=== PATIENT | male | born 1950 | race Caucasian/White ===

== ENCOUNTER 2017-01-26 06:23 | Emergency (ER) | payer MEDICARE, OTHER ==
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
[2017-01-26 08:19] VITALS: BP 118/68
== END 2017-01-26 08:10 | disposition home or self-care (01) ==
LOC: ER 06:23
DX: S51.812A Laceration without foreign body of left forearm, initial encounter (principal); R42 Dizziness and giddiness; J44.9 Chronic obstructive pulmonary disease, unspecified; W01.198A Fall on same level from slipping, tripping and stumbling with subsequent striking against other object, initial encounter; Y92.009 Unspecified place in unspecified non-institutional (private) residence as the place of occurrence of the external cause; Z99.81 Dependence on supplemental oxygen; Z87.891 Personal history of nicotine dependence
CPT/HCPCS: 99283

== ENCOUNTER → 2017-02-15 | Outpatient (CLI) | payer MEDICARE, OTHER | LOC: RAD 08:20 | PROVIDERS: ATTEND Orthopaedic Surgery | DX: M25.562 Pain in left knee (principal) ==

== ENCOUNTER 2018-03-13 05:26 | Day surgery (SDC) | payer MEDICARE, OTHER ==
--- NOTE | 2018-03-08 12:11 | RADIOLOGY REPORT (SQ) ---
EXAM DESCRIPTION: CHEST PA/LATERAL COMPLETED DATE/TIME: 03/08/2018 12:00 pm REASON FOR STUDY: PRE OP COMPARISON: CT chest 07/24/2013 EXAM PARAMETERS: NUMBER OF VIEWS: two views TECHNIQUE: Digital Frontal and Lateral radiographic views of the chest acquired. RADIATION DOSE: NA LIMITATIONS: none FINDINGS: LUNGS AND PLEURA: A few heavy markings are seen at the lung bases. Likely chronic. Inter stitial changes seen at the lung bases on prior CT. Correlate clinically. Lungs otherwise clear. MEDIASTINUM AND HILAR STRUCTURES: No masses or contour abnormalities. HEART AND VASCULAR STRUCTURES: Heart normal size. No evidence for failure. BONES: Old rib fractures on the right. HARDWARE: None in the chest. OTHER: No other significant finding. IMPRESSION: Heavy bibasilar markings, likely chronic. Correlate clinically. Lungs otherwise clear. TECHNICAL DOCUMENTATION: JOB ID: [id number] [employer]- All Rights Reserved Reading location - IP/workstation name: [email or web address]
[2018-03-08 12:55] LABS: HEMATOCRIT 42.7 % (37.9-51.0); HEMOGLOBIN 14.4 g/dL (13.5-17.0); MEAN CORPUSCULAR HEMOGLOBIN 32.5 pg (27.0-33.4); MEAN CORPUSCULAR HGB CONC 33.6 g/dL (32.0-36.0); MEAN CORPUSCULAR VOLUME 97 fl (80-97); PLATELET COUNT 109 10^3/uL (150-450); RED BLOOD COUNT 4.41 10^6/uL (4.35-5.55); RED CELL DISTRIBUTION WIDTH 16.2 % (11.5-14.0); WHITE BLOOD COUNT 7.1 10^3/uL (4.0-10.5)
[2018-03-08 12:59] LABS: APPEARANCE,URINE CLEAR; BILIRUBIN,URINE NEGATIVE (NEGATIVE); COLOR,URINE YELLOW; GLUCOSE, URINE NEGATIVE (NEGATIVE); KETONES,URINE NEGATIVE (NEGATIVE); LEUKOCYTE ESTERASE,URINE NEGATIVE (NEGATIVE); NITRITE,URINE NEGATIVE (NEGATIVE); PROTEIN,URINE NEGATIVE (NEGATIVE); URINE SPECIFIC GRAVITY 1.021; UROBILINOGEN,URINE NEGATIVE mg/dL (<2.0)
[2018-03-08 12:59] LABS: INTERNATIONAL RATION (INR) 0.97; PROTHROMBIN TIME 13.3 SEC (11.4-15.4)
[2018-03-08 13:00] LABS: PARTIAL THROMBOPLASTIN TIME 33.9 SEC (23.5-35.8)
--- NOTE | 2018-03-08 22:43 | EKG REPORT ---
SEVERITY:- ABNORMAL ECG - SINUS BRADYCARDIA LEFT ANTERIOR FASCICULAR BLOCK RVH WITH SECONDARY REPOLARIZATION ABNORMALITY : Confirmed by: Anthony Shabazz 08-Mar-2018 19:43:01
[~2018-03-13 05:26] MED LIST: CEFAZOLIN 1 GM/D5W RTU 1 GM/50 ML RTUPB IV PRN; LACTATED RINGERS 1000 ML IV PRN; LIDOCAINE 0.5% INJ-PF (5 MG/ML) 50 ML SDV SUBCUT PRN
[2018-03-13] MEDS ORDERED: ALBUTEROL SULFATE 0.083% NEB 2.5 MG/3 ML AMPUL NEB ONE (06:10)
[2018-03-13] MEDS ORDERED: LIDOCAINE 1% INJ-PF (10 MG/ML) 30 ML SDV ONE (06:48)
[2018-03-13] MEDS ORDERED: SODIUM BICARBONATE 8.4% INJ 50 MEQ/50 ML DISP.SYRIN ONE (06:48)
[2018-03-13] MEDS ORDERED: FENTANYL CITRATE INJ/PF 100 MCG/2 ML AMPUL ONE (06:53)
[2018-03-13] MEDS ORDERED: KETAMINE HCL INJ 500 MG/10 ML VIAL ONE (06:53)
[2018-03-13] MEDS ORDERED: MIDAZOLAM 2 MG/2 ML INJ ONE (06:54)
[2018-03-13] MEDS ORDERED: PROPOFOL INJ 200 MG/20 ML VIAL IV ONE (06:54)
[2018-03-13] MEDS ORDERED: DEXMEDETOMIDINE INJ 80 MCG/20 ML VIAL IV ONE (07:09)
[2018-03-13] MEDS ORDERED: FENTANYL CITRATE INJ/PF 100 MCG/2 ML AMPUL IV PRN (08:11)
[2018-03-13] MEDS ORDERED: DIPHENHYDRAMINE HCL 50 MG/ML VIAL IV PRN (08:11)
[2018-03-13] MEDS ORDERED: PROMETHAZINE HCL INJ 25 MG/1 ML VIAL IV PRN (08:11)
[2018-03-13] MEDS ORDERED: CEFAZOLIN INJ 1 GM VIAL ONE (08:46)
[2018-03-13] MEDS ORDERED: ONDANSETRON HCL INJ/PF 4 MG/2 ML SDV ONE (08:48)
[2018-03-13] MEDS ORDERED: OXYCODONE-ACETAMINOPHEN 5-325 MG TABLET PO PRN (09:00)
--- NOTE | 2018-03-13 09:06 | OPERATIVE REPORT E ---
Operative Report NAME: IRAIS COBIAN : 1950 AGE: 68Y DATE OF SURGERY: 03/13/2018 ROOM: PREOPERATIVE DIAGNOSIS: L1 compression fracture with intractable pain. POSTOPERATIVE DIAGNOSIS: L1 compression fracture with intractable pain. OPERATIVE PROCEDURE: L1 bilateral balloon kyphoplasty using peripedicular approach. SURGEON: ALIN PARIKH M.D. ANESTHESIA: MAC. ASSISTANTS: None. FINDINGS: Fracture as described above compared with MRI. COMPLICATIONS: Small amount of extravasation of cement into the L1-L2 disk. BLOOD LOSS: Minimal. INDICATIONS: Intractable pain with positive MRI findings. PROCEDURE NOTE: After obtaining informed consent and advising the patient of the risks and benefits, including neurological injury, paralysis, exacerbation of pain, bleeding, infection, allergic reaction, and , he was taken to the operating room and placed comfortably in the prone position. MAC anesthesia was administered. He was prepped with chlorhexidine with appropriate drying time followed by appropriate draping. Fluoroscopy was used to evaluate the spine and identify the affected L1 vertebral body. AP and lateral views were utilized simultaneously. Beginning with the right peripedicular approach, a suitable skin entrance site was identified and anesthetized with 1% lidocaine with bicarb followed by anesthetization with the same material down to the pedicle as seen on the AP and lateral views. A small incision was then made at the selected region. The express trocar was then advanced with several repositioning attempts. The needle entered satisfactorily in the peripedicular approach and into the vertebral body. Despite several attempts to get it to move more superiorly, it remained somewhat inferior into the vertebral body itself. This procedure was then repeated on the right. Balloons were inflated and removed. The filling tubes were placed, and beginning on the right side, filling with cement was initiated. A total of 0.8 mL were injected into the right region with a small amount of extravasation of cement into the L1-L2 disk. A total of 1.2 mL of cement was placed into the left pedicle with no evidence of extravasation and bilateral spreading of the cement into the vertebral body. The decision was made to stop to avoid further extravasation into the L1-L2 disk. Instrumentation was removed after the cement had been allowed hardening time. The region was cleansed and sterile dressings were then placed. The patient was then taken to the PACU for further postoperative care and monitoring. DICTATING PHYSICIAN: ALIN PARIKH M.D. [id number] PHY#: [id number] ID: [id number] JOB#: [id number] ACCT: [id number] cc:ALIN PARIKH M.D. >
--- NOTE | 2018-03-13 10:34 | RADIOLOGY REPORT (SQ) ---
EXAM DESCRIPTION: NO CHG FLUORO; L SPINE 2 VIEWS COMPLETED DATE/TIME: 03/13/2018 9:16 am REASON FOR STUDY: KYPHOPLASTY LUMBAR ASST WITH FLUORO IN OR S32.010S WEDGE COMPRESSION FRACTURE OF FIRST LUMBAR VERTEBRA Z79.01 MCC (CURRENT) USE OF ANTICOAGULANTS COMPARISON: None. FLUOROSCOPY TIME: 4.3 minutes 62 images saved to PACS. TECHNIQUE: Intra-operative images acquired during surgical procedure to evaluate progress. NUMBER OF IMAGES: 62 LIMITATIONS: None. FINDINGS: Selected images from kyphoplasty approximately L1. IMPRESSION: IMAGE(S) OBTAINED DURING PROCEDURE. COMMENT: Quality ID 145: Final reports for procedures using fluoroscopy that document radiation exp osure indices, or exposure time and number of fluorographic images (if radiation exposure indices are not available) Please consult full operative report of the attending physician for description of the procedure. TECHNICAL DOCUMENTATION: JOB ID: [id number] [employer]- All Rights Reserved Reading location - IP/workstation name: [email or web address]
--- NOTE | 2018-03-13 10:34 | RADIOLOGY REPORT (SQ) ---
EXAM DESCRIPTION: NO CHG FLUORO; L SPINE 2 VIEWS COMPLETED DATE/TIME: 03/13/2018 9:16 am REASON FOR STUDY: KYPHOPLASTY LUMBAR ASST WITH FLUORO IN OR S32.010S WEDGE COMPRESSION FRACTURE OF FIRST LUMBAR VERTEBRA Z79.01 DETENTION (CURRENT) USE OF ANTICOAGULANTS COMPARISON: None. FLUOROSCOPY TIME: 4.3 minutes 62 images saved to PACS. TECHNIQUE: Intra-operative images acquired during surgical procedure to evaluate progress. NUMBER OF IMAGES: 62 LIMITATIONS: None. FINDINGS: Selected images from kyphoplasty approximately L1. IMPRESSION: IMAGE(S) OBTAINED DURING PROCEDURE. COMMENT: Quality ID 145: Final reports for procedures using fluoroscopy that document radiation exp osure indices, or exposure time and number of fluorographic images (if radiation exposure indices are not available) Please consult full operative report of the attending physician for description of the procedure. TECHNICAL DOCUMENTATION: JOB ID: [id number] [employer]- All Rights Reserved Reading location - IP/workstation name: [email or web address]
[2018-03-13 11:34] VITALS: BP 90/53
== END 2018-03-13 10:20 | disposition home or self-care (01) ==
LOC: OROUT 05:26
PROVIDERS: ATTEND Pain Medicine Interventional Pain Medicine
DX: S32.010S Wedge compression fracture of first lumbar vertebra, sequela (principal); X58.XXXS Exposure to other specified factors, sequela; J44.9 Chronic obstructive pulmonary disease, unspecified; M06.9 Rheumatoid arthritis, unspecified; E07.9 Disorder of thyroid, unspecified; I25.2 Old myocardial infarction; N18.3 Chronic kidney disease, stage 3 (moderate); Z79.01 Long term (current) use of anticoagulants; Z79.891 Long term (current) use of opiate analgesic; Z79.899 Other long term (current) drug therapy; Z79.51 Long term (current) use of inhaled steroids; Z79.82 Long term (current) use of aspirin; Z99.81 Dependence on supplemental oxygen; Z85.828 Personal history of other malignant neoplasm of skin
CPT/HCPCS: 93005; 36415; 85027; 85610; 85730; 81001; 71046; 72100; 93010; 94640; 22514; Q9966; J2250; J0690 ×2; J3010; J3490 ×3; J2405; A9270; 1936; J2704

== ENCOUNTER 2018-07-06 12:37 | Emergency (ER) | payer MEDICARE, OTHER ==
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
[2018-07-06 14:43] VITALS: BP 125/78
--- NOTE | 2018-07-06 21:38 | EKG REPORT ---
SEVERITY:- ABNORMAL ECG - SINUS RHYTHM LEFT ANTERIOR FASCICULAR BLOCK CONSIDER RVH W/ SECONDARY REPOL ABNORMALITY BORDERLINE PROLONGED QT INTERVAL : Confirmed by: Anthony Shabazz 06-Jul-2018 21:37:49
== END 2018-07-06 14:43 | disposition home or self-care (01) ==
LOC: ER 12:37
DX: R06.02 Shortness of breath (principal); J44.9 Chronic obstructive pulmonary disease, unspecified; Z99.81 Dependence on supplemental oxygen; X37.0XXA Hurricane, initial encounter; Z87.891 Personal history of nicotine dependence
CPT/HCPCS: 93005; 93010; 99284

== ENCOUNTER 2018-07-07 16:29 | Emergency (ER) | payer MEDICARE, OTHER ==
[2018-07-07 17:00] VITALS: BP 121/63
[2018-07-07] MEDS ORDERED: CARVEDILOL 6.25 MG TABLET PO ONE (17:59)
[2018-07-07] MEDS ORDERED: ASPIRIN 81 MG TABLET, ENT COATED PO ONE (18:00)
--- NOTE | 2018-07-07 18:07 | ER Document Report ---
ED General - General Chief Complaint: Shortness Of Breath Stated Complaint: MED REFILL Time Seen by Provider: 07/07/18 17:59 Mode of Arrival: Wheelchair Information source: Patient Notes: Patient is here to get the evening dose of his medication. He said he has his medication at home but he needs his evening dose now. Is requesting to get Coreg 6.25 mg p.o., aspirin 81 mg p.o. Patient otherwise does not have any medical complaints currently. Patient is home O2 dependent. Review of system is negative. TRAVEL OUTSIDE OF THE [place] IN LAST 30 DAYS: No - HPI Quality of pain: No pain Severity: None Pain Level: Denies Associated symptoms: None Exacerbated by: Denies Relieved by: Denies Similar symptoms previously: No Recently seen / treated by doctor: No - Related Data Allergies/Adverse Reactions: egg [Egg] Allergy (Verified 07/06/18 12:38) Influenza TV-S 07-01 Vaccine [From Fluarix [id number] (PF)] Allergy (Verified 12:38) Past Medical History - Social History Smoking Status: Unknown if Ever Smoked Family History: Reviewed & Not Pertinent - Past Medical History Cardiac Medical History: Denies: Hx Coronary Artery Disease, Hx Heart Attack, Hx Hypertension - LOW BP Pulmonary Medical History: Reports: Hx Asthma, Hx COPD - 8L O2 Denies: Hx Bronchitis, Hx Pneumonia Neurological Medical History: Denies: Hx Cerebrovascular Accident, Hx Seizures Renal/ Medical History: Denies: Hx Peritoneal Dialysis Musculoskeletal Medical History: Reports Hx Arthritis Past Surgical History: Reports: Hx Orthopedic Surgery - left thumb - Immunizations Hx Diphtheria, Pertussis, Tetanus Vaccination: Yes Review of Systems - Review of Systems Constitutional: denies: Chills, Fever EENT: No symptoms reported Cardiovascular: No symptoms reported Respiratory: No symptoms reported Gastrointestinal: No symptoms reported Genitourinary: No symptoms reported Male Genitourinary: No symptoms reported Musculoskeletal: No symptoms reported Skin: No symptoms reported Hematologic/Lymphatic: No symptoms reported Neurological/Psychological: No symptoms reported -: Yes All other systems reviewed and negative Physical Exam - Vital signs Vitals: Temp Pulse Resp BP Pulse Ox 98.0 F 92 28 H 121/63 92 07/07/18 16:43 07/07/18 16:43 07/07/18 16:43 07/07/18 16:43 07/07/18 16:43 - General General appearance: Appears well, Alert In distress: None - HEENT Head: Normocephalic, Atraumatic Eyes: Normal Pupils: PERRL - Respiratory Respiratory status: No respiratory distress Chest status: Nontender Breath sounds: Normal Chest palpation: Normal - Cardiovascular Rhythm: Regular Heart sounds: Normal auscultation Murmur: No - Abdominal Inspection: Normal Distension: No distension Bowel sounds: Normal Tenderness: Nontender Organomegaly: No organomegaly - Back Back: Normal, Nontender - Extremities General upper extremity: Normal inspection, Nontender, Normal color, Normal ROM , Normal temperature General lower extremity: Normal inspection, Nontender, Normal color, Normal ROM , Normal temperature, Normal weight bearing. No: Saniya's sign - Neurological Neuro grossly intact: Yes Cognition: Normal Orientation: AAOx4 [place] Coma Scale Eye Opening: Spontaneous Kristin Coma Scale Verbal: Oriented [place] Coma Scale Motor: Obeys Commands [place] Coma Scale Total: 15 Speech: Normal Motor strength normal: LUE, RUE, LLE, RLE Sensory: Normal - Psychological Associated symptoms: Normal affect, Normal mood - Skin Skin Temperature: Warm Skin Moisture: Dry Skin Color: Normal Course - Vital Signs Vital signs: Temp Pulse Resp BP Pulse Ox 98.0 F 92 28 H 121/63 92 07/07/18 16:43 07/07/18 16:43 07/07/18 16:43 07/07/18 16:43 07/07/18 16:43 Discharge - Discharge Clinical Impression: Normal physical examination Condition: Stable Disposition: HOME, SELF-CARE Additional Instructions: Please follow-up with her primary doctor tomorrow morning. Return to the emergency room if her condition worsens. Referrals: JEIMY ONEILL MD [ACTIVE STAFF] - Follow up as needed
== END 2018-07-07 18:01 | disposition home or self-care (01) ==
LOC: ER 16:29
DX: Z00.00 Encounter for general adult medical examination without abnormal findings (principal); J44.9 Chronic obstructive pulmonary disease, unspecified; Z99.81 Dependence on supplemental oxygen
CPT/HCPCS: 99284; A9270 ×2

== ENCOUNTER 2020-03-09 11:53 | Inpatient (IN) | payer MEDICARE, OTHER ==
[2020-03-09 12:07] LABS: ABSOLUTE LYMPHOCYTES (AUTO) 1.4 10^3/uL (0.5-4.7); ABSOLUTE MONOCYTES (AUTO) 0.2 10^3/uL (0.1-1.4); BASOPHILS % (AUTO) 0.3 % (0-2); EOSINOPHILS % (AUTO) 0.2 % (0-6); HEMATOCRIT 24.6 % (37.9-51.0); HEMOGLOBIN 8.6 g/dL (13.5-17.0); LYMPHOCYTES % (AUTO) 21.1 % (13-45); MEAN CORPUSCULAR HEMOGLOBIN 40.1 pg (27.0-33.4); MONOCYTES % (AUTO) 2.5 % (3-13); PLATELET COUNT 124 10^3/uL (150-450); RED BLOOD COUNT 2.14 10^6/uL (4.35-5.55); RED CELL DISTRIBUTION WIDTH 15.2 % (11.5-14.0); SEGMENTED NEUTROPHILS % (AUTO) 75.9 % (42-78); TOTAL CELLS COUNTED % (AUTO) 100 %; WHITE BLOOD COUNT 6.6 10^3/uL (4.0-10.5)
[2020-03-09 12:15] LABS: MEAN CORPUSCULAR VOLUME 115 fl (80-97)
[2020-03-09 12:26] LABS: PLATELET COMMENT DECREASED; PLATELET LARGE PRESENT; POLYCHROMASIA SLIGHT
[2020-03-09 12:30] LABS: ALBUMIN 4.8 g/dL (3.5-5.0); ALKALINE PHOSPHATASE 67 U/L (38-126); ANION GAP 11 (5-19); ASPARTATE AMINO TRANSFERASE 27 U/L (17-59); BILIRUBIN,DIRECT 0.3 mg/dL (0.0-0.4); BILIRUBIN,TOTAL 1.5 mg/dL (0.2-1.3); BLOOD UREA NITROGEN 18 mg/dL (7-20); CALCIUM 8.8 mg/dL (8.4-10.2); CARBON DIOXIDE 28 mmol/L (22-30); CHLORIDE 96 mmol/L (98-107); CREATINE KINASE 200 U/L (55-170); GLUCOSE 140 mg/dL (75-110); POTASSIUM 4.1 mmol/L (3.6-5.0); TOTAL PROTEIN 8.3 g/dL (6.3-8.2)
[2020-03-09 12:42] LABS: CREATINE KINASE MB 8.77 ng/mL (<4.55); NT PRO BNP 4220 pg/mL (<125)
[2020-03-09 12:44] LABS: TROPONIN I < 0.012 ng/mL
--- NOTE | 2020-03-09 13:01 | RADIOLOGY REPORT (SQ) ---
EXAM DESCRIPTION: CHEST SINGLE VIEW IMAGES COMPLETED DATE/TIME: 03/09/2020 12:47 pm REASON FOR STUDY: sob COMPARISON: None. EXAM PARAMETERS: NUMBER OF VIEWS: One view. TECHNIQUE: Single frontal radiographic view of the chest acquired. RADIATION DOSE: NA LIMITATIONS: None. FINDINGS: LUNGS AND PLEURA: Ill-defined left lingular and basilar opacities. Linear right infrahila r opacities. No large effusion. No pneumothorax. MEDIASTINUM AND HILAR STRUCTURES: No masses. Contour normal. HEART AND VASCULAR STRUCTURES: Borderline enlarged cardiac silhouette. Vascular calcifications. BONES: No acute findings. HARDWARE: None in the chest. OTHER: No other significant finding. IMPRESSION: Ill-defined left basilar opacities, possibly atelectasis or infection. Mild linear righ t infrahilar opacities, likely atelectasis. TECHNICAL DOCUMENTATION: JOB ID: [id number] 2010 [employer]- All Rights Reserved Reading location - IP/workstation name: [email or web address]
[2020-03-09 13:22] LABS: APPEARANCE,URINE CLEAR; BILIRUBIN,URINE NEGATIVE (NEGATIVE); COLOR,URINE YELLOW; GLUCOSE, URINE NEGATIVE (NEGATIVE); KETONES,URINE NEGATIVE (NEGATIVE); LEUKOCYTE ESTERASE,URINE NEGATIVE (NEGATIVE); NITRITE,URINE NEGATIVE (NEGATIVE); PROTEIN,URINE NEGATIVE (NEGATIVE); URINE SPECIFIC GRAVITY 1.018
--- NOTE | 2020-03-09 14:48 | ER Document Report ---
ED General - General Chief Complaint: Shortness Of Breath Stated Complaint: SHORTNESS OF BREATH Time Seen by Provider: 03/09/20 12:01 Information source: Patient TRAVEL OUTSIDE OF THE [place] IN LAST 30 DAYS: No - HPI Notes: Patient arrives complaining of shortness of breath. Patient states he has been short of breath for several days. He states he normally wears 8 L of oxygen at home. He states he is not increased this because his doctor told him not to go any higher than 8. He states he occasionally uses some nebulizers but has not been doing this recently. He states that he has been more short of breath when he exerts himself and better with resting. He denies any known history of congestive heart failure. He states he does have COPD. Patient denies any fevers. No known COVID exposures. He has had a dry cough. But he states his dry cough is no worse than usual. There is no radiation of symptoms. They have been moderate to severe. They have been intermittent. - Related Data Allergies/Adverse Reactions: egg [Egg] Allergy (Verified 03/09/20 12:00) Influenza TV-S - Vaccine [From Fluarix [id number] (PF)] Allergy (Verified 03/09/20 12:00) Home Medications: Advair,. Albuteral,. Azithromycin. Butrans patch. zyrtec. coreg. Voltare gel. benadryl. ASA. Fluticasone propionate N/S. Neurontin. lidocaine. Mucinex. Nasonex. O2. Prednisone. Simvastatin. Singulair. S piriva. synthroid. zolpidem tartrate Past Medical History - General Information source: Patient - Social History Smoking Status: Former Smoker Chew tobacco use (# tins/day): No Frequency of alcohol use: None Drug Abuse: None Family History: Reviewed & Not Pertinent Patient has homicidal ideation: No - Past Medical History Cardiac Medical History: Denies: Hx Coronary Artery Disease, Hx Heart Attack, Hx Hypertension - LOW BP Pulmonary Medical History: Reports: Hx Asthma, Hx COPD - 8L O2 Denies: Hx Bronchitis, Hx Pneumonia Neurological Medical History: Denies: Hx Cerebrovascular Accident, Hx Seizures Renal/ Medical History: Denies: Hx Peritoneal Dialysis Musculoskeletal Medical History: Reports Hx Arthritis Past Surgical History: Reports: Hx Orthopedic Surgery - left thumb - Immunizations Hx Diphtheria, Pertussis, Tetanus Vaccination: Yes Review of Systems - Review of Systems Constitutional: Malaise, Weakness. denies: Chills, Fever Cardiovascular: denies: Chest pain, Palpitations Respiratory: Cough, Short of breath -: Yes All other systems reviewed and negative Physical Exam - Vital signs Vitals: Pulse Ox 89 L 03/09/20 11:53 Interpretation: Hypoxic - General General appearance: Appears well, Alert - HEENT Head: Normocephalic, Atraumatic Eyes: Normal Pupils: PERRL - Respiratory Respiratory status: No respiratory distress Chest status: Nontender Breath sounds: Decreased air movement Chest palpation: Normal - Cardiovascular Rhythm: Regular Heart sounds: Normal auscultation Murmur: No - Abdominal Inspection: Normal Distension: No distension Bowel sounds: Normal Tenderness: Nontender Organomegaly: No organomegaly - Back Back: Normal, Nontender - Extremities General upper extremity: Normal inspection, Nontender, Normal color, Normal ROM, Normal temperature General lower extremity: Normal inspection, Nontender, Normal color, Normal ROM, Normal temperature, Normal weight bearing. No: Saniya's sign - Neurological Neuro grossly intact: Yes Cognition: Normal Orientation: AAOx4 Kristin Coma Scale Eye Opening: Spontaneous Kristin Coma Scale Verbal: Oriented [place] Coma Scale Motor: Obeys Commands Kristin Coma Scale Total: 15 Speech: Normal Motor strength normal: LUE, RUE, LLE, RLE Sensory: Normal - Psychological Associated symptoms: Normal affect, Normal mood - Skin Skin Temperature: Warm Skin Moisture: Dry Skin Color: Pale Course - Vital Signs Vital signs: Temp Pulse Resp BP Pulse Ox 97.7 F 12 107/66 100 03/09/20 12:03 03/09/20 13:01 03/09/20 12:00 03/09/20 13:01 - Laboratory Result Diagrams: 03/09/20 11:45 03/09/20 11:45 Laboratory results interpreted by me: 03/09/20 03/09/20 03/09/20 11:45 11:45 11:45 RBC 2.14 L Hgb 8.6 L Hct 24.6 L MCV 115 H MCH 40.1 H RDW 15.2 H Plt Count 124 L [place] % (Auto) 2.5 L Sodium 135.0 L Chloride 96 L Creatinine 1.46 H Est GFR ( Amer) 57 L Est GFR (MDRD) Non-Af 47 L Glucose 140 H Total Bilirubin 1.5 H Creatine Kinase 200 H CK-MB (CK-2) 8.77 H NT-Pro-B Natriuret Pep 4220 H Total Protein 8.3 H Urine Urobilinogen 03/09/20 13:00 RBC Hgb Hct MCV MCH RDW Plt Count [place] % (Auto) Sodium Chloride Creatinine Est GFR ( Amer) Est GFR (MDRD) Non-Af Glucose Total Bilirubin Creatine Kinase CK-MB (CK-2) NT-Pro-B Natriuret Pep Total Protein Urine Urobilinogen 4.0 H - Diagnostic Test Radiology reviewed: Image reviewed, Reports reviewed - EKG Interpretation by De EKG shows normal: Sinus rhythm Rate: Normal - 67 Rhythm: NSR [place]/QRS: RBBB Discharge - Discharge Clinical Impression: Anemia Qualifiers: Anemia type: unspecified type Qualified Code(s): D64.9 - Anemia, unspecified Dyspnea Qualifiers: Dyspnea type: dyspnea on exertion Qualified Code(s): R06.00 - Dyspnea, unspecified CHF (congestive heart failure) Qualifiers: Heart failure type: unspecified Heart failure chronicity: acute Qualified Code(s): I50.9 - Heart failure, unspecified Condition: Serious Disposition: ADMITTED INPATIENT Admitting Provider: Agueda (Hospitalist) Unit Admitted: Telemetry
--- NOTE | 2020-03-09 15:16 | RADIOLOGY REPORT (SQ) ---
EXAM DESCRIPTION: CT CHEST WITHOUT IMAGES COMPLETED DATE/TIME: 03/09/2020 2:28 pm REASON FOR STUDY: dyspnea COMPARISON: 03/09/2020 TECHNIQUE: CT scan performed of the chest without intravenous contrast. Images reviewed with lung, soft tissue and bone windows. Reconstructed coronal and sagittal MPR images reviewed. All images st ored on PACS. All CT scanners at this facility use dose modulation, iterative reconstruction, and/or weight based d osing when appropriate to reduce radiation dose to as low as reasonably achievable (ALARA). [facility]: Dose Right [facility]: CareDose [facility]: Dose Right [facility]: Teradose 4D [facility]: Smart Conisus RADIATION DOSE: CT Rad equipment meets quality standard of care and radiation dose reduction techniq ues were employed. CTDIvol: 17.4 mGy. DLP: 689 mGy-cm. mGy. LIMITATIONS: No technical limitations. FINDINGS: LUNGS AND PLEURA: Mild left basilar lingular peripheral consolidation ground-glass attenua tion. Emphysematous change bilaterally. Mild pleural thickening along the left posterior and latera l lung base. No pleural effusion. No pneumothorax. No discrete pulmonary mass. There is a ill-def ined right lower lobe pulmonary nodule measuring approximately 8 mm (series 4, image 37). HILAR AND MEDIASTINAL STRUCTURES: No mediastinal, hilar or axillary adenopathy. HEART AND VASCULAR STRUCTURES: Cardiomegaly. Three-vessel coronary atherosclerosis. No significant pericardial effusion. UPPER ABDOMEN: Partially visualized aortic stent graft. No acute findings. THYROID AND OTHER SOFT TISSUES: No masses. No adenopathy. BONES: No acute bony abnormality. No suspicious lytic or blastic osseous lesions. Chronic posterior right-sided rib fractures. HARDWARE: Partially visualized abdominal aortic stent graft. OTHER: No other significant findings. IMPRESSION: 1. Mild left basilar and lingular peripheral consolidation and ground-glass attenuation likely atelectatic change although infectious/inflammatory process not entirely excluded. 2. Significant three-vessel coronary atherosclerosis. Cardiomegaly. 3. Emphysema. 4. 8 mm right lower lobe ground-glass nodule. Follow-up as below. COMMENT: Fleischner Criteria for Ground Glass Nodules: >6 mm ground glass single nodule: CT 6-12 mo, then CT every 2 yr until 5 yr TECHNICAL DOCUMENTATION: JOB ID: [id number] Quality ID # [id number]: Final reports with documentation of one or more dose reduction techniques (e.g., Au tomated exposure control, adjustment of the mA and/or kV according to patient size, use of iterative reconstruction technique) 2010 [employer]- All Rights Reserved Reading location - IP/workstation name: [email or web address]
[2020-03-09] MEDS ORDERED: MAG HYDROX/AL HYDROX/SIMETH SUSP 30 ML UDCUP PO PRN (17:43)
[2020-03-09] MEDS ORDERED: MAGNESIUM HYDROXIDE SUSP 30 ML UDCUP PO PRN (17:43)
[2020-03-09] MEDS ORDERED: ZOLPIDEM TARTRATE 5 MG TABLET PO PRN (17:43)
[2020-03-09] MEDS ORDERED: LEVALBUTEROL HCL NEB 1.25 MG/3 ML AMPUL NEB PRN (17:43)
[2020-03-09] MEDS ORDERED: PROMETHAZINE HCL INJ 25 MG/1 ML VIAL IV PRN (17:43)
[2020-03-09] MEDS ORDERED: ACETAMINOPHEN 325 MG TABLET PO PRN (17:43)
--- NOTE | 2020-03-09 19:09 | PDOC H&P ---
History of Present Illness Admission Date/PCP: 03/09/20 16:23 Patient complains of: Shortness of breath History of Present Illness: IRAIS COBIAN is a 70 year old male who reports that he has been experiencing increased shortness of breath. He does have chronic obstructive pulmonary disease and is on home oxygen. He has hypothyroidism and is on levothyroxine. He has a history of an abdominal aortic aneurysm but denies any cardiac history but he is on statin therapy and carvedilol. He denies history of anemia but his hemoglobin is 8.6 with an MCV of 115. He is requiring nasal cannula oxygen (that he is on at home). He keeps a meticulous list of his medications. In addition to the COPD he does have chronic pain. On exam his chest x-ray has some groundglass appearance that could be heart failure. He does have marked cardiomegaly coronary atherosclerosis was noted on the CT scan. There was an 8 mm pulmonary nodule. His brain natruretic peptide was elevated. He has most likely cause of shortness of breath is combination of his COPD and heart failure. He will be admitted for further evaluation to the hospitalist service. This will include medication management with the addition of diuretic therapy as well checking a lipid panel, TSH. I have ordered fecal occult blood testing as well as anemia work-up. Past Medical History Cardiac Medical History: Reports: Myocardial Infarction - 1998, Hyperlipidema, Other - AAA Denies: Coronary Artery Disease, Hypertension - LOW BP Pulmonary Medical History: Reports: Asthma, Chronic Obstructive Pulmonary Disease (COPD) - 8L O2 Denies: Bronchitis, Pneumonia Neurological Medical History: Denies: Seizures Endocrine Medical History: Reports: Hypothyroidism Renal/ Medical History: Reports: Chronic Kidney Disease, Other - BPH Malignancy Medical History: Reports: Skin Cancer Musculoskeltal Medical History: Reports: Arthritis, Other - Lumbar disc disease Psychiatric Medical History: Denies: Alcohol Dependency, Tobacco Dependency Hematology: Denies: Anemia Past Surgical History Past Surgical History: Reports: Cardiac Catheterization, Herniorrhaphy, Orthopedic Surgery - left thumb, Tonsillectomy, Vascular Surgery - AAA repair, Other - skin cancer, constipation Social History Information Source: Patient, Outside Facility Records 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 Father of 2. Family History Family History: Reviewed & Not Pertinent Parental Family History Reviewed: Yes Children Family History Reviewed: Yes Sibling(s) Family History Reviewed.: Yes Medication/Allergy Home Medications: Patient Own Medication List .SEE COMMENTS MDD START WITH LABEL COMMENTS 03/09/20 Buprenorphine [Butrans] 1 patch TOP .QWEEKLY 03/09/20 Allergies/Adverse Reactions: egg [Egg] Allergy (Verified 03/09/20 12:00) Influenza TV-S 07-01 Vaccine [From Fluarix [id number] (PF)] Allergy (Verified 03/09/20 12:00) Review of Systems All systems: reviewed and no additional remarkable complaints except as stated Cardiovascular: PRESENT: dyspnea on exertion Respiratory: PRESENT: dyspnea Genitourinary: PRESENT: nocturia Physical Exam Vital Signs: Temp Pulse Resp BP Pulse Ox 98.0 F 8 L 98/55 L 100 03/09/20 17:07 03/09/20 18:01 03/09/20 18:00 03/09/20 18:01 Intake & Output 03/08/20 03/09/20 03/10/20 06:59 06:59 06:59 Weight 97.7 kg General appearance: PRESENT: no acute distress, cooperative, well-developed, well-nourished Exam: Exam was somewhat limited as patient was sitting COVID screening. Head exam: PRESENT: atraumatic, normocephalic Eye exam: PRESENT: conjunctiva pale, EOMI. ABSENT: scleral icterus Ear exam: PRESENT: normal external ear exam. ABSENT: bleeding, drainage Mouth exam: PRESENT: dry mucosa, tongue midline Respiratory exam: PRESENT: rales - Left base, symmetrical, unlabored, wheezes - Expiratory wheeze. ABSENT: prolonged expiratory phas, rhonchi, tachypnea Cardiovascular exam: PRESENT: RRR, +S1, +S2 GI/Abdominal exam: PRESENT: normal bowel sounds, soft. ABSENT: distended, guarding, tenderness Rectal exam: PRESENT: deferred Gentrourinary exam: ABSENT: indwelling catheter Extremities exam: PRESENT: pedal edema Musculoskeletal exam: PRESENT: ambulatory, deformity - Left thumb resection Neurological exam: PRESENT: alert, awake, oriented to person, oriented to place, oriented to time, oriented to situation, CN II-XII grossly intact. ABSENT: altered Psychiatric exam: PRESENT: flat affect. ABSENT: agitated, anxious Focused psych exam: ABSENT: delusional, paranoid, restlessness Skin exam: PRESENT: dry, pallor, warm. ABSENT: erythema, rash Results Laboratory Results: 03/09/20 11:45 03/09/20 11:45 03/09/20 03/09/20 03/09/20 11:45 11:45 13:00 WBC 6.6 RBC 2.14 L Hgb 8.6 L Hct 24.6 L MCV 115 H MCH 40.1 H MCHC 35.0 RDW 15.2 H Plt Count 124 L Seg Neutrophils % 75.9 Sodium 135.0 L Potassium 4.1 Chloride 96 L Carbon Dioxide 28 Anion Gap 11 BUN 18 Creatinine 1.46 H Est GFR ( Amer) 57 L Glucose 140 H Calcium 8.8 Total Bilirubin 1.5 H AST 27 Alkaline Phosphatase 67 Total Protein 8.3 H Albumin 4.8 Urine Color YELLOW Urine Appearance CLEAR Urine pH 5.0 Ur Specific [place] 1.018 Urine Protein NEGATIVE Urine Glucose (UA) NEGATIVE Urine Ketones NEGATIVE Urine Blood NEGATIVE Urine Nitrite NEGATIVE Ur Leukocyte Esterase NEGATIVE Urine WBC (Auto) 1 Urine RBC (Auto) 0 03/09/20 03/09/20 11:45 11:45 Creatine Kinase 200 H CK-MB (CK-2) 8.77 H Troponin I < 0.012 NT-Pro-B Natriuret Pep 4220 H Impressions: Chest X-Ray 03/09/20 12:00 IMPRESSION: Ill-defined left basilar opacities, possibly atelectasis or infection. Mild linear right infrahilar opacities, likely atelectasis. Chest CT 03/09/20 13:12 IMPRESSION: 1. Mild left basilar and lingular peripheral consolidation and ground-glass attenuation likely atelectatic change although infec tious/inflammatory process not entirely excluded. 2. Significant three-vessel coronary atherosclerosis. Cardiomegaly. 3. Emphysema. 4. 8 mm right lower lobe ground-glass nodule. Follow-up as below. Assessment and Plan - Plan Summary Summary: 03/09/2020 The COPD exacerbation with acute on chronic respiratory failure will be treated with nebulizer therapy and supplemental oxygen. No evidence of infection therefore no antibiotics. The patient is suspected of having heart failure. There was cardiomegaly. An echocardiogram and cardiology consult have been ordered. He does have a history of coronary disease. His LDL is still above 100 and I will increase his simvastatin. His TSH was 45. While reviewing his anemia with hematology, a TSH level from there documentation revealed a TSH of 35 several months ago. I will increase his levothyroxine. His anemia is not new. 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 We will coordinate with Dr. Solorzano - Time Time Spent with patient: 35 or more minutes Medications reviewed and adjusted accordingly: Yes Anticipated discharge: Home with Homehealth - Inpatient Certification Based on my medical assessment, after consideration of the patient's comorbiditi es, presenting symptoms, or acuity I expect that the services needed warrant INPATIENT care.: Yes I certify that my determination is in accordance with my understanding of [facility]'s requirements for reasonable and necessary INPATIENT services [42 CFR 412.3e].: Yes Medical Necessity: Need For Continuous Telemetry Monitoring, Need for Nebulizer Therapy and Monitoring of Response Post Hospital Care: D/C [employer] 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
[2020-03-09] MEDS ORDERED: FUROSEMIDE INJ/PF 20 MG/2 ML SDV IV ONE ×2 (19:30→22:30)
[2020-03-09] MEDS: BUDESONIDE NEB 0.5 MG/2 ML AMPUL NEB SCH (20:12)
[2020-03-09] MEDS: IPRATROPIUM/ALBUTEROL 0.5-2.5 MG/3 ML AMPUL NEB SCH (20:12)
[2020-03-09] MEDS: FLUTICASONE NASAL SPRAY 50 MCG/SPRY 120 SPRAY/16 GM NASL SCH (22:36)
[2020-03-09] MEDS: MONTELUKAST SODIUM 10 MG TABLET PO SCH (22:36)
[2020-03-09] MEDS: SIMVASTATIN 10 MG TABLET PO SCH (22:36)
[2020-03-09] MEDS: ASPIRIN 81 MG TABLET, ENT COATED PO SCH (22:36)
[2020-03-09] MEDS: CARVEDILOL 6.25 MG TABLET PO SCH (22:37)
[2020-03-10] MEDS: IPRATROPIUM/ALBUTEROL 0.5-2.5 MG/3 ML AMPUL NEB SCH ×4 (02:35→20:16)
[2020-03-10] MEDS ORDERED: (PENDING PHARMACY ID) (Buprenorphine [Butrans] 1 PATCH) TOP SCH (06:00)
[2020-03-10] MEDS ORDERED: LEVOTHYROXINE SODIUM 0.15 MG TABLET PO SCH (06:00)
[2020-03-10 06:07] LABS: ABSOLUTE LYMPHOCYTES (AUTO) 0.8 10^3/uL (0.5-4.7); ABSOLUTE MONOCYTES (AUTO) 0.1 10^3/uL (0.1-1.4); ABSOLUTE RETICS # 0.041 10^6/uL (0.028-0.122); BASOPHILS % (AUTO) 0.2 % (0-2); EOSINOPHILS % (AUTO) 0.4 % (0-6); HEMATOCRIT 20.2 % (37.9-51.0); LYMPHOCYTES % (AUTO) 15.8 % (13-45); MEAN CORPUSCULAR HEMOGLOBIN 41.5 pg (27.0-33.4); MEAN CORPUSCULAR HGB CONC 36.9 g/dL (32.0-36.0); MEAN CORPUSCULAR VOLUME 113 fl (80-97); MONOCYTES % (AUTO) 2.6 % (3-13); RED CELL DISTRIBUTION WIDTH 14.9 % (11.5-14.0); RETICULOCYTE COUNT (AUTO) 2.29 % (0.66-2.85); TOTAL CELLS COUNTED % (AUTO) 100 %; WHITE BLOOD COUNT 4.9 10^3/uL (4.0-10.5)
[2020-03-10 06:22] LABS: ANION GAP 6 (5-19); BLOOD UREA NITROGEN 15 mg/dL (7-20); CALCIUM 8.8 mg/dL (8.4-10.2); CARBON DIOXIDE 32 mmol/L (22-30); CHLORIDE 96 mmol/L (98-107); GLUCOSE 96 mg/dL (75-110); IRON(TIBC) 88.9 ug/dL (49-181); POTASSIUM 3.9 mmol/L (3.6-5.0); TRIGLYCERIDES 115 mg/dL (<150)
[2020-03-10] MEDS: PANTOPRAZOLE SODIUM 40 MG TABLET.DR PO SCH (06:24)
[2020-03-10 06:33] LABS: DIRECT LDL 136 mg/dL (<100)
--- NOTE | 2020-03-10 06:34 | XCELERA REPORT ---
[address] [address] Transthoracic Echocardiogram Report Name: IRAIS COBIAN Age: 70 yrs Gender: Male : 1950 Patient Status: Inpatient Patient Location: [address] [place] [address] Study Date: 03/09/2020 08:30 PM Height: 71 in Weight: 215 lb BSA: 2.2 m2 Procedure: A complete two-dimensional transthoracic echocardiogram was performed (2D, M-mode, spectral and color flow Doppler). The study was technically difficult with many images being suboptimal in quality. The subcostal views were difficult to obtain and are suboptimal in quality. Reason For Study: Cardiomegaly with suspected heart failure Ordering Physician: DENY SUTTON Performed By: Katalina Samayoa Interpretation Summary The left ventricle is normal in size. Left ventricular systolic function is normal. The Ejection Fraction estimate is 60-65%. Doppler measurements suggest impaired left ventricular relaxation, which is associated with grade I/IV or mild diastolic dysfunction. No gross regional wall motion abnormalities. There is no thrombus. Mild to moderate RVE with mildly to moderately reduced systolic function. Trace MR, mild to moderate TR, mild to moderate PI, mild AI. Moderate to severe pulmonary hypertension by echo and estimated RVSP is approximately 57-62 mm/Hg. No prior studies for comparison. MMode/2D Measurements & Calculations RVDd: 4.8 cm LVIDd: 6.1 cm FS: 60.5 % Ao root diam: 2.9 cm IVSd: 1.1 cm LVIDs: 2.4 cm EDV(Teich): 189.7 ml Ao root area: 6.7 cm2 LVPWd: 0.95 cm ESV(Teich): 20.7 ml LA dimension: 3.8 cm EF(Teich): 89.1 % Doppler Measurements & Calculations MV E max osman: MV P1/2t max osman: Ao V2 max: AI max osman: 63.2 cm/sec 77.0 cm/sec 173.2 cm/sec 335.5 cm/sec MV A max osman: MV P1/2t: 127.1 msec Ao max PG: AI max P.0 cm/sec MVA(P1/2t): 1.7 cm2 12.0 mmHg 45.0 mmHg MV E/A: 0.89 MV dec slope: AI dec slope: 84.1 cm/sec2 177.5 cm/sec2 AI P1/2t: 1168 msec MV dec time: 0.25 sec LV V1 max PG: PA V2 max: PI end-d osman: TR max osman: 3.3 mmHg 69.0 cm/sec 184.6 cm/sec 359.4 cm/sec LV V1 max: PA max P.9 mmHg TR max P.2 cm/sec 51.7 mmHg AV P1/2t-pr_phl: MV P1/2t-pr_phl: 1168 msec 127.1 msec Left Ventricle The left ventricle is normal in size. Left ventricular systolic function is normal. The Ejection Fraction estimate is 60-65%. Doppler measurements suggest impaired left ventricular relaxation, which is associated with grade I/IV or mild diastolic dysfunction. No gross regional wall motion abnormalities. There is no thrombus. Right Ventricle The right ventricle is mild to moderately dilated. The right ventricular systolic function is mild to moderately reduced. Atria The right atrium is moderately dilated. The left atrial size is normal. The interatrial septum is intact with no evidence for an atrial septal defect. Mitral Valve There is mild mitral leaflet calcification. There is no evidence of mitral valve prolapse. There is no mitral valve stenosis. There is a trace amount of mitral regurgitation. Aortic Valve The aortic valve is moderately calcified. There is no aortic valvular vegetation. There is no aortic valve stenosis. There is a mild amount of aortic regurgitation. Tricuspid Valve The tricuspid valve is not well visualized, but is grossly normal. There is no tricuspid valve prolapse. There is no tricuspid stenosis. There is a mild to moderate amount of tricuspid regurgitation. There is moderate to severe pulmonary hypertension by echo. Best estimated RVSP is approximately 57-62 mm/Hg. Pulmonic Valve The pulmonic valve is not well seen, but is grossly normal. There is no pulmonic valvular stenosis. There is a mild to moderate amount of pulmonic regurgitation. Great Vessels Not well visualized. Effusions There is no pericardial effusion. There is no pleural effusion. : DENY SUTTON Antonio
[2020-03-10 06:59] LABS: HEMOGLOBIN 7.5 g/dL (13.5-17.0)
[2020-03-10 07:00] LABS: PLATELET COUNT 91 10^3/uL (150-450)
[2020-03-10 07:03] LABS: ANISOCYTOSIS SLIGHT; POLYCHROMASIA SLIGHT
[2020-03-10 07:04] LABS: BURR CELLS SLIGHT; PLATELET COMMENT DECREASED; TEAR DROP CELLS SLIGHT
[2020-03-10 07:29] LABS: FOLATE 9.32 ng/mL (>2.76)
[2020-03-10] MEDS: BUDESONIDE NEB 0.5 MG/2 ML AMPUL NEB SCH ×2 (08:10→20:16)
--- NOTE | 2020-03-10 10:16 | PDOC CONSULTATION ---
Consultation Consult Date: 03/10/20 Attending physician:: DENY SUTTON Provider Consulted: NANCY MENDEZ Consult reason:: CHF History of Present Illness Admission Date/PCP: 03/09/20 16:23 History of Present Illness: IRAIS COBIAN is a 70 year old male with history of COPD on home oxygen, hypothyroidism, AAA, hyperlipidemia who was admitted to this facility on for shortness of breath and who is consulted to our service for further evaluation of possible heart failure. The patient feels slightly better this morning and specifically denies ischemic symptoms. He denies any history of coronary artery disease in the past. He does complain of lower extremity edema and weight gain at home. Upon further questioning, the patient admitted to a high sodium diet with frequent consumptions of canned foods among other high sodium items. Physical exam on 03/10/2020: GENERAL: Pleasant and conversational. Oriented x3 with normal mood. Not in acute distress. Well groomed and well developed. HEENT: Normocephalic, atraumatic. Pupils equal. Sclerae anicteric. Oropharynx moist. NECK: No JVD. No carotid bruits. LUNGS: Clear to auscultation bilaterally. Normal respiratory effort without the use of accessory muscles or intercostal retractions. CARDIOVASCULAR: Regular rate and rhythm, normal S1 and S2 without murmurs, rubs, or gallops. PMI not displaced. ABDOMEN: No masses or tenderness to palpation. No bruit. No splenomegaly or he patomegaly. No abdominal aorta bruit noted. EXTREMITIES: No edema, no cyanosis, no clubbing. +2 pulses femoral and pedal pulses bilaterally. SKIN: No lesions or rashes. MUSCULOSKELETAL: No chest tenderness to palpation. NEUROLOGIC: Nonfocal. No gross sensory or motor deficits bilateral upper or lower extremities. Cardiac studies: Echocardiogram on 03/09/2020: -LV is normal in size. -EF 60 to 65%. -Grade 1 diastolic dysfunction. -No gross regional wall motion abnormalities. -Mild to moderate RVE with mildly to moderately reduced systolic function. -Trace MR, mild to moderate TR, mild to moderate PI, mild AI. -Moderate to severe pulmonary hypertension and estimated between 57 and 62 mmHg. -No prior studies for comparison. Past Medical History Cardiac Medical History: Reports: Myocardial Infarction - 1998, Hyperlipidema, Other - AAA Denies: Coronary Artery Disease, Hypertension - LOW BP Pulmonary Medical History: Reports: Asthma, Chronic Obstructive Pulmonary Disease (COPD) - 8L O2 Denies: Bronchitis, Pneumonia Neurological Medical History: Denies: Seizures Endocrine Medical History: Reports: Hypothyroidism Renal/ Medical History: Reports: Chronic Kidney Disease, Other - BPH Malignancy Medical History: Reports: Skin Cancer Musculoskeltal Medical History: Reports: Arthritis, Other - Lumbar disc disease Psychiatric Medical History: Denies: Alcohol Dependency, Depression, Tobacco Dependency Hematology: Denies: Anemia Past Surgical History Past Surgical History: Reports: Cardiac Catheterization, Herniorrhaphy, Orthopedic Surgery - left thumb, Tonsillectomy, Vascular Surgery - AAA repair, Other - skin cancer, constipation Social History Lives with: Alone Smoking Status: Former Smoker Electronic Cigarette use?: No Number of Years Smokin Last Time Smoked: 2009 Frequency of Alcohol Use: None Hx Recreational Drug Use: No Drugs: None Hx Prescription Drug Abuse: No Family History Family History: Reviewed & Not Pertinent Parental Family History Reviewed: Yes Children Family History Reviewed: Yes Sibling(s) Family History Reviewed.: Yes Medication/Allergy Home Medications: Patient Own Medication List .SEE COMMENTS MDD START WITH LABEL COMMENTS 03/09/20 Buprenorphine [Butrans] 1 patch TOP .QWEEKLY 03/09/20 Allergies/Adverse Reactions: egg [Egg] Allergy (Verified 03/09/20 12:00) Influenza TV-S 07-01 Vaccine [From Fluarix [id number] (PF)] Allergy (Verified 03/09/20 12:00) Physical Exam Vital Signs: Temp Pulse Resp BP Pulse Ox 97.6 F 63 16 109/50 L 92 03/10/20 02:00 03/10/20 02:37 03/10/20 02:37 03/10/20 02:00 03/10/20 06:12 Intake & Output 03/09/20 03/10/20 03/11/20 06:59 06:59 06:59 Output Total 1000 Balance -1000 Weight 97.7 kg Results Laboratory Results: 03/10/20 05:06 03/10/20 05:06 03/09/20 03/09/20 03/09/20 11:45 11:45 13:00 WBC 6.6 RBC 2.14 L Hgb 8.6 L Hct 24.6 L MCV 115 H MCH 40.1 H MCHC 35.0 RDW 15.2 H Plt Count 124 L Seg Neutrophils % 75.9 Retic Count (auto) Sodium 135.0 L Potassium 4.1 Chloride 96 L Carbon Dioxide 28 Anion Gap 11 BUN 18 Creatinine 1.46 H Est GFR ( Amer) 57 L Glucose 140 H Calcium 8.8 Magnesium Iron TIBC % Saturation Ferritin Total Bilirubin 1.5 H AST 27 Alkaline Phosphatase 67 Total Protein 8.3 H Albumin 4.8 Triglycerides Cholesterol LDL Cholesterol Direct VLDL Cholesterol HDL Cholesterol Vitamin B12 TSH Urine Color YELLOW Urine Appearance CLEAR Urine pH 5.0 Ur Specific [place] 1.018 Urine Protein NEGATIVE Urine Glucose (UA) NEGATIVE Urine Ketones NEGATIVE Urine Blood NEGATIVE Urine Nitrite NEGATIVE Ur Leukocyte Esterase NEGATIVE Urine WBC (Auto) 1 Urine RBC (Auto) 0 03/10/20 03/10/20 03/10/20 05:06 05:06 05:06 WBC 4.9 RBC 1.80 L Hgb 7.5 L Hct 20.2 L MCV 113 H MCH 41.5 H MCHC 36.9 H RDW 14.9 H Plt Count 91 L Seg Neutrophils % 81.0 H Retic Count (auto) 2.29 Sodium 134.1 L Potassium 3.9 Chloride 96 L Carbon Dioxide 32 H Anion Gap 6 BUN 15 Creatinine 1.33 H Est GFR ( Amer) > 60 Glucose 96 Calcium 8.8 Magnesium 2.1 Iron 88.9 TIBC 300 % Saturation 30 Ferritin 192.00 Total Bilirubin AST Alkaline Phosphatase Total Protein Albumin Triglycerides 115 Cholesterol 206.80 H LDL Cholesterol Direct 136 H VLDL Cholesterol 23.0 HDL Cholesterol 56 Vitamin B12 771.0 TSH 49.30 H Urine Color Urine Appearance Urine pH Ur Specific [place] Urine Protein Urine Glucose (UA) Urine Ketones Urine Blood Urine Nitrite Ur Leukocyte Esterase Urine WBC (Auto) Urine RBC (Auto) 03/09/20 03/09/20 03/10/20 11:45 11:45 05:06 Creatine Kinase 200 H CK-MB (CK-2) 8.77 H Troponin I < 0.012 NT-Pro-B Natriuret Pep 4220 H 3930 H Impressions: Chest X-Ray 03/09/20 12:00 IMPRESSION: Ill-defined left basilar opacities, possibly atelectasis or infec tion. Mild linear right infrahilar opacities, likely atelectasis. Chest CT 03/09/20 13:12 IMPRESSION: 1. Mild left basilar and lingular peripheral consolidation and gr ound-glass attenuation likely atelectatic change although infectious/inflammatory process not entirely excluded. 2. Significant three-vessel coronary atherosclerosis. Cardiomegaly. 3. Emphysema. 4. 8 mm right lower lobe ground-glass nodule. Follow-up as below. 03/10/20 05:06 03/10/20 05:06 MCV 113 fl (80-97) H 03/10/20 05:06 MCH 41.5 pg (27.0-33.4) H 03/10/20 05:06 MCHC 36.9 g/dL (32.0-36.0) H 03/10/20 05:06 RDW 14.9 % (11.5-14.0) H 03/10/20 05:06 Seg Neutrophils % 81.0 % (42-78) H 03/10/20 05:06 Retic Count (auto) 2.29 % (0.66-2.85) 03/10/20 05:06 Chloride 96 mmol/L (98-107) L 03/10/20 05:06 Carbon Dioxide 32 mmol/L (22-30) H 03/10/20 05:06 Anion Gap 6 (5-19) 03/10/20 05:06 Est GFR ( Amer) > 60 (>60) 03/10/20 05:06 Glucose 96 mg/dL (75-110) 03/10/20 05:06 Calcium 8.8 mg/dL (8.4-10.2) 03/10/20 05:06 Magnesium 2.1 mg/dL (1.6-2.3) 03/10/20 05:06 Iron 88.9 ug/dL (49-181) 03/10/20 05:06 TIBC 300 ug/dL (250-450) 03/10/20 05:06 % Saturation 30 % 03/10/20 05:06 Ferritin 192.00 ng/mL (17.9-464.0) 03/10/20 05:06 Total Bilirubin 1.5 mg/dL (0.2-1.3) H 03/09/20 11:45 AST 27 U/L (17-59) 03/09/20 11:45 Alkaline Phosphatase 67 U/L (38-126) 03/09/20 11:45 Total Protein 8.3 g/dL (6.3-8.2) H 03/09/20 11:45 Albumin 4.8 g/dL (3.5-5.0) 03/09/20 11:45 Triglycerides 115 mg/dL (<150) 03/10/20 05:06 Cholesterol 206.80 mg/dL (0-200) H 03/10/20 05:06 LDL Cholesterol Direct 136 mg/dL (<100) H 03/10/20 05:06 VLDL Cholesterol 23.0 mg/dL (10-31) 03/10/20 05:06 HDL Cholesterol 56 mg/dL (>40) 03/10/20 05:06 Vitamin B12 771.0 pg/mL (239-931) 03/10/20 05:06 TSH 49.30 uIU/mL (0.47-4.68) H 03/10/20 05:06 Urine Color YELLOW 03/09/20 13:00 Urine Appearance CLEAR 03/09/20 13:00 Urine pH 5.0 (5.0-9.0) 03/09/20 13:00 Ur Specific [place] 1.018 03/09/20 13:00 Urine Protein NEGATIVE mg/dL (NEGATIVE) 03/09/20 13:00 Urine Glucose (UA) NEGATIVE mg/dL (NEGATIVE) 03/09/20 13:00 Urine Ketones NEGATIVE mg/dL (NEGATIVE) 03/09/20 13:00 Urine Blood NEGATIVE (NEGATIVE) 03/09/20 13:00 Urine Nitrite NEGATIVE (NEGATIVE) 03/09/20 13:00 Ur Leukocyte Esterase NEGATIVE (NEGATIVE) 03/09/20 13:00 Urine WBC (Auto) 1 /HPF 03/09/20 13:00 Urine RBC (Auto) 0 /HPF 03/09/20 13:00 03/09/20 03/09/20 03/10/20 11:45 11:45 05:06 Creatine Kinase 200 H CK-MB (CK-2) 8.77 H Troponin I < 0.012 NT-Pro-B Natriuret Pep 4220 H 3930 H Current Medication List Generic Name Dose Route Start Last Admin Trade Name Freq PRN Reason Stop Dose Admin Acetaminophen 325 mg 03/09/20 17:43 Tylenol 325 Mg Tablet PO 04/08/20 17:42 Q4HP PRN FOR PAIN OR TEMP Al Hydrox/Mg Hydrox/Simethicone 30 ml 03/09/20 17:43 Maalox Plus Susp 30 Udcup PO 04/08/20 17:42 Q6HP PRN HEARTBURN Albuterol/Ipratropium 3 ml 03/09/20 20:00 03/10/20 02:35 Duoneb 3 Ml Ampul NEB 04/08/20 19:59 3 ml RTQ6 TRUNG Administration Aspirin 81 mg 03/09/20 22:00 03/09/20 22:36 Ecotrin 81 Mg Ec Tablet PO 04/08/20 21:59 81 mg QHS TRUNG Administration Budesonide 0.5 mg 03/09/20 20:00 03/09/20 20:12 Pulmicort Neb 0.5 Mg/2 Ml Ampul NEB 04/08/20 19:59 0.5 mg RTQ12 TRUNG Administration Carvedilol 6.25 mg 03/09/20 22:00 03/09/20 22:37 Coreg 6.25 Mg Tablet PO 04/08/20 21:59 Not Given Q12 TRUNG Fluticasone Propionate 1 spray 03/09/20 22:00 03/09/20 22:36 Flonase Nasal [place] 50 Mcg/[place] 16 Gm NASL 04/08/20 21:59 Not Given Q12 TRUNG Furosemide 20 mg 03/10/20 10:00 Lasix Inj/Pf 20 Mg/2 Ml Sdv IV 04/09/20 09:59 Q12 TRUNG Levalbuterol HCl 1.25 mg 03/09/20 17:43 Xopenex Neb 1.25 Mg/3 Ml Ampul NEB 04/08/20 17:42 RTQ3HP PRN SHORTNESS OF BREATH Levothyroxine Sodium 0.15 mg 03/10/20 06:00 03/10/20 06:24 Synthroid 0.15 Mg Tablet PO 04/09/20 05:59 0.15 mg Q6AM TRUNG Administration Magnesium Hydroxide 30 ml 03/09/20 17:43 Milk Of Magnesia 30 Ml Udcup PO 04/08/20 17:42 HSP PRN FOR CONSTIPATION Montelukast Sodium 10 mg 03/09/20 22:00 03/09/20 22:36 Singulair 10 Mg Tablet PO 04/08/20 21:59 10 mg QHS TRUNG Administration Pantoprazole Sodium 40 mg 03/10/20 06:00 03/10/20 06:[address] Tablet PO 04/09/20 05:59 40 mg Q6AM TRUNG Administration Patient Own Medication 1 patch 03/10/20 06:00 Buprenorphine [Butrans] TOP 04/09/20 05:59 .QWEEKLY TRUNG Promethazine HCl 12.5 mg 03/09/20 17:43 Phenergan Inj 25 Mg/1 Ml Vial IV 04/08/20 17:42 Q4HP PRN FOR NAUSEA/VOMITING Simvastatin 20 mg 03/09/20 22:00 03/09/20 22:36 Zocor 10 Mg Tablet PO 04/08/20 21:59 20 mg QHS TRUNG Administration Sodium Chloride 2.5 ml 03/09/20 22:00 03/10/20 06:22 Saline Flush 2.5 Ml Monoject Prefil Syrin IV 04/08/20 21:59 Not Given Q8 TRUNG Zolpidem Tartrate 10 mg 03/09/20 17:43 Ambien 5 Mg Tablet PO 03/16/20 17:42 HSP PRN SLEEP OR INSOMNIA Discontinued Medications Generic Name Dose Route Start Last Admin Trade Name Freq PRN Reason Stop Dose Admin Furosemide 10 mg 03/09/20 19:30 03/09/20 22:37 Lasix Inj/Pf 20 Mg/2 Ml Sdv IV 03/09/20 19:31 Not Given NOW ONE Furosemide 10 mg 03/09/20 22:30 03/09/20 22:36 Lasix Inj/Pf 20 Mg/2 Ml Sdv IV 03/09/20 22:31 10 mg NOW ONE Administration Assessment & Plan - Diagnosis (1) CHF (congestive heart failure) Qualifiers: Heart failure type: unspecified Heart failure chronicity: acute Qualified Code(s): I50.9 - Heart failure, unspecified Plan: Very pleasant 70-year-old male with heart failure with preserved ejection fraction and early cor pulmonale with pulmonary hypertension and mild to moderate right ventricular systolic failure which is complicated by his severe anemia. He is actually feeling quite well this morning and is laying on bed on his left side without any dyspnea or shortness of breath. He has lost 1 L of fluid since admission and his proBNP is slowly improving. Of note, the patient admits to a high sodium diet with frequent consumption of canned foods. Recommendations: -Consider blood transfusion. -Continue with current diuretic strategy with close attention to his blood pre ssure. -Restrict fluid intake to 1500 cc daily. -Low sodium diet, less than 1500 mg daily. -Strict intake and output. -Daily weights. (2) Anemia Qualifiers: Anemia type: unspecified type Qualified Code(s): D64.9 - Anemia, unspeci fied Plan: The patient was found to have severe anemia upon admission. Recommendations: -I will defer further management to his primary team.
[2020-03-10] MEDS: FUROSEMIDE INJ/PF 20 MG/2 ML SDV IV SCH ×2 (10:26→21:36)
[2020-03-10] MEDS: CARVEDILOL 6.25 MG TABLET PO SCH ×2 (10:26→21:27)
[2020-03-10] MEDS: FLUTICASONE NASAL SPRAY 50 MCG/SPRY 120 SPRAY/16 GM NASL SCH ×2 (10:28→21:36)
[2020-03-10] MEDS ORDERED: NORMAL SALINE 250 ML IV PRN ×2 (10:51)
[2020-03-10] MEDS ORDERED: LEVOTHYROXINE SODIUM INJ/PF 0.1 MG SDV IV ONE (10:54)
--- NOTE | 2020-03-10 10:54 | PDOC PROGRESS REPORT ---
Subjective Progress Note for:: 03/10/20 Subjective:: Patient is still feeling very tired. I did speak to Dr. Mojica. He was due for an office visit there today. She will order the laboratory studies while he is inpatient. We also discussed transfusion and she was in agreement. In addition it was discovered that his TSH was 45 and I explained this could be why he feels tired. Reason For Visit: CARDIOMEGALY,CONGESTIVE HEART FAILURE,ANEMIA Physical Exam Vital Signs: Temp Pulse Resp BP Pulse Ox 97.6 F 65 18 109/50 L 94 03/10/20 02:00 03/10/20 08:10 03/10/20 08:10 03/10/20 02:00 03/10/20 08:10 Intake & Output 03/09/20 03/10/20 03/11/20 06:59 06:59 06:59 Output Total 1000 Balance -1000 Weight 97.7 kg General appearance: PRESENT: no acute distress, cooperative, well-developed Head exam: PRESENT: atraumatic, normocephalic Eye exam: PRESENT: conjunctiva pale. ABSENT: scleral icterus Respiratory exam: PRESENT: clear to auscultation vickey, symmetrical, unlabored. ABSENT: rhonchi, tachypnea, wheezes Cardiovascular exam: PRESENT: RRR, +S1, +S2. ABSENT: diastolic murmur, irregular rhythm, systolic murmur GI/Abdominal exam: PRESENT: normal bowel sounds, soft. ABSENT: distended, guarding, tenderness Rectal exam: PRESENT: deferred Gentrourinary exam: ABSENT: indwelling catheter Extremities exam: PRESENT: pedal edema, other - Foul-smelling ulcerated area with discharge on the left wrist Neurological exam: PRESENT: alert, awake, oriented to person, oriented to place, oriented to time, oriented to situation, CN II-XII grossly intact Psychiatric exam: PRESENT: appropriate affect. ABSENT: agitated, anxious Focused psych exam: ABSENT: delusional, paranoid, restlessness Skin exam: PRESENT: abrasion - The Band-Aid or cerumen on the left wrist that there is a ulcerated foul-smelling soft area present. Results Laboratory Results: 03/10/20 05:06 03/10/20 05:06 03/09/20 03/09/20 03/09/20 11:45 11:45 13:00 WBC 6.6 RBC 2.14 L Hgb 8.6 L Hct 24.6 L MCV 115 H MCH 40.1 H MCHC 35.0 RDW 15.2 H Plt Count 124 L Seg Neutrophils % 75.9 Retic Count (auto) Sodium 135.0 L Potassium 4.1 Chloride 96 L Carbon Dioxide 28 Anion Gap 11 BUN 18 Creatinine 1.46 H Est GFR ( Amer) 57 L Glucose 140 H Calcium 8.8 Magnesium Iron TIBC % Saturation Transferrin Ferritin Total Bilirubin 1.5 H AST 27 Alkaline Phosphatase 67 Total Protein 8.3 H Albumin 4.8 Triglycerides Cholesterol LDL Cholesterol Direct VLDL Cholesterol HDL Cholesterol Vitamin B12 Folate TSH Urine Color YELLOW Urine Appearance CLEAR Urine pH 5.0 Ur Specific [place] 1.018 Urine Protein NEGATIVE Urine Glucose (UA) NEGATIVE Urine Ketones NEGATIVE Urine Blood NEGATIVE Urine Nitrite NEGATIVE Ur Leukocyte Esterase NEGATIVE Urine WBC (Auto) 1 Urine RBC (Auto) 0 03/10/20 03/10/20 03/10/20 05:06 05:06 05:06 WBC 4.9 RBC 1.80 L Hgb 7.5 L Hct 20.2 L MCV 113 H MCH 41.5 H MCHC 36.9 H RDW 14.9 H Plt Count 91 L Seg Neutrophils % 81.0 H Retic Count (auto) 2.29 Sodium 134.1 L Potassium 3.9 Chloride 96 L Carbon Dioxide 32 H Anion Gap 6 BUN 15 Creatinine 1.33 H Est GFR ( Amer) > 60 Glucose 96 Calcium 8.8 Magnesium 2.1 Iron 88.9 TIBC 300 % Saturation 30 Transferrin Ferritin 192.00 Total Bilirubin AST Alkaline Phosphatase Total Protein Albumin Triglycerides 115 Cholesterol 206.80 H LDL Cholesterol Direct 136 H VLDL Cholesterol 23.0 HDL Cholesterol 56 Vitamin B12 771.0 Folate 9.32 TSH 49.30 H Urine Color Urine Appearance Urine pH Ur Specific [place] Urine Protein Urine Glucose (UA) Urine Ketones Urine Blood Urine Nitrite Ur Leukocyte Esterase Urine WBC (Auto) Urine RBC (Auto) 03/10/20 05:06 WBC RBC Hgb Hct MCV MCH MCHC RDW Plt Count Seg Neutrophils % Retic Count (auto) Sodium Potassium Chloride Carbon Dioxide Anion Gap BUN Creatinine Est GFR ( Amer) Glucose Calcium Magnesium Iron TIBC % Saturation Transferrin 211.25 Ferritin Total Bilirubin AST Alkaline Phosphatase Total Protein Albumin Triglycerides Cholesterol LDL Cholesterol Direct VLDL Cholesterol HDL Cholesterol Vitamin B12 Folate TSH Urine Color Urine Appearance Urine pH Ur Specific [place] Urine Protein Urine Glucose (UA) Urine Ketones Urine Blood Urine Nitrite Ur Leukocyte Esterase Urine WBC (Auto) Urine RBC (Auto) 03/09/20 03/09/20 03/10/20 11:45 11:45 05:06 Creatine Kinase 200 H CK-MB (CK-2) 8.77 H Troponin I < 0.012 NT-Pro-B Natriuret Pep 4220 H 3930 H Impressions: Chest X-Ray 03/09/20 12:00 IMPRESSION: Ill-defined left basilar opacities, possibly atelectasis or infection. Mild linear right infrahilar opacities, likely atelectasis. Chest CT 03/09/20 13:12 IMPRESSION: 1. Mild left basilar and lingular peripheral consolidation and ground-glass attenuation likely atelectatic change although infectious/inflammatory process not entirely excluded. 2. Significant three-vessel coronary atherosclerosis. Cardiomegaly. 3. Emphysema. 4. 8 mm right lower lobe ground-glass nodule. Follow-up as below. Assessment and Plan - Diagnosis (8) Abrasion of left hand Qualifiers: Encounter type: initial encounter Qualified Code(s): S60.512A - Abrasion of left hand, initial encounter Is this a current diagnosis for this admission?: Yes (9) Hypercholesterolemia Is this a current diagnosis for this admission?: Yes - Plan Summary Summary: 03/09/2020 The COPD exacerbation with acute on chronic respiratory failure will be treated with nebulizer therapy and supplemental oxygen. No evidence of infection therefore no antibiotics. The patient is suspected of having heart failure. There was cardiomegaly. An echocardiogram and cardiology consult have been ordered. He does have a history of coronary disease. His LDL is still above 100 and I will increase his simvastatin. His TSH was 45. While reviewing his anemia with hematology, a TSH level from there documentation revealed a TSH of 35 several months ago. I will increase his levothyroxine. His anemia is not new. He has been following with the marketing program manager. We will coordinate with Dr. Solorzano 03/10/2020 The patient is doing better. His oxygen demands are less and is breathing more comfortably. Continue with the same regimen. Echocardiogram did reveal that the patient has a normal systolic function. He has grade 1/4 diastolic dysfunction and he has moderate to severe pulmonary hypertension. Continue current regimen. Under the large Band-Aid on his left wrist there was a foul-smelling wound that likely started as an abrasion. We will clean it with soapy water and start with saline dressings. The patient does not have a white count or fever and so no systemic antibiotics yet. Levothyroxine was increased to 200 mg The patient's LDL was not at goal. His simvastatin was increased to 40 mg daily. His hemoglobin did drop to 7.5. I discussed this with hematology. She will be ordering tests that he would have gotten at his follow-up appointment today and these are to monitor his chronic anemia. I did order a transfusion of packed red blood cells. He should feel better with the transfusion. At the end of the visit the patient did bring up placement. He said that he wants to retain some independence but is worried about being alone. I suggested, and he has been looking into, assisted living. I called the piano case maker and I did ask her to provide information on the area facilities for the patient. - Time Time Spent with patient: 15-24 minutes Medications reviewed and adjusted accordingly: Yes Anticipated discharge: Home
[2020-03-10 11:25] LABS: PATH REVIEW PATHOLOGIST REVIEWED
[2020-03-10] MEDS: MONTELUKAST SODIUM 10 MG TABLET PO SCH (21:36)
[2020-03-10] MEDS: ASPIRIN 81 MG TABLET, ENT COATED PO SCH (21:36)
[2020-03-10] MEDS: SIMVASTATIN 10 MG TABLET PO SCH (21:36)
[2020-03-10] MEDS: SIMVASTATIN 40 MG TABLET PO SCH (22:07)
[2020-03-10 23:37] LABS: ABSOLUTE LYMPHOCYTES (AUTO) 0.9 10^3/uL (0.5-4.7); ABSOLUTE MONOCYTES (AUTO) 0.2 10^3/uL (0.1-1.4); ABSOLUTE NEUT (AUTO) 3.8 10^3/uL (1.7-8.2); BASOPHILS % (AUTO) 0.5 % (0-2); EOSINOPHILS % (AUTO) 0.3 % (0-6); LYMPHOCYTES % (AUTO) 18.6 % (13-45); MEAN CORPUSCULAR HEMOGLOBIN 36.9 pg (27.0-33.4); MEAN CORPUSCULAR HGB CONC 35.9 g/dL (32.0-36.0); MONOCYTES % (AUTO) 3.4 % (3-13); RED BLOOD COUNT 2.43 10^6/uL (4.35-5.55); RED CELL DISTRIBUTION WIDTH 22.4 % (11.5-14.0); SEGMENTED NEUTROPHILS % (AUTO) 77.2 % (42-78); TOTAL CELLS COUNTED % (AUTO) 100 %
[2020-03-11 00:13] LABS: MEAN CORPUSCULAR VOLUME 103 fl (80-97); PLATELET COUNT 85 10^3/uL (150-450)
[2020-03-11 00:14] LABS: ANISOCYTOSIS 3+
[2020-03-11 00:21] LABS: OVALOCYTES SLIGHT; PLATELET COMMENT DECREASED; POLYCHROMASIA SLIGHT
[2020-03-11] MEDS: IPRATROPIUM/ALBUTEROL 0.5-2.5 MG/3 ML AMPUL NEB SCH ×4 (02:29→20:39)
[2020-03-11] MEDS: LEVOTHYROXINE SODIUM 0.1 MG TABLET PO SCH (05:02)
[2020-03-11] MEDS: PANTOPRAZOLE SODIUM 40 MG TABLET.DR PO SCH (05:02)
[2020-03-11 05:39] LABS: ABSOLUTE LYMPHOCYTES (AUTO) 0.8 10^3/uL (0.5-4.7); ABSOLUTE MONOCYTES (AUTO) 0.2 10^3/uL (0.1-1.4); BASOPHILS % (AUTO) 0.7 % (0-2); EOSINOPHILS % (AUTO) 0.3 % (0-6); HEMATOCRIT 25.6 % (37.9-51.0); HEMOGLOBIN 9.2 g/dL (13.5-17.0); LYMPHOCYTES % (AUTO) 13.6 % (13-45); MEAN CORPUSCULAR HEMOGLOBIN 37.4 pg (27.0-33.4); MEAN CORPUSCULAR HGB CONC 36.1 g/dL (32.0-36.0); MEAN CORPUSCULAR VOLUME 103 fl (80-97); MONOCYTES % (AUTO) 2.7 % (3-13); RED BLOOD COUNT 2.48 10^6/uL (4.35-5.55); RED CELL DISTRIBUTION WIDTH 22.5 % (11.5-14.0); SEGMENTED NEUTROPHILS % (AUTO) 82.7 % (42-78); TOTAL CELLS COUNTED % (AUTO) 100 %
[2020-03-11 05:52] LABS: ANION GAP 9 (5-19); BLOOD UREA NITROGEN 16 mg/dL (7-20); CALCIUM 8.3 mg/dL (8.4-10.2); CARBON DIOXIDE 30 mmol/L (22-30); CHLORIDE 94 mmol/L (98-107); GLUCOSE 112 mg/dL (75-110)
[2020-03-11 05:57] LABS: PLATELET COUNT 85 10^3/uL (150-450)
[2020-03-11 05:59] LABS: ANISOCYTOSIS 3+; PLATELET COMMENT DECREASED
[2020-03-11 06:05] LABS: PLATELET LARGE PRESENT
[2020-03-11 06:06] LABS: POLYCHROMASIA SLIGHT
[2020-03-11] MEDS ORDERED: PROMETHAZINE HCL INJ 25 MG/1 ML VIAL IV PRN (08:00)
--- NOTE | 2020-03-11 08:15 | PDOC PROGRESS REPORT ---
Subjective Subjective:: IRAIS COBIAN is a 70 year old male with history of COPD on home oxygen, hypothyroidism, AAA, hyperlipidemia who was admitted to this facility on 03/09/2020 for shortness of breath and who is consulted to our service for further evaluation of possible heart failure. The patient feels slightly better this morning and specifically denies ischemic symptoms. He denies any history of coronary artery disease in the past. He does complain of lower extremity edema and weight gain at home. Upon further questioning, the patient admitted to a high sodium diet with frequent consumptions of canned foods among other high sodium items. 03/11/2020: The patient continues to feel well this morning and denies new cardiac comp laints. He is found laying flat on his left side and without PND, orthopnea, shortness of breath. He did receive 2 units of blood yesterday and his hemoglobin is now up to 9.2. His platelets are decreased at 85,000 for unclear reasons to me. He was consulted hematology/oncology and is now following with them. His statin was increased to 40 mg daily. His renal function remains at baseline and his blood pressure, although improved, continues to be on the low side. He did receive a significant amount of fluid yesterday due to his blood transfusion and his fluid balance as of this morning is only -795 cc. Physical exam on 03/11/2020: GENERAL: Pleasant and conversational. Oriented x3 with normal mood. Not in acute distress. Well groomed and well developed. HEENT: Normocephalic, atraumatic. Pupils equal. Sclerae anicteric. Oropharynx moist. NECK: No JVD. No carotid bruits. LUNGS: Clear to auscultation bilaterally. Normal respiratory effort without the use of accessory muscles or intercostal retractions. CARDIOVASCULAR: Regular rate and rhythm, normal S1 and S2 without murmurs, rubs, or gallops. PMI not displaced. EXTREMITIES: No edema, no cyanosis, no clubbing. +2 pulses femoral and pedal pulses bilaterally. SKIN: No lesions or rashes. MUSCULOSKELETAL: No chest tenderness to palpation. NEUROLOGIC: Nonfocal. No gross sensory or motor deficits bilateral upper or lower extremities. Cardiac studies: Echocardiogram on 03/09/2020: -LV is normal in size. -EF 60 to 65%. -Grade 1 diastolic dysfunction. -No gross regional wall motion abnormalities. -Mild to moderate RVE with mildly to moderately reduced systolic function. -Trace MR, mild to moderate TR, mild to moderate PI, mild AI. -Moderate to severe pulmonary hypertension and estimated between 57 and 62 mmHg. -No prior studies for comparison. Reason For Visit: CARDIOMEGALY,CONGESTIVE HEART FAILURE,ANEMIA Physical Exam Vital Signs: Temp Pulse Resp BP Pulse Ox 98.6 F 62 18 111/40 L 95 03/11/20 03:34 03/11/20 03:34 03/11/20 03:34 03/11/20 03:34 03/11/20 03:34 Intake & Output 03/10/20 03/11/20 03/12/20 06:59 06:59 06:59 Intake Total 2105 Output Total 1000 1900 Balance -1000 205 Weight 97.7 kg 97.5 kg Results Laboratory Results: 03/11/20 04:54 03/11/20 04:54 03/10/20 03/10/20 03/10/20 05:06 10:20 10:20 WBC RBC Hgb Hct MCV MCH MCHC RDW Plt Count Seg Neutrophils % Sodium Potassium Chloride Carbon Dioxide Anion Gap BUN Creatinine Est GFR ( Amer) Glucose Calcium Magnesium Transferrin 211.25 Total Protein Cancelled Albumin Cancelled Blood Type O POSITIVE Antibody Screen NEGATIVE 03/10/20 03/11/20 03/11/20 23:19 04:54 04:54 WBC 5.0 6.0 RBC 2.43 L 2.48 L Hgb 9.0 L 9.2 L Hct 25.0 L 25.6 L MCV 103 H D 103 H MCH 36.9 H 37.4 H MCHC 35.9 36.1 H RDW 22.4 H 22.5 H Plt Count 85 L 85 L Seg Neutrophils % 77.2 82.7 H Sodium 132.6 L Potassium 4.0 Chloride 94 L Carbon Dioxide 30 Anion Gap 9 BUN 16 Creatinine 1.33 H Est GFR ( Amer) > 60 Glucose 112 H Calcium 8.3 L Magnesium 1.8 Transferrin Total Protein Albumin Blood Type Antibody Screen 03/09/20 03/09/20 03/10/20 11:45 11:45 05:06 Creatine Kinase 200 H CK-MB (CK-2) 8.77 H Troponin I < 0.012 NT-Pro-B Natriuret Pep 4220 H 3930 H Impressions: Chest X-Ray 03/09/20 12:00 IMPRESSION: Ill-defined left basilar opacities, possibly atelectasis or infection. Mild linear right infrahilar opacities, likely atelectasis. Chest CT 03/09/20 13:12 IMPRESSION: 1. Mild left basilar and lingular peripheral consolidation and ground-glass attenuation likely atelectatic change although infectious/inflammatory process not entirely excluded. 2. Significant three-vessel coronary atherosclerosis. Cardiomegaly. 3. Emphysema. 4. 8 mm right lower lobe ground-glass nodule. Follow-up as below. 03/11/20 04:54 03/11/20 04:54 MCV 103 fl (80-97) H 03/11/20 04:54 MCH 37.4 pg (27.0-33.4) H 03/11/20 04:54 MCHC 36.1 g/dL (32.0-36.0) H 03/11/20 04:54 RDW 22.5 % (11.5-14.0) H 03/11/20 04:54 Seg Neutrophils % 82.7 % (42-78) H 03/11/20 04:54 Retic Count (auto) 2.29 % (0.66-2.85) 03/10/20 05:06 Chloride 94 mmol/L (98-107) L 03/11/20 04:54 Carbon Dioxide 30 mmol/L (22-30) 03/11/20 04:54 Anion Gap 9 (5-19) 03/11/20 04:54 Est GFR ( Amer) > 60 (>60) 03/11/20 04:54 Glucose 112 mg/dL (75-110) H 03/11/20 04:54 Calcium 8.3 mg/dL (8.4-10.2) L 03/11/20 04:54 Magnesium 1.8 mg/dL (1.6-2.3) 03/11/20 04:54 Iron 88.9 ug/dL (49-181) 03/10/20 05:06 TIBC 300 ug/dL (250-450) 03/10/20 05:06 % Saturation 30 % 03/10/20 05:06 Transferrin 211.25 mg/dL (206.00-381.00) 03/10/20 05:06 Ferritin 192.00 ng/mL (17.9-464.0) 03/10/20 05:06 Total Bilirubin 1.5 mg/dL (0.2-1.3) H 03/09/20 11:45 AST 27 U/L (17-59) 03/09/20 11:45 Alkaline Phosphatase 67 U/L (38-126) 03/09/20 11:45 Total Protein Cancelled 03/10/20 10:20 Albumin Cancelled 03/10/20 10:20 Triglycerides 115 mg/dL (<150) 03/10/20 05:06 Cholesterol 206.80 mg/dL (0-200) H 03/10/20 05:06 LDL Cholesterol Direct 136 mg/dL (<100) H 03/10/20 05:06 VLDL Cholesterol 23.0 mg/dL (10-31) 03/10/20 05:06 HDL Cholesterol 56 mg/dL (>40) 03/10/20 05:06 Vitamin B12 771.0 pg/mL (239-931) 03/10/20 05:06 Folate 9.32 ng/mL (>2.76) 03/10/20 05:06 TSH 49.30 uIU/mL (0.47-4.68) H 03/10/20 05:06 Urine Color YELLOW 03/09/20 13:00 Urine Appearance CLEAR 03/09/20 13:00 Urine pH 5.0 (5.0-9.0) 03/09/20 13:00 Ur Specific [place] 1.018 03/09/20 13:00 Urine Protein NEGATIVE mg/dL (NEGATIVE) 03/09/20 13:00 Urine Glucose (UA) NEGATIVE mg/dL (NEGATIVE) 03/09/20 13:00 Urine Ketones NEGATIVE mg/dL (NEGATIVE) 03/09/20 13:00 Urine Blood NEGATIVE (NEGATIVE) 03/09/20 13:00 Urine Nitrite NEGATIVE (NEGATIVE) 03/09/20 13:00 Ur Leukocyte Esterase NEGATIVE (NEGATIVE) 03/09/20 13:00 Urine WBC (Auto) 1 /HPF 03/09/20 13:00 Urine RBC (Auto) 0 /HPF 03/09/20 13:00 Blood Type O POSITIVE 03/10/20 10:20 Antibody Screen NEGATIVE 03/10/20 10:20 03/09/20 03/09/20 03/10/20 11:45 11:45 05:06 Creatine Kinase 200 H CK-MB (CK-2) 8.77 H Troponin I < 0.012 NT-Pro-B Natriuret Pep 4220 H 3930 H Current Medication List Generic Name Dose Route Start Last Admin Trade Name Freq PRN Reason Stop Dose Admin Acetaminophen 325 mg 03/09/20 17:43 Tylenol 325 Mg Tablet PO 04/08/20 17:42 Q4HP PRN FOR PAIN OR TEMP Al Hydrox/Mg Hydrox/Simethicone 30 ml 03/09/20 17:43 Maalox Plus Susp 30 Udcup PO 04/08/20 17:42 Q6HP PRN HEARTBURN Albuterol/Ipratropium 3 ml 03/09/20 20:00 03/11/20 02:29 Duoneb 3 Ml Ampul NEB 04/08/20 19:59 Not Given RTQ6 TRUNG Aspirin 81 mg 03/09/20 22:00 03/10/20 21:36 Ecotrin 81 Mg Ec Tablet PO 04/08/20 21:59 81 mg QHS TRUNG Administration Budesonide 0.5 mg 03/09/20 20:00 03/10/20 20:16 Pulmicort Neb 0.5 Mg/2 Ml Ampul NEB 04/08/20 19:59 0.5 mg RTQ12 TRUNG Administration Carvedilol 6.25 mg 03/09/20 22:00 03/10/20 21:27 Coreg 6.25 Mg Tablet PO 04/08/20 21:59 Not Given Q12 TRUNG Fluticasone Propionate 1 spray 03/09/20 22:00 03/10/20 21:36 Flonase Nasal [place] 50 Mcg/[place] 16 Gm NASL 04/08/20 21:59 Not Given Q12 TRUNG Furosemide 20 mg 03/11/20 10:00 Lasix Inj/Pf 20 Mg/2 Ml Sdv IV 04/10/20 09:59 DAILY TRUNG Sodium Chloride 250 mls @ 30 mls/hr 03/10/20 10:51 Nacl 0.9% 250 Ml Iv Soln IV 03/11/20 10:50 .DURING TRANSFUSION PRN THIS MED IS NOT "PRN" Sodium Chloride 250 mls @ 0 mls/hr 03/10/20 10:51 Nacl 0.9% 250 Ml Iv Soln IV 03/11/20 10:50 CONTINUOUS PRN AFTER EACH UNIT As Directed Levalbuterol HCl 1.25 mg 03/09/20 17:43 Xopenex Neb 1.25 Mg/3 Ml Ampul NEB 04/08/20 17:42 RTQ3HP PRN SHORTNESS OF BREATH Levothyroxine Sodium 0.2 mg 03/11/20 06:00 03/11/20 05:02 Synthroid 0.1 Mg Tablet PO 04/10/20 05:59 0.2 mg Q6AM TRUNG Administration Magnesium Hydroxide 30 ml 03/09/20 17:43 Milk Of Magnesia 30 Ml Udcup PO 04/08/20 17:42 HSP PRN FOR CONSTIPATION Montelukast Sodium 10 mg 03/09/20 22:00 03/10/20 21:36 Singulair 10 Mg Tablet PO 04/08/20 21:59 10 mg QHS TRUNG Administration Pantoprazole Sodium 40 mg 03/10/20 06:00 03/11/20 05:[address] Tablet PO 04/09/20 05:59 40 mg Q6AM TRUNG Administration Patient Own Medication 1 patch 03/10/20 06:00 Buprenorphine [Butrans] TOP 04/09/20 05:59 .QWEEKLY TRUNG Promethazine HCl 12.5 mg 03/11/20 08:00 Phenergan Inj 25 Mg/1 Ml Vial IV 04/08/20 17:42 Q4HP PRN FOR NAUSEA/VOMITING Simvastatin 40 mg 03/10/20 22:00 03/10/20 22:07 Zocor 40 Mg Tablet PO 04/09/20 21:59 Not Given QHS TRUNG Sodium Chloride 2.5 ml 03/09/20 22:00 03/11/20 05:03 Saline Flush 2.5 Ml Monoject Prefil Syrin IV 04/08/20 21:59 Not Given Q8 TRUNG Zolpidem Tartrate 10 mg 03/09/20 17:43 Ambien 5 Mg Tablet PO 03/16/20 17:42 HSP PRN SLEEP OR INSOMNIA Discontinued Medications Generic Name Dose Route Start Last Admin Trade Name Freq PRN Reason Stop Dose Admin Furosemide 10 mg 03/09/20 19:30 03/09/20 22:37 Lasix Inj/Pf 20 Mg/2 Ml Sdv IV 03/09/20 19:31 Not Given NOW ONE Furosemide 20 mg 03/10/20 10:00 03/10/20 21:36 Lasix Inj/Pf 20 Mg/2 Ml Sdv IV 04/09/20 09:59 20 mg Q12 TRUNG Administration Furosemide 10 mg 03/09/20 22:30 03/09/20 22:36 Lasix Inj/Pf 20 Mg/2 Ml Sdv IV 03/09/20 22:31 10 mg NOW ONE Administration Levothyroxine Sodium 0.15 mg 03/10/20 06:00 03/10/20 06:24 Synthroid 0.15 Mg Tablet PO 04/09/20 05:59 0.15 mg Q6AM TRUNG Administration Levothyroxine Sodium 0.1 mg 03/10/20 10:54 03/10/20 18:54 Synthroid Inj/Pf 0.1 Mg Sdv IV 03/10/20 10:55 Not Given NOW ONE Promethazine HCl 12.5 mg 03/09/20 17:43 Phenergan Inj 25 Mg/1 Ml Vial IV 04/08/20 17:42 Q4HP PRN FOR NAUSEA/VOMITING Simvastatin 20 mg 03/09/20 22:00 03/10/20 21:36 Zocor 10 Mg Tablet PO 04/08/20 21:59 20 mg QHS TRUNG Administration Assessment & Plan - Diagnosis (1) CHF (congestive heart failure) Qualifiers: Heart failure type: unspecified Heart failure chronicity: acute Qualified Code(s): I50.9 - Heart failure, unspecified Plan: The patient continues to be hemodynamically stable and had an uneventful night. He did receive a significant amount of fluid yesterday given his blood transfusion and his fluid balance is only -795 cc since admission. His diuresis has been compromised due to episodes of low blood pressure however it is now improved. At this point we need to get his extra fluid off therefore I will decrease his Coreg to 3.125 mg twice daily in order to attempt to prevent hypotension and will increase his Lasix IV to 20 mg twice daily. Recommendations: -Decrease Coreg to 3.125 mg twice daily. -Increase IV Lasix to 20 mg twice daily. -Restrict fluid intake to 1500 cc daily. -Low sodium diet, less than 1500 mg daily. -Strict intake and output. -Daily weights. -Daily BMP in pediatric tube. (2) Anemia Qualifiers: Anemia type: unspecified type Qualified Code(s): D64.9 - Anemia, unspecified Plan: The patient received units of blood yesterday with improvement in his hemoglobin to 9.2. His platelets are low at 85,000. Per hospitalist note, hematology/oncology has been consulted. Recommendations: -I will defer further management to his primary team.
[2020-03-11] MEDS: BUDESONIDE NEB 0.5 MG/2 ML AMPUL NEB SCH ×2 (08:53→20:39)
[2020-03-11] MEDS: FLUTICASONE NASAL SPRAY 50 MCG/SPRY 120 SPRAY/16 GM NASL SCH ×2 (09:40→21:34)
[2020-03-11] MEDS ORDERED: FUROSEMIDE INJ/PF 20 MG/2 ML SDV IV SCH ×2 (10:00)
[2020-03-11] MEDS ORDERED: CARVEDILOL 6.25 MG TABLET PO SCH (10:00)
[2020-03-11] MEDS ORDERED: CARVEDILOL 3.125 MG TABLET PO SCH (10:00)
[2020-03-11] MEDS: FUROSEMIDE INJ/PF 20 MG/2 ML SDV IV SCH ×2 (10:07→21:33)
[2020-03-11] MEDS: CARVEDILOL 3.125 MG TABLET PO SCH ×2 (10:07→21:38)
[2020-03-11] MEDS ORDERED: VANCOMYCIN HCL 0 MG in DEXTROSE 5%-WATER 250 ML IV NR (11:45)
[2020-03-11 12:08] LABS: ARTERIAL BLOOD H2CO3 1.21 mmol/L (1.05-1.35); ARTERIAL BLOOD HCO3 32.5 mmol/L (20-24); ARTERIAL BLOOD O2 SATURATION 85.2 % (94-98); ARTERIAL BLOOD PCO2 40.2 mmHg (35-45); ARTERIAL BLOOD PH 7.53 (7.35-7.45); ARTERIAL BLOOD PO2 44.4 mmHg (80-100); ARTERIAL BLOOD TOTAL CO2 33.8 mmol/L (23-27)
[2020-03-11 12:09] LABS: ARTERIAL BLOOD FIO2 7L
[2020-03-11] MEDS: VANCOMYCIN HCL 1,000 MG in DEXTROSE 5%-WATER 250 ML IV SCH (13:52)
[2020-03-11 16:37] LABS: A/G RATIO. 1.2 (0.7-1.7); ALBUMIN 3 3.2 g/dL (2.9-4.4); ALPHA-1-GLOBULIN 0.2 g/dL (0.0-0.4); BETA GLOBULIN 0.6 g/dL (0.7-1.3); FREE KAPPA LIGHT CHAINS 64.5 mg/L (3.3-19.4); FREE LAMBDA LIGHT CHAINS 28.2 mg/L (5.7-26.3); GAMMA GLOBULINS 1.3 g/dL (0.4-1.8); IMMUNOGLOBULIN A 206 mg/dL (61-437); IMMUNOGLOBULIN G 852 mg/dL (603-1613); MONOCLONAL-SPIKE 0.3 g/dL (Not Observ); PROTEIN TOTAL SERUM 6.1 g/dL (6.0-8.5)
--- NOTE | 2020-03-11 18:16 | PDOC PROGRESS REPORT ---
Subjective Progress Note for:: 03/11/20 Subjective:: No adverse events overnight. He is on 6 L of oxygen here, he says he is on 8 L of oxygen at home. His saturations have been anywhere from 85 to 97%. He feels fine and never appears symptomatic. We got an ABG on 6 L and he was asymptomatic in the blood gas said his SPO2 was 85%. Reason For Visit: CARDIOMEGALY,CONGESTIVE HEART FAILURE,ANEMIA Physical Exam Vital Signs: Temp Pulse Resp BP Pulse Ox 98.2 F 79 20 118/63 86 L 03/11/20 16:07 03/11/20 16:07 03/11/20 16:07 03/11/20 16:07 03/11/20 16:07 Intake & Output 03/10/20 03/11/20 03/12/20 06:59 06:59 06:59 Intake Total 2105 370 Output Total 1000 1900 200 Balance -1000 205 170 Weight 97.7 kg 97.5 kg General appearance: PRESENT: no acute distress, cooperative, disheveled, obese Respiratory exam: PRESENT: decreased breath sounds, symmetrical, unlabored. ABSENT: accessory muscle use, prolonged expiratory phas, rales, rhonchi, tachypnea, wheezes Cardiovascular exam: PRESENT: RRR, +S1, +S2 Pulses: PRESENT: normal carotid pulses Vascular exam: PRESENT: normal capillary refill GI/Abdominal exam: PRESENT: normal bowel sounds, soft. ABSENT: distended, guarding, rebound, tenderness Extremities exam: PRESENT: pedal edema Musculoskeletal exam: PRESENT: normal inspection. ABSENT: deformity Neurological exam: PRESENT: alert, awake, oriented to person, oriented to place, oriented to situation Psychiatric exam: PRESENT: appropriate affect, normal mood Skin exam: PRESENT: other - There is an ulcerated area over the on his left hand with a foul odor and some surrounding erythema Results Laboratory Results: 03/11/20 04:54 03/11/20 04:54 03/10/20 03/10/20 03/11/20 10:20 23:19 04:54 WBC 5.0 6.0 RBC 2.43 L 2.48 L Hgb 9.0 L 9.2 L Hct 25.0 L 25.6 L MCV 103 H D 103 H MCH 36.9 H 37.4 H MCHC 35.9 36.1 H RDW 22.4 H 22.5 H Plt Count 85 L 85 L Seg Neutrophils % 77.2 82.7 H Carbonic Acid HCO3/H2CO3 Ratio ABG pH ABG pCO2 ABG pO2 ABG HCO3 ABG O2 Saturation ABG Base Excess FiO2 Sodium Potassium Chloride Carbon Dioxide Anion Gap BUN Creatinine Est GFR ( Amer) Glucose Calcium Magnesium Blood Type O POSITIVE Antibody Screen NEGATIVE 03/11/20 03/11/20 04:54 11:54 WBC RBC Hgb Hct MCV MCH MCHC RDW Plt Count Seg Neutrophils % Carbonic Acid 1.21 HCO3/H2CO3 Ratio 26:1 ABG pH 7.53 H ABG pCO2 40.2 ABG pO2 44.4 L ABG HCO3 32.5 H ABG O2 Saturation 85.2 L ABG Base Excess 9.0 FiO2 7L Sodium 132.6 L Potassium 4.0 Chloride 94 L Carbon Dioxide 30 Anion Gap 9 BUN 16 Creatinine 1.33 H Est GFR ( Amer) > 60 Glucose 112 H Calcium 8.3 L Magnesium 1.8 Blood Type Antibody Screen 03/09/20 03/09/20 03/10/20 11:45 11:45 05:06 Creatine Kinase 200 H CK-MB (CK-2) 8.77 H Troponin I < 0.012 NT-Pro-B Natriuret Pep 4220 H 3930 H Impressions: Chest X-Ray 03/09/20 12:00 IMPRESSION: Ill-defined left basilar opacities, possibly atelectasis or infection. Mild linear right infrahilar opacities, likely atelectasis. Chest CT 03/09/20 13:12 IMPRESSION: 1. Mild left basilar and lingular peripheral consolidation and ground-glass attenuation likely atelectatic change although infectious/inflammatory process not entirely excluded. 2. Significant three-vessel coronary atherosclerosis. Cardiomegaly. 3. Emphysema. 4. 8 mm right lower lobe ground-glass nodule. Follow-up as below. Assessment and Plan - Diagnosis (1) Cor pulmonale, chronic Is this a current diagnosis for this admission?: Yes Plan: He has longstanding end-stage COPD with pulmonary hypertension which has resulted in a dilated right ventricle and reduced right ventricular systolic function. Supportive care. (2) Abrasion of left hand Qualifiers: Encounter type: initial encounter Qualified Code(s): S60.512A - Abrasion of left hand, initial encounter Is this a current diagnosis for this admission?: Yes Plan: Wound care has been to see him, but he said this was the main reason he came to the hospital. Had a foul smell to it, so I empirically started him on some antibiotics. We will continue to have him follow-up with the wound care center. (3) Acute and chronic respiratory failure with hypoxia Is this a current diagnosis for this admission?: Yes Plan: We had increased his oxygen today. We may have to increase it some more and get him on a high flow nasal cannula or Ventimask. (4) Acute exacerbation of chronic obstructive pulmonary disease Is this a current diagnosis for this admission?: Yes Plan: Resolved. No evidence of wheezing or dyspnea. (5) CHF (congestive heart failure) Qualifiers: Heart failure type: diastolic Heart failure chronicity: acute on chronic Qualified Code(s): I50.33 - Acute on chronic diastolic (congestive) heart failure Is this a current diagnosis for this admission?: Yes Plan: Diuresis and medical optimization per cardiology. Fluid restriction. Strict ins and outs. (6) Coronary artery disease Qualifiers: Coronary Disease-Associated Artery/Lesion type: [place] artery [place] vs. transplanted heart: [place] heart Associated angina: without angina Qualified Code(s): I25.10 - Atherosclerotic heart disease of [place] coronary artery without angina pectoris Is this a current diagnosis for this admission?: Yes (7) Pulmonary hypertension Is this a current diagnosis for this admission?: Yes - Plan Summary Summary: 03/09/2020 The COPD exacerbation with acute on chronic respiratory failure will be treated with nebulizer therapy and supplemental oxygen. No evidence of infection therefore no antibiotics. The patient is suspected of having heart failure. There was cardiomegaly. An echocardiogram and cardiology consult have been ordered. He does have a history of coronary disease. His LDL is still above 100 and I will increase his simvastatin. His TSH was 45. While reviewing his anemia with hematology, a TSH level from there documentation revealed a TSH of 35 several months ago. I will increase his levothyroxine. His anemia is not new. He has been following with the control technician. We will coordinate with Dr. Solorzano 03/10/2020 The patient is doing better. His oxygen demands are less and is breathing more comfortably. Continue with the same regimen. Echocardiogram did reveal that the patient has a normal systolic function. He has grade 1/4 diastolic dysfunction and he has moderate to severe pulmonary hypertension. Continue current regimen. Under the large Band-Aid on his left wrist there was a foul-smelling wound that likely started as an abrasion. We will clean it with soapy water and start with saline dressings. The patient does not have a white count or fever and so no systemic antibiotics yet. Levothyroxine was increased to 200 mg The patient's LDL was not at goal. His simvastatin was increased to 40 mg daily. His hemoglobin did drop to 7.5. I discussed this with hematology. She will be ordering tests that he would have gotten at his follow-up appointment today and these are to monitor his chronic anemia. I did order a transfusion of packed red blood cells. He should feel better with the transfusion. At the end of the visit the patient did bring up placement. He said that he wants to retain some independence but is worried about being alone. I suggested, and he has been looking into, assisted living. I called the [employer] and I did ask her to provide information on the area facilities for the patient. The echocardiogram showed severe pulmonary hypertension. Given the right heart failure and pulmonary hypertension the patient likely has cor pulmonale. Continue current treatment plan. - Time Time Spent with patient: 25-34 minutes
[2020-03-11] MEDS: MONTELUKAST SODIUM 10 MG TABLET PO SCH (21:31)
[2020-03-11] MEDS: ASPIRIN 81 MG TABLET, ENT COATED PO SCH (21:31)
[2020-03-11] MEDS: SIMVASTATIN 40 MG TABLET PO SCH (21:31)
[2020-03-12] MEDS: VANCOMYCIN HCL 1,000 MG in DEXTROSE 5%-WATER 250 ML IV SCH (00:55)
[2020-03-12] MEDS: IPRATROPIUM/ALBUTEROL 0.5-2.5 MG/3 ML AMPUL NEB SCH ×4 (01:35→20:01)
[2020-03-12 05:14] LABS: HEMOGLOBIN 10.1 g/dL (13.5-17.0); MEAN CORPUSCULAR HEMOGLOBIN 37.3 pg (27.0-33.4); MEAN CORPUSCULAR VOLUME 104 fl (80-97); WHITE BLOOD COUNT 10.5 10^3/uL (4.0-10.5)
[2020-03-12] MEDS: PANTOPRAZOLE SODIUM 40 MG TABLET.DR PO SCH (05:28)
[2020-03-12] MEDS: LEVOTHYROXINE SODIUM 0.1 MG TABLET PO SCH (05:28)
[2020-03-12 05:33] LABS: ANION GAP 11 (5-19); BLOOD UREA NITROGEN 22 mg/dL (7-20); CALCIUM 8.6 mg/dL (8.4-10.2); CARBON DIOXIDE 28 mmol/L (22-30); CHLORIDE 92 mmol/L (98-107); GLUCOSE 120 mg/dL (75-110); POTASSIUM 4.1 mmol/L (3.6-5.0)
[2020-03-12 05:53] LABS: PLATELET COUNT 85 10^3/uL (150-450)
[2020-03-12 05:57] LABS: ABSOLUTE LYMPHOCYTES# (MANUAL) 1.4 10^3/uL (0.5-4.7); ABSOLUTE MONOCYTES # (MANUAL) 0.2 10^3/uL (0.1-1.4); BAND NEUTROPHILS % (MANUAL) 1 % (3-5); BASOPHILS % (MANUAL) 0 % (0-2); EOSINOPHILS % (MANUAL) 0 % (0-6); LYMPHOCYTES % (MANUAL) 13 % (13-45); MONOCYTES % (MANUAL) 2 % (3-13); SEGMENTED NEUTROPHILS % (MAN) 84 % (42-78); TOTAL CELLS COUNTED 100
[2020-03-12 06:02] LABS: ANISOCYTOSIS 3+; PLATELET COMMENT DECREASED
[2020-03-12 06:04] LABS: PLATELET LARGE PRESENT
[2020-03-12 07:06] LABS: BETA-2 MICROGLOBULIN 3.2 mg/L (0.6-2.4)
[2020-03-12 07:07] LABS: IMMUNOGLOBULIN M 680 mg/dL (15-143); KAPPA LAMBDA RATIO 2.29 (0.26-1.65)
[2020-03-12] MEDS: BUDESONIDE NEB 0.5 MG/2 ML AMPUL NEB SCH ×2 (07:53→20:01)
--- NOTE | 2020-03-12 08:05 | PDOC PROGRESS REPORT ---
Subjective Progress Note for:: 03/12/20 Subjective:: IRAIS COBIAN is a 70 year old male with history of COPD on home oxygen, hypothyroidism, AAA, hyperlipidemia who was admitted to this facility on 03/09/2020 for shortness of breath and who is consulted to our service for further evaluation of possible heart failure. The patient feels slightly better this morning and specifically denies ischemic symptoms. He denies any history of coronary artery disease in the past. He does complain of lower extremity edema and weight gain at home. Upon further questioning, the patient admitted to a high sodium diet with frequent consumptions of canned foods among other high sodium items. 03/12/2020: The patient continues to feel well this morning and denies new cardiac complaints. He is found laying flat on his left side and without PND, orthopnea, shortness of breath. His platelets continue to be low at 85,000 for unclear reasons to me. His blood pressure has been very tenuous therefore he has not received any more Lasix or Coreg. He did have a small amount of urine in his urinal this morning which looked dark. Physical exam on 03/12/2020: GENERAL: Pleasant and conversational. Oriented x3 with normal mood. Not in acute distress. Well groomed and well developed. HEENT: Normocephalic, atraumatic. Pupils equal. Sclerae anicteric. Oropharynx moist. NECK: No JVD. No carotid bruits. LUNGS: Clear to auscultation bilaterally. Normal respiratory effort without the use of accessory muscles or intercostal retractions. CARDIOVASCULAR: Regular rate and rhythm, normal S1 and S2 without murmurs, rubs, or gallops. PMI not displaced. EXTREMITIES: No edema, no cyanosis, no clubbing. +2 pulses femoral and pedal pulses bilaterally. SKIN: No lesions or rashes. MUSCULOSKELETAL: No chest tenderness to palpation. NEUROLOGIC: Nonfocal. No gross sensory or motor deficits bilateral upper or lo wer extremities. Cardiac studies: Echocardiogram on 03/09/2020: -LV is normal in size. -EF 60 to 65%. -Grade 1 diastolic dysfunction. -No gross regional wall motion abnormalities. -Mild to moderate RVE with mildly to moderately reduced systolic function. -Trace MR, mild to moderate TR, mild to moderate PI, mild AI. -Moderate to severe pulmonary hypertension and estimated between 57 and 62 mmHg. -No prior studies for comparison. Reason For Visit: CARDIOMEGALY,CONGESTIVE HEART FAILURE,ANEMIA Physical Exam Vital Signs: Temp Pulse Resp BP Pulse Ox 97.9 F 81 20 84/40 L 93 03/12/20 01:05 03/12/20 02:00 03/12/20 01:38 03/12/20 01:05 03/12/20 01:38 Intake & Output 03/11/20 03/12/20 03/13/20 06:59 06:59 06:59 Intake Total 2105 1100 Output Total 1900 250 Balance 205 850 Weight 97.5 kg Results Laboratory Results: 03/12/20 04:43 03/12/20 04:43 03/10/20 03/11/20 03/12/20 10:20 11:54 04:43 WBC 10.5 RBC 2.70 L Hgb 10.1 L Hct 28.0 L MCV 104 H MCH 37.3 H MCHC 36.0 RDW 22.0 H Plt Count 85 L Seg Neutrophils % Not Reportable Carbonic Acid 1.21 HCO3/H2CO3 Ratio 26:1 ABG pH 7.53 H ABG pCO2 40.2 ABG pO2 44.4 L ABG HCO3 32.5 H ABG O2 Saturation 85.2 L ABG Base Excess 9.0 FiO2 7L Sodium Potassium Chloride Carbon Dioxide Anion Gap BUN Creatinine Est GFR ( Amer) Glucose Calcium Magnesium Total Protein 6.1 03/12/20 04:43 WBC RBC Hgb Hct MCV MCH MCHC RDW Plt Count Seg Neutrophils % Carbonic Acid HCO3/H2CO3 Ratio ABG pH ABG pCO2 ABG pO2 ABG HCO3 ABG O2 Saturation ABG Base Excess FiO2 Sodium 131.0 L Potassium 4.1 Chloride 92 L Carbon Dioxide 28 Anion Gap 11 BUN 22 H Creatinine 1.62 H Est GFR ( Amer) 51 L Glucose 120 H Calcium 8.6 Magnesium 1.8 Total Protein 03/09/20 03/09/20 03/10/20 11:45 11:45 05:06 Creatine Kinase 200 H CK-MB (CK-2) 8.77 H Troponin I < 0.012 NT-Pro-B Natriuret Pep 4220 H 3930 H Impressions: Chest X-Ray 03/09/20 12:00 IMPRESSION: Ill-defined left basilar opacities, possibly atelectasis or infection. Mild linear right infrahilar opacities, likely atelectasis. Chest CT 03/09/20 13:12 IMPRESSION: 1. Mild left basilar and lingular peripheral consolidation and ground-glass attenuation likely atelectatic change although infectious/inflammatory process not entirely excluded. 2. Significant three-vessel coronary atherosclerosis. Cardiomegaly. 3. Emphysema. 4. 8 mm right lower lobe ground-glass nodule. Follow-up as below. 03/12/20 04:43 03/12/20 04:43 MCV 104 fl (80-97) H 03/12/20 04:43 MCH 37.3 pg (27.0-33.4) H 03/12/20 04:43 MCHC 36.0 g/dL (32.0-36.0) 03/12/20 04:43 RDW 22.0 % (11.5-14.0) H 03/12/20 04:43 Seg Neutrophils % Not Reportable 03/12/20 04:43 Retic Count (auto) 2.29 % (0.66-2.85) 03/10/20 05:06 Carbonic Acid 1.21 mmol/L (1.05-1.35) 03/11/20 11:54 HCO3/H2CO3 Ratio 26:1 03/11/20 11:54 ABG pH 7.53 (7.35-7.45) H 03/11/20 11:54 ABG pCO2 40.2 mmHg (35-45) 03/11/20 11:54 ABG pO2 44.4 mmHg (80-100) L 03/11/20 11:54 ABG HCO3 32.5 mmol/L (20-24) H 03/11/20 11:54 ABG O2 Saturation 85.2 % (94-98) L 03/11/20 11:54 ABG Base Excess 9.0 mmol/L 03/11/20 11:54 FiO2 7L 03/11/20 11:54 Chloride 92 mmol/L (98-107) L 03/12/20 04:43 Carbon Dioxide 28 mmol/L (22-30) 03/12/20 04:43 Anion Gap 11 (5-19) 03/12/20 04:43 Est GFR ( Amer) 51 (>60) L 03/12/20 04:43 Glucose 120 mg/dL (75-110) H 03/12/20 04:43 Calcium 8.6 mg/dL (8.4-10.2) 03/12/20 04:43 Magnesium 1.8 mg/dL (1.6-2.3) 03/12/20 04:43 Iron 88.9 ug/dL (49-181) 03/10/20 05:06 TIBC 300 ug/dL (250-450) 03/10/20 05:06 % Saturation 30 % 03/10/20 05:06 Transferrin 211.25 mg/dL (206.00-381.00) 03/10/20 05:06 Ferritin 192.00 ng/mL (17.9-464.0) 03/10/20 05:06 Total Bilirubin 1.5 mg/dL (0.2-1.3) H 03/09/20 11:45 AST 27 U/L (17-59) 03/09/20 11:45 Alkaline Phosphatase 67 U/L (38-126) 03/09/20 11:45 Total Protein 6.1 g/dL (6.0-8.5) 03/10/20 10:20 Total Protein Cancelled 03/10/20 10:20 Albumin Cancelled 03/10/20 10:20 Triglycerides 115 mg/dL (<150) 03/10/20 05:06 Cholesterol 206.80 mg/dL (0-200) H 03/10/20 05:06 LDL Cholesterol Direct 136 mg/dL (<100) H 03/10/20 05:06 VLDL Cholesterol 23.0 mg/dL (10-31) 03/10/20 05:06 HDL Cholesterol 56 mg/dL (>40) 03/10/20 05:06 Vitamin B12 771.0 pg/mL (239-931) 03/10/20 05:06 Folate 9.32 ng/mL (>2.76) 03/10/20 05:06 TSH 49.30 uIU/mL (0.47-4.68) H 03/10/20 05:06 Urine Color YELLOW 03/09/20 13:00 Urine Appearance CLEAR 03/09/20 13:00 Urine pH 5.0 (5.0-9.0) 03/09/20 13:00 Ur Specific [place] 1.018 03/09/20 13:00 Urine Protein NEGATIVE mg/dL (NEGATIVE) 03/09/20 13:00 Urine Glucose (UA) NEGATIVE mg/dL (NEGATIVE) 03/09/20 13:00 Urine Ketones NEGATIVE mg/dL (NEGATIVE) 03/09/20 13:00 Urine Blood NEGATIVE (NEGATIVE) 03/09/20 13:00 Urine Nitrite NEGATIVE (NEGATIVE) 03/09/20 13:00 Ur Leukocyte Esterase NEGATIVE (NEGATIVE) 03/09/20 13:00 Urine WBC (Auto) 1 /HPF 03/09/20 13:00 Urine RBC (Auto) 0 /HPF 03/09/20 13:00 Blood Type O POSITIVE 03/10/20 10:20 Antibody Screen NEGATIVE 03/10/20 10:20 03/09/20 03/09/20 03/10/20 11:45 11:45 05:06 Creatine Kinase 200 H CK-MB (CK-2) 8.77 H Troponin I < 0.012 NT-Pro-B Natriuret Pep 4220 H 3930 H Current Medication List Generic Name Dose Route Start Last Admin Trade Name Freq PRN Reason Stop Dose Admin Acetaminophen 325 mg 03/09/20 17:43 Tylenol 325 Mg Tablet PO 04/08/20 17:42 Q4HP PRN FOR PAIN OR TEMP Al Hydrox/Mg Hydrox/Simethicone 30 ml 03/09/20 17:43 Maalox Plus Susp 30 Udcup PO 04/08/20 17:42 Q6HP PRN HEARTBURN Albuterol/Ipratropium 3 ml 03/09/20 20:00 03/12/20 01:35 Duoneb 3 Ml Ampul NEB 04/08/20 19:59 3 ml RTQ6 TRUNG Administration Aspirin 81 mg 03/09/20 22:00 03/11/20 21:31 Ecotrin 81 Mg Ec Tablet PO 04/08/20 21:59 81 mg QHS TRUNG Administration Budesonide 0.5 mg 03/09/20 20:00 03/11/20 20:39 Pulmicort Neb 0.5 Mg/2 Ml Ampul NEB 04/08/20 19:59 0.5 mg RTQ12 TRUNG Administration Carvedilol 3.125 mg 03/11/20 10:00 03/11/20 21:38 Coreg 3.125 Mg Tablet PO 04/10/20 09:59 Not Given Q12 TRUNG Fluticasone Propionate 1 spray 03/09/20 22:00 03/11/20 21:34 Flonase Nasal Clarence 50 Mcg/Clarence 16 Gm NASL 04/08/20 21:59 1 spr Q12 TRUNG Administration Furosemide 20 mg 03/11/20 10:00 03/11/20 21:33 Lasix Inj/Pf 20 Mg/2 Ml Sdv IV 04/10/20 09:59 Not Given Q12 TRUNG Vancomycin HCl 1,000 mg/ 250 mls @ 166.667 mls/hr 03/11/20 13:00 03/12/20 02:25 Dextrose IV 03/18/20 12:59 Infused Q12@0100,1300 TRUNG Infusion Levalbuterol HCl 1.25 mg 03/09/20 17:43 Xopenex Neb 1.25 Mg/3 Ml Ampul NEB 04/08/20 17:42 RTQ3HP PRN SHORTNESS OF BREATH Levothyroxine Sodium 0.2 mg 03/11/20 06:00 03/12/20 05:28 Synthroid 0.1 Mg Tablet PO 04/10/20 05:59 0.2 mg Q6AM TRUNG Administration Magnesium Hydroxide 30 ml 03/09/20 17:43 Milk Of Magnesia 30 Ml Udcup PO 04/08/20 17:42 HSP PRN FOR CONSTIPATION Montelukast Sodium 10 mg 03/09/20 22:00 03/11/20 21:31 Singulair 10 Mg Tablet PO 04/08/20 21:59 10 mg QHS TRUNG Administration Pantoprazole Sodium 40 mg 03/10/20 06:00 03/12/20 05:[address] Tablet PO 04/09/20 05:59 40 mg Q6AM TRUNG Administration Patient Own Medication 1 patch 03/10/20 06:00 Buprenorphine [Butrans] TOP 04/09/20 05:59 .QWEEKLY TRUNG Promethazine HCl 12.5 mg 03/11/20 08:00 Phenergan Inj 25 Mg/1 Ml Vial IV 04/08/20 17:42 Q4HP PRN FOR NAUSEA/VOMITING Simvastatin 40 mg 03/10/20 22:00 03/11/20 21:31 Zocor 40 Mg Tablet PO 04/09/20 21:59 40 mg QHS TRUNG Administration Sodium Chloride 2.5 ml 03/09/20 22:00 03/12/20 05:33 Saline Flush 2.5 Ml Monoject Prefil Syrin IV 04/08/20 21:59 2.5 ml Q8 TRUNG Administration Zolpidem Tartrate 10 mg 03/09/20 17:43 Ambien 5 Mg Tablet PO 03/16/20 17:42 HSP PRN SLEEP OR INSOMNIA Discontinued Medications Generic Name Dose Route Start Last Admin Trade Name Freq PRN Reason Stop Dose Admin Carvedilol 6.25 mg 03/09/20 22:00 03/10/20 21:27 Coreg 6.25 Mg Tablet PO 04/08/20 21:59 Not Given Q12 TRUNG Carvedilol 3.125 mg 03/11/20 10:00 03/11/20 09:39 Coreg 3.125 Mg Tablet PO 04/10/20 09:59 Not Given Q12 TRUNG Furosemide 10 mg 03/09/20 19:30 03/09/20 22:37 Lasix Inj/Pf 20 Mg/2 Ml Sdv IV 03/09/20 19:31 Not Given NOW ONE Furosemide 20 mg 03/10/20 10:00 03/10/20 21:36 Lasix Inj/Pf 20 Mg/2 Ml Sdv IV 04/09/20 09:59 20 mg Q12 TRUNG Administration Furosemide 10 mg 03/09/20 22:30 03/09/20 22:36 Lasix Inj/Pf 20 Mg/2 Ml Sdv IV 03/09/20 22:31 10 mg NOW ONE Administration Furosemide 20 mg 03/11/20 10:00 Lasix Inj/Pf 20 Mg/2 Ml Sdv IV 04/10/20 09:59 DAILY TRUNG Furosemide 20 mg 03/11/20 10:00 03/11/20 09:40 Lasix Inj/Pf 20 Mg/2 Ml Sdv IV 04/10/20 09:59 Not Given Q12 TRUNG Sodium Chloride 250 mls @ 30 mls/hr 03/10/20 10:51 Nacl 0.9% 250 Ml Iv Soln IV 03/11/20 10:50 .DURING TRANSFUSION PRN THIS MED IS NOT "PRN" Sodium Chloride 250 mls @ 0 mls/hr 03/10/20 10:51 Nacl 0.9% 250 Ml Iv Soln IV 03/11/20 10:50 CONTINUOUS PRN AFTER EACH UNIT As Directed Levothyroxine Sodium 0.15 mg 03/10/20 06:00 03/10/20 06:24 Synthroid 0.15 Mg Tablet PO 04/09/20 05:59 0.15 mg Q6AM TRUNG Administration Levothyroxine Sodium 0.1 mg 03/10/20 10:54 03/10/20 18:54 Synthroid Inj/Pf 0.1 Mg Sdv IV 03/10/20 10:55 Not Given NOW ONE Promethazine HCl 12.5 mg 03/09/20 17:43 Phenergan Inj 25 Mg/1 Ml Vial IV 04/08/20 17:42 Q4HP PRN FOR NAUSEA/VOMITING Simvastatin 20 mg 03/09/20 22:00 03/10/20 21:36 Zocor 10 Mg Tablet PO 04/08/20 21:59 20 mg QHS TRUNG Administration Assessment & Plan - Diagnosis (1) CHF (congestive heart failure) Qualifiers: Heart failure type: diastolic Heart failure chronicity: acute on chronic Qualified Code(s): I50.33 - Acute on chronic diastolic (congestive) heart failure Is this a current diagnosis for this admission?: Yes Plan: At this point the patient does not appear to be fluid overloaded but slightly dehydrated. His oral mucosa today is slightly dry, he has no lower extremity edema, his lungs are clear and his urine looks dark in the setting of slightly increased creatinine from 1.33 to 1.62. His blood pressure has been very tenuous particularly when taken in the middle of the night however during the day is better. Given his very soft blood pressure, no evidence of clinical hea rt failure and slight worsening of his renal function we will temporarily stop carvedilol and Lasix and will liberalize p.o. intake. Recommendations: -Temporarily discontinue Coreg and Lasix. -Liberalize p.o. fluid intake. -Continue with low sodium diet, less than 1500 mg daily. -Strict intake and output. -Daily weights. -Daily BMP in pediatric tube. -Restart low-dose Coreg and p.o. Lasix 20 mg daily when blood pressure improved. -I will arrange for outpatient cardiology follow-up. -Cardiology will sign off the case for now. (2) Anemia Qualifiers: Anemia type: unspecified type Qualified Code(s): D64.9 - Anemia, unspecifi ed Plan: Hemoglobin is now stable. Recommendations: -I will defer further management to his primary team.
[2020-03-12] MEDS ORDERED: LINEZOLID 600 MG/300 ML RTUPB IV SCH (10:00)
[2020-03-12] MEDS: FLUTICASONE NASAL SPRAY 50 MCG/SPRY 120 SPRAY/16 GM NASL SCH ×2 (10:32→21:18)
--- NOTE | 2020-03-12 16:13 | PDOC PROGRESS REPORT ---
Subjective Progress Note for:: 03/12/20 Subjective:: No adverse events overnight. He remains asymptomatic, but continues to have low SPO2 on high amount of oxygen he is on at home, 8 L. We had to move him to [facility] today because we did not have a room available to him on the fourth floor that was equipped to handle a heated high flow nasal cannula. His blood pressures this morning were a little low so we have held his Coreg and his Lasix. We are encouraging him to take plenty of oral fluids. Overall he says he feels like he is doing pretty good and wants to know when he can go home. Reason For Visit: CARDIOMEGALY,CONGESTIVE HEART FAILURE,ANEMIA Physical Exam Vital Signs: Temp Pulse Resp BP Pulse Ox 98.9 F 88 80 H 83/41 L 92 03/12/20 08:38 03/12/20 14:04 03/12/20 14:04 03/12/20 08:38 03/12/20 14:04 Intake & Output 03/11/20 03/12/20 03/13/20 06:59 06:59 06:59 Intake Total 2105 1100 Output Total 1900 250 Balance 205 850 Weight 97.5 kg 97.5 kg General appearance: PRESENT: no acute distress, cooperative, disheveled, obese Respiratory exam: PRESENT: decreased breath sounds, symmetrical, unlabored. ABSENT: accessory muscle use, prolonged expiratory phas, rales, rhonchi, tachypnea, wheezes Cardiovascular exam: PRESENT: RRR, +S1, +S2 Pulses: PRESENT: normal carotid pulses Vascular exam: PRESENT: normal capillary refill GI/Abdominal exam: PRESENT: normal bowel sounds, soft. ABSENT: distended, guarding, rebound, tenderness Extremities exam: PRESENT: pedal edema Musculoskeletal exam: PRESENT: normal inspection. ABSENT: deformity Neurological exam: PRESENT: alert, awake, oriented to person, oriented to place, oriented to situation Psychiatric exam: PRESENT: appropriate affect, normal mood Skin exam: PRESENT: other - There is an ulcerated area over the on his left hand with diminished erythema Results Laboratory Results: 03/12/20 04:43 03/12/20 04:43 03/10/20 03/12/20 03/12/20 10:20 04:43 04:43 WBC 10.5 RBC 2.70 L Hgb 10.1 L Hct 28.0 L MCV 104 H MCH 37.3 H MCHC 36.0 RDW 22.0 H Plt Count 85 L Seg Neutrophils % Not Reportable Sodium 131.0 L Potassium 4.1 Chloride 92 L Carbon Dioxide 28 Anion Gap 11 BUN 22 H Creatinine 1.62 H Est GFR ( Amer) 51 L Glucose 120 H Calcium 8.6 Magnesium 1.8 Total Protein 6.1 03/10/20 17:15 Hand - Sore Gram Stain - Final 03/10/20 17:15 Hand - Sore Wound Culture - Final Staphylococcus Aureus 03/09/20 03/09/20 03/10/20 11:45 11:45 05:06 Creatine Kinase 200 H CK-MB (CK-2) 8.77 H Troponin I < 0.012 NT-Pro-B Natriuret Pep 4220 H 3930 H Impressions: Chest X-Ray 03/09/20 12:00 IMPRESSION: Ill-defined left basilar opacities, possibly atelectasis or infection. Mild linear right infrahilar opacities, likely atelectasis. Chest CT 03/09/20 13:12 IMPRESSION: 1. Mild left basilar and lingular peripheral consolidation and ground-glass attenuation likely atelectatic change although infectious/inflammatory process not entirely excluded. 2. Significant three-vessel coronary atherosclerosis. Cardiomegaly. 3. Emphysema. 4. 8 mm right lower lobe ground-glass nodule. Follow-up as below. Assessment and Plan - Diagnosis (1) Cor pulmonale, chronic Is this a current diagnosis for this admission?: Yes Plan: He has longstanding end-stage COPD with pulmonary hypertension which has resulted in a dilated right ventricle and reduced right ventricular systolic function. Supportive care. Try to maintain an SPO2 of at least 90%, ideally the target range for him is 88 to 92%. Fluid balance will be a challenge for him because we need to make sure he does not have too much preload but at the same time would not want him dehydrated and hypotensive. (2) Acute and chronic respiratory failure with hypoxia Is this a current diagnosis for this admission?: Yes Plan: We have had to bump him up to a heated high flow nasal cannula to keep his saturations up. He was completely asymptomatic when we had to make this change. He said he uses some sort of a device at home to help his breathing but he does not know what it is. He was supposed to see Dr. Serrano in follow-up because [place] and he was going to see with someone in the community, and he has had several appointments missed with Dr. Serrano, but has not seen him yet. (3) Acute exacerbation of chronic obstructive pulmonary disease Is this a current diagnosis for this admission?: Yes Plan: Resolved. No evidence of wheezing or dyspnea. (4) CHF (congestive heart failure) Qualifiers: Heart failure type: diastolic Heart failure chronicity: acute on chronic Qualified Code(s): I50.33 - Acute on chronic diastolic (congestive) heart failure Is this a current diagnosis for this admission?: Yes Plan: I think this is resolved. He does not appear to me to be someone who is volume overloaded at this time. In fact he appears a bit dry. His Lasix and Coreg are on hold for the time being. Dr. Mike recommended switching him to metoprolol when we can start a beta-aristeo back in case his blood pressure is still on the low side. (5) Coronary artery disease Qualifiers: Coronary Disease-Associated Artery/Lesion type: [place] artery [place] vs. transplanted heart: morongo heart Associated angina: without angina Qualified Code(s): I25.10 - Atherosclerotic heart disease of [place] coronary artery without angina pectoris Is this a current diagnosis for this admission?: Yes (6) Pulmonary hypertension Is this a current diagnosis for this admission?: Yes (7) Cellulitis of left hand Is this a current diagnosis for this admission?: Yes Plan: The wound grew out MSSA. I have switched him initially from vancomycin to Zyvox because he had some elevation in his creatinine, but once the culture came back I switched him off Zyvox to Keflex. - Plan Summary Summary: 03/09/2020 The COPD exacerbation with acute on chronic respiratory failure will be treated with nebulizer therapy and supplemental oxygen. No evidence of infection therefore no antibiotics. The patient is suspected of having heart failure. There was cardiomegaly. An echocardiogram and cardiology consult have been ordered. He does have a history of coronary disease. His LDL is still above 100 and I will increase his simvastatin. His TSH was 45. While reviewing his anemia with hematology, a TSH level from there documentation revealed a TSH of 35 several months ago. I will increase his levothyroxine. His anemia is not new. He has been following with the restaurant expeditor. We will coordinate with Dr. Solorzano 03/10/2020 The patient is doing better. His oxygen demands are less and is breathing more comfortably. Continue with the same regimen. Echocardiogram did reveal that the patient has a normal systolic function. He has grade 1/4 diastolic dysfunction and he has moderate to severe pulmonary hypertension. Continue current regimen. Under the large Band-Aid on his left wrist there was a foul-smelling wound that likely started as an abrasion. We will clean it with soapy water and start with saline dressings. The patient does not have a white count or fever and so no systemic antibiotics yet. Levothyroxine was increased to 200 mg The patient's LDL was not at goal. His simvastatin was increased to 40 mg daily. His hemoglobin did drop to 7.5. I discussed this with hematology. She will be ordering tests that he would have gotten at his follow-up appointment today and these are to monitor his chronic anemia. I did order a transfusion of packed red blood cells. He should feel better with the transfusion. At the end of the visit the patient did bring up placement. He said that he wants to retain some independence but is worried about being alone. I suggested, and he has been looking into, assisted living. I called the director of casework and I did ask her to provide information on the area facilities for the patient. The echocardiogram showed severe pulmonary hypertension. Given the right heart failure and pulmonary hypertension the patient likely has cor pulmonale. Continue current treatment plan. - Time Time Spent with patient: 25-34 minutes
[2020-03-12] MEDS: CEPHALEXIN 500 MG CAPSULE PO SCH ×2 (17:30→23:13)
[2020-03-12] MEDS: SIMVASTATIN 40 MG TABLET PO SCH (21:19)
[2020-03-12] MEDS: MONTELUKAST SODIUM 10 MG TABLET PO SCH (21:19)
[2020-03-12] MEDS: ASPIRIN 81 MG TABLET, ENT COATED PO SCH (21:19)
[2020-03-13] MEDS: IPRATROPIUM/ALBUTEROL 0.5-2.5 MG/3 ML AMPUL NEB SCH ×4 (02:01→20:11)
[2020-03-13] MEDS: CEPHALEXIN 500 MG CAPSULE PO SCH ×3 (05:27→17:50)
[2020-03-13] MEDS: LEVOTHYROXINE SODIUM 0.1 MG TABLET PO SCH (05:27)
[2020-03-13] MEDS: PANTOPRAZOLE SODIUM 40 MG TABLET.DR PO SCH (05:27)
[2020-03-13] MEDS: BUDESONIDE NEB 0.5 MG/2 ML AMPUL NEB SCH ×2 (09:31→20:11)
[2020-03-13] MEDS: NORMAL SALINE 1000 ML 1,000 ML IV PRN ×2 (09:50→19:37)
[2020-03-13] MEDS: FLUTICASONE NASAL SPRAY 50 MCG/SPRY 120 SPRAY/16 GM NASL SCH ×2 (09:54→21:18)
[2020-03-13 10:36] LABS: ANION GAP 9 (5-19); BLOOD UREA NITROGEN 36 mg/dL (7-20); CALCIUM 8.5 mg/dL (8.4-10.2); CARBON DIOXIDE 28 mmol/L (22-30); CHLORIDE 91 mmol/L (98-107); GLUCOSE 136 mg/dL (75-110); POTASSIUM 4.2 mmol/L (3.6-5.0)
[2020-03-13 10:42] LABS: HEMATOCRIT 27.7 % (37.9-51.0); HEMOGLOBIN 9.7 g/dL (13.5-17.0); MEAN CORPUSCULAR HEMOGLOBIN 36.7 pg (27.0-33.4); MEAN CORPUSCULAR VOLUME 105 fl (80-97); RED BLOOD COUNT 2.64 10^6/uL (4.35-5.55); RED CELL DISTRIBUTION WIDTH 21.5 % (11.5-14.0); WHITE BLOOD COUNT 15.9 10^3/uL (4.0-10.5)
[2020-03-13 11:21] LABS: PLATELET COUNT 77 10^3/uL (150-450)
--- NOTE | 2020-03-13 15:08 | PDOC PROGRESS REPORT ---
Subjective Progress Note for:: 03/13/20 Subjective:: No adverse events overnight. His oxygen levels have been still on the low side but stable on the high flow nasal cannula. Blood pressures have been a little bit low. We started a little bit of fluid on him today. He remains in good spirits. Reason For Visit: CARDIOMEGALY,CONGESTIVE HEART FAILURE,ANEMIA Physical Exam Vital Signs: Temp Pulse Resp BP Pulse Ox 98.1 F 85 18 92/46 L 90 L 03/13/20 12:03 03/13/20 14:12 03/13/20 14:12 03/13/20 13:23 03/13/20 14:12 Intake & Output 03/12/20 03/13/20 03/14/20 06:59 06:59 06:59 Intake Total 1100 720 340 Output Total 250 350 200 Balance 850 370 140 Weight 97.5 kg 104.9 kg General appearance: PRESENT: no acute distress, cooperative, disheveled, obese Respiratory exam: PRESENT: decreased breath sounds, symmetrical, unlabored. ABSENT: accessory muscle use, prolonged expiratory phas, rales, rhonchi, tachypnea, wheezes Cardiovascular exam: PRESENT: RRR, +S1, +S2 Pulses: PRESENT: normal carotid pulses Vascular exam: PRESENT: normal capillary refill GI/Abdominal exam: PRESENT: normal bowel sounds, soft. ABSENT: distended, guarding, rebound, tenderness Extremities exam: PRESENT: pedal edema Musculoskeletal exam: PRESENT: normal inspection. ABSENT: deformity Neurological exam: PRESENT: alert, awake, oriented to person, oriented to place, oriented to situation Psychiatric exam: PRESENT: appropriate affect, normal mood Skin exam: PRESENT: other - There is an ulcerated area over the on his left hand with diminished erythema Results Laboratory Results: 03/13/20 10:00 03/13/20 10:00 03/13/20 03/13/20 10:00 10:00 WBC 15.9 H RBC 2.64 L Hgb 9.7 L Hct 27.7 L MCV 105 H MCH 36.7 H MCHC 35.0 RDW 21.5 H Plt Count 77 L Sodium 128.3 L Potassium 4.2 Chloride 91 L Carbon Dioxide 28 Anion Gap 9 BUN 36 H Creatinine 1.72 H Est GFR ( Amer) 48 L Glucose 136 H Calcium 8.5 03/09/20 03/09/20 03/10/20 11:45 11:45 05:06 Creatine Kinase 200 H CK-MB (CK-2) 8.77 H Troponin I < 0.012 NT-Pro-B Natriuret Pep 4220 H 3930 H Impressions: Chest X-Ray 03/09/20 12:00 IMPRESSION: Ill-defined left basilar opacities, possibly atelectasis or infection. Mild linear right infrahilar opacities, likely atelectasis. Chest CT 03/09/20 13:12 IMPRESSION: 1. Mild left basilar and lingular peripheral consolidation and ground-glass attenuation likely atelectatic change although infectiou s/inflammatory process not entirely excluded. 2. Significant three-vessel coronary atherosclerosis. Cardiomegaly. 3. Emphysema. 4. 8 mm right lower lobe ground-glass nodule. Follow-up as below. Assessment and Plan - Diagnosis (1) Cor pulmonale, chronic Is this a current diagnosis for this admission?: Yes Plan: He has longstanding end-stage COPD with pulmonary hypertension which has resulted in a dilated right ventricle and reduced right ventricular systolic function. Supportive care. Try to maintain an SPO2 of at least 90%, ideally the target range for him is 88 to 92%. Fluid balance will be a challenge for him because we need to make sure he does not have too much preload but at the same time would not want him dehydrated and hypotensive. (2) Acute and chronic respiratory failure with hypoxia Is this a current diagnosis for this admission?: Yes Plan: We have had to bump him up to a heated high flow nasal cannula to keep his saturations up. He was completely asymptomatic when we had to make this change. He said he uses some sort of a device at home to help his breathing but he does not know what it is. He was supposed to see Dr. Serrano in follow-up because [place] and he was going to see with someone in the community, and he has had several appointments missed with Dr. Serrano, but has not seen him yet. (3) Acute exacerbation of chronic obstructive pulmonary disease Is this a current diagnosis for this admission?: Yes Plan: Resolved. No evidence of wheezing or dyspnea. (4) CHF (congestive heart failure) Qualifiers: Heart failure type: diastolic Heart failure chronicity: acute on chronic Qualified Code(s): I50.33 - Acute on chronic diastolic (congestive) heart marco pemberton Is this a current diagnosis for this admission?: Yes Plan: I think this is resolved. He does not appear to me to be someone who is volume overloaded at this time. In fact he appears a bit dry. His Lasix and Coreg are on hold for the time being. Dr. Mike recommended switching him to metoprolol when we can start a beta-aristeo back in case his blood pressure is still on the low side. (5) Coronary artery disease Qualifiers: Coronary Disease-Associated Artery/Lesion type: jamul artery [place] vs. transplanted heart: jamul heart Associated angina: without angina Qualified Code(s): I25.10 - Atherosclerotic heart disease of jamul coronary artery without angina pectoris Is this a current diagnosis for this admission?: Yes (6) Pulmonary hypertension Is this a current diagnosis for this admission?: Yes (7) Cellulitis of left hand Is this a current diagnosis for this admission?: Yes Plan: The wound grew out MSSA. I have switched him initially from vancomycin to Zyvox because he had some elevation in his creatinine, but once the culture came back I switched him off Zyvox to Keflex. (8) Nibmo-gx-wnokmej kidney injury Qualifiers: Acute renal failure type: unspecified Chronic kidney disease stage: stage 3 (moderate) Qualified Code(s): N17.9 - Acute kidney failure, unspecified; N18.3 - Chronic kidney disease, stage 3 (moderate) Is this a current diagnosis for this admission?: Yes Plan: I think this is prerenal azotemia. His creatinine when he came in was 1.33. I think that is pretty close to his baseline. He is up to 1.72. We started him on some cautious IV hydration. - Plan Summary Summary: 03/09/2020 The COPD exacerbation with acute on chronic respiratory failure will be treated with nebulizer therapy and supplemental oxygen. No evidence of infection therefore no antibiotics. The patient is suspected of having heart failure. There was cardiomegaly. An echocardiogram and cardiology consult have been ordered. He does have a history of coronary disease. His LDL is still above 100 and I will increase his simvastatin. His TSH was 45. While reviewing his anemia with hematology, a TSH level from there documentation revealed a TSH of 35 several months ago. I will increase his levothyroxine. His anemia is not new. He has been following with the yeast supervisor. We will coordinate with Dr. Solorzano 03/10/2020 The patient is doing better. His oxygen demands are less and is breathing more comfortably. Continue with the same regimen. Echocardiogram did reveal that the patient has a normal systolic function. He has grade 1/4 diastolic dysfunction and he has moderate to severe pulmonary hypertension. Continue current regimen. Under the large Band-Aid on his left wrist there was a foul-smelling wound that likely started as an abrasion. We will clean it with soapy water and start with saline dressings. The patient does not have a white count or fever and so no systemic antibiotics yet. Levothyroxine was increased to 200 mg The patient's LDL was not at goal. His simvastatin was increased to 40 mg daily. His hemoglobin did drop to 7.5. I discussed this with hematology. She will be ordering tests that he would have gotten at his follow-up appointment today and these are to monitor his chronic anemia. I did order a transfusion of packed red blood cells. He should feel better with the transfusion. At the end of the visit the patient did bring up placement. He said that he wants to retain some independence but is worried about being alone. I suggested, and he has been looking into, assisted living. I called the social work case manager and I did ask her to provide information on the area facilities for the patient. The echocardiogram showed severe pulmonary hypertension. Given the right heart failure and pulmonary hypertension the patient likely has cor pulmonale. Continue current treatment plan. - Time Time Spent with patient: 25-34 minutes
--- NOTE | 2020-03-13 17:23 | RADIOLOGY REPORT (SQ) ---
EXAM DESCRIPTION: CHEST SINGLE VIEW IMAGES COMPLETED DATE/TIME: 03/13/2020 5:10 pm REASON FOR STUDY: increased sob, prior to fluid bolus COMPARISON: 03/09/2020. EXAM PARAMETERS: NUMBER OF VIEWS: One view. TECHNIQUE: Single frontal radiographic view of the chest acquired. RADIATION DOSE: NA LIMITATIONS: None. FINDINGS: LUNGS AND PLEURA: Increasing airspace disease in the left lung base. MEDIASTINUM AND HILAR STRUCTURES: No masses. Contour normal. HEART AND VASCULAR STRUCTURES: Heart normal in size. Normal vasculature. BONES: No acute findings. HARDWARE: None in the chest. OTHER: No other significant finding. IMPRESSION: INCREASING AIRSPACE DISEASE IN THE LEFT LUNG BASE. TECHNICAL DOCUMENTATION: JOB ID: [id number] [employer]- All Rights Reserved Reading location - IP/workstation name: [email or web address]
[2020-03-13] MEDS: METHYLPREDNISOLONE INJ 40 MG/1 ML SDV IV SCH (17:50)
[2020-03-13] MEDS ORDERED: DOPAMINE HCL/DEXTROSE 5%-WATER 800 MG/250 ML RTUINJ IV PRN (18:44)
[2020-03-13] MEDS ORDERED: DOPAMINE HCL/DEXTROSE 5%-WATER 800 MG/250 ML RTUINJ IV ONE (18:44)
[2020-03-13] MEDS ORDERED: NORMAL SALINE 1000 ML 1,000 ML IV ONE (19:30)
[2020-03-13] MEDS ORDERED: LINEZOLID 600 MG/300 ML RTUPB IV ONE (20:21)
[2020-03-13] MEDS: LINEZOLID 600 MG/300 ML RTUPB IV SCH (20:27)
[2020-03-13] MEDS ORDERED: MEROPENEM 1 GM VIAL ONE (20:39)
[2020-03-13 21:11] LABS: ARTERIAL BLOOD BASE EXCESS 0.6 mmol/L; ARTERIAL BLOOD H2CO3 1.01 mmol/L (1.05-1.35); ARTERIAL BLOOD O2 SATURATION 79.1 % (94-98); ARTERIAL BLOOD PCO2 33.6 mmHg (35-45); ARTERIAL BLOOD PH 7.47 (7.35-7.45)
[2020-03-13] MEDS: MONTELUKAST SODIUM 10 MG TABLET PO SCH (21:18)
[2020-03-13] MEDS: ASPIRIN 81 MG TABLET, ENT COATED PO SCH (21:18)
[2020-03-13] MEDS: SIMVASTATIN 40 MG TABLET PO SCH (21:18)
[2020-03-13] MEDS: MEROPENEM 1 GM in NORMAL SALINE 50 ML IV SCH (21:27)
[2020-03-13 21:35] LABS: ARTERIAL BLOOD FIO2 80%
[2020-03-13 23:45] LABS: ARTERIAL BLOOD BASE EXCESS 0.7 mmol/L; ARTERIAL BLOOD H2CO3 1.06 mmol/L (1.05-1.35); ARTERIAL BLOOD HCO3 24.4 mmol/L (20-24); ARTERIAL BLOOD O2 SATURATION 93.1 % (94-98); ARTERIAL BLOOD PCO2 35.2 mmHg (35-45); ARTERIAL BLOOD PH 7.46 (7.35-7.45); ARTERIAL BLOOD TOTAL CO2 25.5 mmol/L (23-27)
[2020-03-13 23:47] LABS: ARTERIAL BLOOD FIO2 100%
[2020-03-14] MEDS: IPRATROPIUM/ALBUTEROL 0.5-2.5 MG/3 ML AMPUL NEB SCH ×4 (02:11→20:15)
[2020-03-14] MEDS: METHYLPREDNISOLONE INJ 40 MG/1 ML SDV IV SCH ×3 (02:20→17:27)
[2020-03-14 03:10] LABS: HEMATOCRIT 28.5 % (37.9-51.0); HEMOGLOBIN 10.1 g/dL (13.5-17.0); MEAN CORPUSCULAR HEMOGLOBIN 36.6 pg (27.0-33.4); MEAN CORPUSCULAR HGB CONC 35.5 g/dL (32.0-36.0); MEAN CORPUSCULAR VOLUME 103 fl (80-97); RED BLOOD COUNT 2.77 10^6/uL (4.35-5.55); RED CELL DISTRIBUTION WIDTH 21.7 % (11.5-14.0); WHITE BLOOD COUNT 17.9 10^3/uL (4.0-10.5)
[2020-03-14 03:14] LABS: INTERNATIONAL RATION (INR) 1.23; PLATELET COUNT 86 10^3/uL (150-450); PROTHROMBIN TIME 15.6 SEC (11.4-15.4)
[2020-03-14 03:37] LABS: CREATINE KINASE MB 5.26 ng/mL (<4.55); TROPONIN I 0.053 ng/mL
[2020-03-14 03:38] LABS: ABSOLUTE LYMPHOCYTES# (MANUAL) 0.2 10^3/uL (0.5-4.7); ABSOLUTE MONOCYTES # (MANUAL) 0.2 10^3/uL (0.1-1.4); BAND NEUTROPHILS % (MANUAL) 2 % (3-5); BASOPHILS % (MANUAL) 0 % (0-2); EOSINOPHILS % (MANUAL) 0 % (0-6); LYMPHOCYTES % (MANUAL) 1 % (13-45); MONOCYTES % (MANUAL) 1 % (3-13); SEGMENTED NEUTROPHILS % (MAN) 96 % (42-78); TOTAL CELLS COUNTED 100
[2020-03-14 03:39] LABS: ANISOCYTOSIS 3+; PLATELET COMMENT DECREASED
[2020-03-14 03:42] LABS: ALBUMIN 3.7 g/dL (3.5-5.0); ALKALINE PHOSPHATASE 81 U/L (38-126); ANION GAP 13 (5-19); ASPARTATE AMINO TRANSFERASE 23 U/L (17-59); BILIRUBIN,DIRECT 0.5 mg/dL (0.0-0.4); BILIRUBIN,TOTAL 1.6 mg/dL (0.2-1.3); BLOOD UREA NITROGEN 39 mg/dL (7-20); CALCIUM 8.5 mg/dL (8.4-10.2); CARBON DIOXIDE 23 mmol/L (22-30); CHLORIDE 95 mmol/L (98-107); GLUCOSE 194 mg/dL (75-110); POTASSIUM 4.2 mmol/L (3.6-5.0)
[2020-03-14] MEDS ORDERED: MEROPENEM 1 GM VIAL ONE (04:32)
[2020-03-14] MEDS: MEROPENEM 1 GM in NORMAL SALINE 50 ML IV SCH ×3 (04:41→21:09)
[2020-03-14] MEDS ORDERED: LINEZOLID 600 MG/300 ML RTUPB IV ONE (05:20)
--- NOTE | 2020-03-14 05:22 | PDOC CRITICAL CARE PROG REPORT ---
General Date:: 03/13/20 ICU Day:: 1 Resuscitation Status: Full Code Physical Exam Vital Signs: Temp Pulse Resp BP Pulse Ox 98 F 82 12 129/70 H 94 03/14/20 04:00 03/14/20 02:11 03/14/20 04:04 03/13/20 22:22 03/14/20 04:06 Intake & Output 03/12/20 03/13/20 03/14/20 06:59 06:59 06:59 Intake Total 9779 596 3495 Output Total 250 350 600 Balance 473 363 8148 Weight 97.5 kg 104.9 kg 106.6 kg Weight/Height Weight 106.6 kg Height 5 ft 11 in General appearance: PRESENT: mild distress Head exam: PRESENT: atraumatic Eye exam: PRESENT: PERRLA Mouth exam: PRESENT: moist, neck supple Teeth exam: PRESENT: edentulous Neck exam: PRESENT: full ROM Respiratory exam: PRESENT: accessory muscle use, decreased breath sounds Cardiovascular exam: PRESENT: +S1, +S2 Pulses: PRESENT: normal radial pulses, +1 pedal pulses bilateral GI/Abdominal exam: PRESENT: distended, normal bowel sounds, soft Extremities exam: PRESENT: +1 edema Musculoskeletal exam: PRESENT: full ROM Neurological exam: PRESENT: alert, awake, oriented to person, oriented to place, oriented to time, oriented to situation Psychiatric exam: PRESENT: normal mood Laboratory/Radiographs Laboratory Results: 03/14/20 02:59 03/14/20 02:59 03/13/20 03/13/20 03/13/20 10:00 10:00 21:10 WBC 15.9 H RBC 2.64 L Hgb 9.7 L Hct 27.7 L MCV 105 H MCH 36.7 H MCHC 35.0 RDW 21.5 H Plt Count 77 L Seg Neutrophils % Carbonic Acid 1.01 L HCO3/H2CO3 Ratio 23:1 ABG pH 7.47 H ABG pCO2 33.6 L ABG pO2 40.0 L* ABG HCO3 24.0 ABG O2 Saturation 79.1 L ABG Base Excess 0.6 FiO2 80% Sodium 128.3 L Potassium 4.2 Chloride 91 L Carbon Dioxide 28 Anion Gap 9 BUN 36 H Creatinine 1.72 H Est GFR ( Amer) 48 L Glucose 136 H Calcium 8.5 Total Bilirubin AST Alkaline Phosphatase Total Protein Albumin 03/13/20 03/14/2003/14/20 23:10 02:59 02:59 WBC 17.9 H RBC 2.77 L Hgb 10.1 L Hct 28.5 L MCV 103 H MCH 36.6 H MCHC 35.5 RDW 21.7 H Plt Count 86 L Seg Neutrophils % Not Reportable Carbonic Acid 1.06 HCO3/H2CO3 Ratio 23:1 ABG pH 7.46 H ABG pCO2 35.2 ABG pO2 62.0 L ABG HCO3 24.4 H ABG O2 Saturation 93.1 L ABG Base Excess 0.7 FiO2 100% Sodium 130.6 L Potassium 4.2 Chloride 95 L Carbon Dioxide 23 Anion Gap 13 BUN 39 H Creatinine 1.59 H Est GFR ( Amer) 52 L Glucose 194 H Calcium 8.5 Total Bilirubin 1.6 H AST 23 Alkaline Phosphatase 81 Total Protein 7.0 Albumin 3.7 03/09/20 03/09/20 03/10/20 11:45 11:45 05:06 Creatine Kinase 200 H CK-MB (CK-2) 8.77 H Troponin I < 0.012 NT-Pro-B Natriuret Pep 4220 H 3930 H 03/14/20 03/14/20 02:59 02:59 Creatine Kinase 81 CK-MB (CK-2) 5.26 H Troponin I 0.053 NT-Pro-B Natriuret Pep Impressions: Chest CT 03/09/20 13:12 IMPRESSION: 1. Mild left basilar and lingular peripheral consolidation and ground-glass attenuation likely atelectatic change although infectious/inflammatory process not entirely excluded. 2. Significant three-vessel coronary atherosclerosis. Cardiomegaly. 3. Emphysema. 4. 8 mm right lower lobe ground-glass nodule. Follow-up as below. Chest X-Ray 03/13/20 00:00 IMPRESSION: INCREASING AIRSPACE DISEASE IN THE LEFT LUNG BASE. All labs, radiographs, diagnostic studies and EKGs were personally reviewed: Yes In addition, reports of radiographic and diagnostic studies were read: Yes Assessment and Plan - Diagnosis (1) Acute and chronic respiratory failure with hypoxia Is this a current diagnosis for this admission?: Yes (2) Acute exacerbation of chronic obstructive pulmonary disease Is this a current diagnosis for this admission?: Yes (3) Qpfma-nz-ibsetkh kidney injury Qualifiers: Acute renal failure type: unspecified Chronic kidney disease stage: stage 3 (moderate) Qualified Code(s): N17.9 - Acute kidney failure, unspecified; N18.3 - Chronic kidney disease, stage 3 (moderate) Is this a current diagnosis for this admission?: Yes Plan Summary: This is a 70-year-old male with a past medical history of end-stage COPD on home oxygen, hypothyroidism on levothyroxine, CHF and an abdominal aortic aneurysm. He presented on 03/09/2020 with increased shortness of breath. He was admitted to the telemetry floor and treated for COPD exacerbation with linezolid and methylprednisolone. He became hypotensive this evening and was started on dopamine 5 mcg/kg/min. a rapid response was called at 2145 for increased shortness of breath and hypoxia. An ABG was sent pH 7.47 PCO2 33.6 PO2 40 bicarb 24 he was placed on BiPAP and transferred to the ICU for further management. His repeat ABG improved with a pH of 7.46 PCO2 35.2 PO2 62 and a bicarb of 24.4. Critical Time Critical Time (minutes): 60 Level of Care: ICU -: 1. The care of a critical patient is a dynamic process. This note is a associate sales representative synopsis but static in nature. The timeframe for treatments given in order is not necessarily the actual time these treatments may have been done. 2. This patient requires critical care secondary to ongoing requirements for therapy not offered or safe outside the critical care environment. Transfer to a lower level of care will result in altered life or limb morbidity and mortality. 3. Multidisciplinary rounds completed. 4. ABCDE bundle addressed.
[2020-03-14] MEDS: LINEZOLID 600 MG/300 ML RTUPB IV SCH ×2 (05:24→17:27)
[2020-03-14] MEDS: LEVOTHYROXINE SODIUM 0.1 MG TABLET PO SCH (05:24)
[2020-03-14] MEDS: PANTOPRAZOLE SODIUM 40 MG TABLET.DR PO SCH (05:24)
[2020-03-14] MEDS: BUDESONIDE NEB 0.5 MG/2 ML AMPUL NEB SCH ×2 (07:52→20:15)
--- NOTE | 2020-03-14 08:04 | EKG REPORT ---
SEVERITY:- ABNORMAL ECG - SINUS RHYTHM ATRIAL PREMATURE COMPLEX RIGHT BUNDLE BRANCH BLOCK : Confirmed by: Regina Bliss MD 14-Mar-2020 08:03:53
[2020-03-14] MEDS: NORMAL SALINE 1000 ML 1,000 ML IV PRN (09:25)
[2020-03-14] MEDS: FLUTICASONE NASAL SPRAY 50 MCG/SPRY 120 SPRAY/16 GM NASL SCH ×2 (09:32→21:10)
[2020-03-14 09:46] LABS: CREATINE KINASE MB 6.69 ng/mL (<4.55); TROPONIN I 0.053 ng/mL
[2020-03-14] MEDS ORDERED: FUROSEMIDE INJ/PF 40 MG/4 ML SDV IV ONE (13:49)
[2020-03-14 14:51] LABS: FREE T3 1.56 pg/mL (2.77-5.27); FREE T4 (FREE THYROXINE) 0.7 ng/dL (0.78-2.19)
[2020-03-14 15:41] LABS: CREATINE KINASE MB 5.42 ng/mL (<4.55); TROPONIN I 0.058 ng/mL
[2020-03-14] MEDS: ASPIRIN 81 MG TABLET, ENT COATED PO SCH (21:09)
[2020-03-14] MEDS: MONTELUKAST SODIUM 10 MG TABLET PO SCH (21:09)
[2020-03-14] MEDS: SIMVASTATIN 40 MG TABLET PO SCH (21:09)
[2020-03-15] MEDS: METHYLPREDNISOLONE INJ 40 MG/1 ML SDV IV SCH ×3 (01:02→17:35)
[2020-03-15] MEDS: NORMAL SALINE 1000 ML 1,000 ML IV PRN ×3 (01:03→23:42)
[2020-03-15] MEDS: IPRATROPIUM/ALBUTEROL 0.5-2.5 MG/3 ML AMPUL NEB SCH ×4 (02:20→20:16)
[2020-03-15 05:26] LABS: HEMATOCRIT 25.8 % (37.9-51.0); HEMOGLOBIN 9.1 g/dL (13.5-17.0); MEAN CORPUSCULAR HEMOGLOBIN 36.8 pg (27.0-33.4); MEAN CORPUSCULAR HGB CONC 35.4 g/dL (32.0-36.0); MEAN CORPUSCULAR VOLUME 104 fl (80-97); RED BLOOD COUNT 2.48 10^6/uL (4.35-5.55); RED CELL DISTRIBUTION WIDTH 21.8 % (11.5-14.0)
[2020-03-15] MEDS: MEROPENEM 1 GM in NORMAL SALINE 50 ML IV SCH ×3 (05:31→23:00)
[2020-03-15] MEDS: PANTOPRAZOLE SODIUM 40 MG TABLET.DR PO SCH (05:32)
[2020-03-15] MEDS: LEVOTHYROXINE SODIUM 0.1 MG TABLET PO SCH (05:32)
[2020-03-15] MEDS: LINEZOLID 600 MG/300 ML RTUPB IV SCH ×2 (05:32→17:35)
[2020-03-15 05:35] LABS: ANION GAP 11 (5-19); BLOOD UREA NITROGEN 49 mg/dL (7-20); CALCIUM 8.4 mg/dL (8.4-10.2); CARBON DIOXIDE 22 mmol/L (22-30); CHLORIDE 98 mmol/L (98-107); GLUCOSE 146 mg/dL (75-110); POTASSIUM 4.2 mmol/L (3.6-5.0)
[2020-03-15 05:58] LABS: PLATELET COUNT 63 10^3/uL (150-450)
[2020-03-15] MEDS: BUDESONIDE NEB 0.5 MG/2 ML AMPUL NEB SCH ×2 (07:49→20:15)
[2020-03-15] MEDS: FLUTICASONE NASAL SPRAY 50 MCG/SPRY 120 SPRAY/16 GM NASL SCH ×2 (10:20→21:23)
[2020-03-15] MEDS ORDERED: VANCOMYCIN HCL 0 MG in DEXTROSE 5%-WATER 250 ML IV NR (19:45)
--- NOTE | 2020-03-15 20:01 | PDOC CRITICAL CARE PROG REPORT ---
General Date:: 03/15/20 ICU Day:: 2 Hospital Day:: 6 Resuscitation Status: Full Code Events in the past 12 to 24 Hours:: 03.15.2020: Patient has been transition from high flow nasal cannula to usual nasal cannula at his perfunctory 8 L/min. He feels that he is at his baseline respiratory status. No chest pain no shortness of breath. Review of systems relevant to events:: Patient has significant pulmonary hypertension which appears to be WHO stage III Reason for ICU Addmission:: Hypoxic and hypercarbic respiratory failure - Medications: Medications reviewed and adjusted accordingly: Yes Vasopressors:: none Sedation:: None Physical Exam Vital Signs: Temp Pulse Resp BP Pulse Ox 97.6 F 88 16 91/57 L 90 L 03/15/20 19:43 03/15/20 18:00 03/15/20 18:00 03/15/20 18:00 03/15/20 18:00 Intake & Output 03/14/20 03/15/20 03/16/20 06:59 06:59 06:59 Intake Total 3358 2887 1000 Output Total 600 1020 200 Balance 2758 1867 800 Weight 106.6 kg 106.4 kg 106.4 kg Weight/Height Weight 106.4 kg Height 5 ft 11 in General appearance: PRESENT: no acute distress, obese Exam: Pleasant nontoxic obese appearing 70-year-old male in no active distress he is awake alert oriented x3 Head exam: PRESENT: atraumatic, normocephalic Eye exam: PRESENT: conjunctiva pink, EOMI, PERRLA. ABSENT: conjunctival injection, nystagmus, scleral icterus Mouth exam: PRESENT: dry mucosa Teeth exam: PRESENT: edentulous Neck exam: ABSENT: carotid bruit, JVD, lymphadenopathy, thyromegaly, tracheal deviation Respiratory exam: PRESENT: clear to auscultation vickey, unlabored. ABSENT: accessory muscle use, rales, rhonchi, wheezes Cardiovascular exam: PRESENT: RRR, +S1, +S2 Pulses: PRESENT: other - Perfusion intact no evidence of ischemia Vascular exam: PRESENT: normal capillary refill. ABSENT: pallor Rectal exam: PRESENT: deferred Gentrourinary exam: ABSENT: indwelling catheter Extremities exam: PRESENT: pedal edema, +1 edema. ABSENT: tenderness Musculoskeletal exam: ABSENT: deformity, dislocation, tenderness Neurological exam: PRESENT: alert, awake, oriented to person, oriented to place, oriented to time, oriented to situation, CN II-XII grossly intact. ABSENT: motor sensory deficit Psychiatric exam: PRESENT: appropriate affect, normal mood Focused psych exam: ABSENT: pressured speech, psychomotor agitation, restlessness Skin exam: PRESENT: intact, normal color. ABSENT: cyanosis, erythema, jaundice, pallor Laboratory/Radiographs Laboratory Results: 03/15/20 04:56 03/15/20 04:56 03/15/20 03/15/20 04:56 04:56 WBC 7.0 RBC 2.48 L Hgb 9.1 L Hct 25.8 L MCV 104 H MCH 36.8 H MCHC 35.4 RDW 21.8 H Plt Count 63 L Sodium 130.7 L Potassium 4.2 Chloride 98 Carbon Dioxide 22 Anion Gap 11 BUN 49 H Creatinine 1.62 H Est GFR ( Amer) 51 L Glucose 146 H Calcium 8.4 03/09/20 03/09/20 03/10/20 11:45 11:45 05:06 Creatine Kinase 200 H CK-MB (CK-2) 8.77 H Troponin I < 0.012 NT-Pro-B Natriuret Pep 4220 H 3930 H 03/14/20 03/14/20 03/14/20 02:59 02:59 09:00 Creatine Kinase 81 87 CK-MB (CK-2) 5.26 H Troponin I 0.053 NT-Pro-B Natriuret Pep 03/14/20 03/14/20 03/14/20 09:00 15:00 15:00 Creatine Kinase 80 CK-MB (CK-2) 6.69 H 5.42 H Troponin I 0.053 0.058 NT-Pro-B Natriuret Pep Impressions: Chest CT 03/09/20 13:12 IMPRESSION: 1. Mild left basilar and lingular peripheral consolidation and ground-glass attenuation likely atelectatic change although infec tious/inflammatory process not entirely excluded. 2. Significant three-vessel coronary atherosclerosis. Cardiomegaly. 3. Emphysema. 4. 8 mm right lower lobe ground-glass nodule. Follow-up as below. Chest X-Ray 03/13/20 00:00 IMPRESSION: INCREASING AIRSPACE DISEASE IN THE LEFT LUNG BASE. All labs, radiographs, diagnostic studies and EKGs were personally reviewed: Yes In addition, reports of radiographic and diagnostic studies were read: Yes Assessment and Plan - Diagnosis (4) Acute and chronic respiratory failure with hypoxia Is this a current diagnosis for this admission?: Yes (5) Cor pulmonale, chronic Is this a current diagnosis for this admission?: Yes (6) Pulmonary hypertension Is this a current diagnosis for this admission?: Yes Plan Summary: Patient's respiratory status has improved. Will continue to monitor accordingly. He has significant pulmonary pretension that may only be palliated with p hosphodiesterase inhibitor such as sildenafil. We will reserve this for now. Combination of digoxin and sildenafil as of sometimes been found to be beneficial and at least a 6-minute walk test. Patient has staph aureus bacteremia presumably from of left hand wound. Have ordered a x-ray to rule out osteomyelitis-. He is no longer hypotensive and he is off vasopressor therapy. We will consider transition to stepdown care in the next 12 to 24 hours if he remains stable. Continue steroids but reduce dose to every 12. Follow-up on routine blood cultures. Critical Time Critical Time (minutes): 0 - [id number] Level of Care: ICU Anticipated discharge: Acute Rehab Within: within 24 hours -: 1. The care of a critical patient is a dynamic process. This note is a international account representative synopsis but static in nature. The timeframe for treatments given in order is not necessarily the actual time these treatments may have been done. 2. This patient requires critical care secondary to ongoing requirements for therapy not offered or safe outside the critical care environment. Transfer to a lower level of care will result in altered life or limb morbidity and mo rtality. 3. Multidisciplinary rounds completed. 4. ABCDE bundle addressed.
[2020-03-15] MEDS ORDERED: VANCOMYCIN HCL INJ 1000 MG VIAL IV PRN (20:22)
[2020-03-15] MEDS ORDERED: VANCOMYCIN HCL 2,000 MG in DEXTROSE 5%-WATER 500 ML IV ONE (20:30)
--- NOTE | 2020-03-15 21:02 | RADIOLOGY REPORT (SQ) ---
EXAM DESCRIPTION: X-ray, three views of the left hand CLINICAL HISTORY: 70 years Male, wound to . Pain. COMPARISON: None. FINDINGS: Bone mineralization is diminished. 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 An arrow indicates that the area of clinical concern is the base of the first metacarpal. Alignment of the hand is anatomic. No fracture is seen. Diffuse edema of the soft tissues is present. No erosions or periostitis. No radiopaque foreign body. IMPRESSION: 1. Osteopenia. 2. Previous amputation of the distal thumb. 3. Diffuse soft tissue edema. No acute process.
[2020-03-15] MEDS ORDERED: VANCOMYCIN HCL INJ 1000 MG VIAL ONE (21:09)
[2020-03-15] MEDS: MONTELUKAST SODIUM 10 MG TABLET PO SCH (21:22)
[2020-03-15] MEDS: SIMVASTATIN 40 MG TABLET PO SCH (21:22)
[2020-03-15] MEDS: ASPIRIN 81 MG TABLET, ENT COATED PO SCH (21:22)
[2020-03-15 22:06] LABS: ANION GAP 14 (5-19); BLOOD UREA NITROGEN 55 mg/dL (7-20); CALCIUM 8.1 mg/dL (8.4-10.2); CARBON DIOXIDE 21 mmol/L (22-30); CHLORIDE 97 mmol/L (98-107); GLUCOSE 165 mg/dL (75-110); POTASSIUM 3.9 mmol/L (3.6-5.0)
[2020-03-15] MEDS ORDERED: NORMAL SALINE 1000 ML 500 ML IV ONE (23:26)
[2020-03-16] MEDS: IPRATROPIUM/ALBUTEROL 0.5-2.5 MG/3 ML AMPUL NEB SCH ×4 (01:49→19:55)
[2020-03-16 04:50] LABS: HEMATOCRIT 23.3 % (37.9-51.0); HEMOGLOBIN 8.3 g/dL (13.5-17.0); MEAN CORPUSCULAR HEMOGLOBIN 37.2 pg (27.0-33.4); MEAN CORPUSCULAR HGB CONC 35.8 g/dL (32.0-36.0); MEAN CORPUSCULAR VOLUME 104 fl (80-97); RED BLOOD COUNT 2.24 10^6/uL (4.35-5.55); RED CELL DISTRIBUTION WIDTH 21.6 % (11.5-14.0); WHITE BLOOD COUNT 4.4 10^3/uL (4.0-10.5)
[2020-03-16 05:01] LABS: ANION GAP 11 (5-19); BLOOD UREA NITROGEN 54 mg/dL (7-20); CALCIUM 8.1 mg/dL (8.4-10.2); CARBON DIOXIDE 22 mmol/L (22-30); CHLORIDE 98 mmol/L (98-107); GLUCOSE 139 mg/dL (75-110); POTASSIUM 3.8 mmol/L (3.6-5.0)
[2020-03-16 05:25] LABS: PLATELET COUNT 50 10^3/uL (150-450)
[2020-03-16 05:30] LABS: ABSOLUTE LYMPHOCYTES# (MANUAL) 0.5 10^3/uL (0.5-4.7); ABSOLUTE MONOCYTES # (MANUAL) 0.1 10^3/uL (0.1-1.4); BASOPHILS % (MANUAL) 0 % (0-2); EOSINOPHILS % (MANUAL) 0 % (0-6); LYMPHOCYTES % (MANUAL) 12 % (13-45); METAMYELOCYTES % (MANUAL) 1 % (0-1); MONOCYTES % (MANUAL) 2 % (3-13); SEGMENTED NEUTROPHILS % (MAN) 85 % (42-78); TOTAL CELLS COUNTED 100
[2020-03-16 05:31] LABS: TOXIC GRANULATION 1+
[2020-03-16 05:32] LABS: ANISOCYTOSIS 2+; HYPOCHROMASIA SLIGHT; OVALOCYTES 1+; PLATELET COMMENT DECREASED; POIKILOCYTOSIS 2+; SCHISTOCYTES SLIGHT
[2020-03-16] MEDS: MEROPENEM 1 GM in NORMAL SALINE 50 ML IV SCH (05:42)
[2020-03-16] MEDS: LEVOTHYROXINE SODIUM 0.1 MG TABLET PO SCH (05:43)
[2020-03-16] MEDS: PANTOPRAZOLE SODIUM 40 MG TABLET.DR PO SCH (05:43)
[2020-03-16] MEDS: METHYLPREDNISOLONE INJ 40 MG/1 ML SDV IV SCH ×2 (05:44→20:14)
[2020-03-16] MEDS: BUDESONIDE NEB 0.5 MG/2 ML AMPUL NEB SCH ×2 (08:03→19:55)
[2020-03-16] MEDS ORDERED: CEFAZOLIN 2 GM/D5W RTU 2 GM/50 ML RTUPB IV SCH (10:00)
[2020-03-16] MEDS: FLUTICASONE NASAL SPRAY 50 MCG/SPRY 120 SPRAY/16 GM NASL SCH ×2 (10:17→21:35)
[2020-03-16] MEDS: CEFAZOLIN SODIUM 2 GM in DEXTROSE 5%-WATER 100 ML IV SCH ×2 (10:41→20:14)
[2020-03-16] MEDS: NORMAL SALINE 1000 ML 1,000 ML IV PRN (10:43)
[2020-03-16] MEDS: RINGERS SOLUTION,LACTATED 1,000 ML IV PRN (15:37)
--- NOTE | 2020-03-16 15:47 | PDOC CRITICAL CARE PROG REPORT ---
General Date:: 03/16/20 ICU Day:: 3 Hospital Day:: 7 Resuscitation Status: Full Code Events in the past 12 to 24 Hours:: 03.16.2020: Patient tolerated transition to routine nasal cannula and is being maintained on his usual 8 L/min. Oxygen saturations have been above 90%. No hemodynamic instability. 03.15.2020: Patient has been transition from high flow nasal cannula to usual nasal cannula at his perfunctory 8 L/min. He feels that he is at his baseline respiratory status. No chest pain no shortness of breath. Review of systems relevant to events:: 03.16.2020: Reviewed partial medical records from the [facility]. Patient is seen at the [facility]. He is noted from echo from last year to have significant pulmonary pretension. He was seen in the pulmonary clinic but there is no treatment provided and no commentary on the pulmonary hypertension. Patient discloses that he feels that he is at his baseline from a respiratory standpoint. He had low urine output last evening which responded to fluids. Creatinine partially improved. 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 III Reason for ICU Addmission:: Hypoxic and hypercarbic respiratory failure - Medications: Medications reviewed and adjusted accordingly: Yes Vasopressors:: none Sedation:: None Physical Exam Vital Signs: Temp Pulse Resp BP Pulse Ox 97.5 F 98 20 112/68 91 L 03/16/20 12:00 03/16/20 13:37 03/16/20 13:37 03/16/20 12:00 03/16/20 13:37 Intake & Output 03/15/20 03/16/20 03/17/20 06:59 06:59 06:59 Intake Total 2887 1220 1000 Output Total 1020 980 0 Balance 0860 524 9041 Weight 106.4 kg 109.2 kg Weight/Height Weight 109.2 kg Height 5 ft 11 in General appearance: PRESENT: no acute distress, morbidly obese Exam: None intubated chronically ill-appearing 70-year-old male no acute distress. He is awake alert and oriented x3. Head exam: PRESENT: atraumatic, normocephalic Eye exam: PRESENT: conjunctiva pink, EOMI, PERRLA. ABSENT: conjunctival injection, nystagmus, scleral icterus Ear exam: PRESENT: other - Has bilateral ear creases Mouth exam: PRESENT: moist, tongue midline Teeth exam: PRESENT: edentulous Neck exam: ABSENT: carotid bruit, JVD, lymphadenopathy, meningismus, thyromegaly, tracheal deviation Respiratory exam: PRESENT: clear to auscultation vickey, tachypnea. ABSENT: rales, rhonchi, unlabored, wheezes Cardiovascular exam: PRESENT: RRR, +S1, +S2 Pulses: PRESENT: +1 pedal pulses bilateral GI/Abdominal exam: PRESENT: normal bowel sounds, soft. ABSENT: ascites, distended, guarding, mass, Blackwell's sign, organolmegaly, rebound, tenderness Rectal exam: PRESENT: deferred Gentrourinary exam: PRESENT: indwelling catheter Extremities exam: PRESENT: pedal edema Musculoskeletal exam: ABSENT: deformity, dislocation Neurological exam: PRESENT: alert, awake, oriented to person, oriented to place, oriented to time, oriented to situation, CN II-XII grossly intact. ABSENT: motor sensory deficit Psychiatric exam: PRESENT: appropriate affect, normal mood Focused psych exam: ABSENT: pressured speech, psychomotor agitation, restlessness Skin exam: PRESENT: dry, normal color, warm, other - Ulcer on left lateral proximal thumb base is less erythematous. Mild ecchymosis. Minimal drainage. Drainage is non-purulent. ABSENT: cyanosis, mottled, pallor - Sequeira catheter, rash Laboratory/Radiographs Laboratory Results: 03/16/20 04:25 03/16/20 04:25 03/15/20 03/16/20 03/16/20 21:35 04:25 04:25 WBC 4.4 RBC 2.24 L Hgb 8.3 L Hct 23.3 L MCV 104 H MCH 37.2 H MCHC 35.8 RDW 21.6 H Plt Count 50 L Seg Neutrophils % Not Reportable Sodium 131.7 L 131.4 L Potassium 3.9 3.8 Chloride 97 L 98 Carbon Dioxide 21 L 22 Anion Gap 14 11 BUN 55 H 54 H Creatinine 1.69 H 1.59 H Est GFR ( Amer) 49 L 52 L Glucose 165 H 139 H Calcium 8.1 L 8.1 L Phosphorus 4.0 Magnesium 2.1 03/09/20 03/09/20 03/10/20 11:45 11:45 05:06 Creatine Kinase 200 H CK-MB (CK-2) 8.77 H Troponin I < 0.012 NT-Pro-B Natriuret Pep 4220 H 3930 H 03/14/20 03/14/20 03/14/20 02:59 02:59 09:00 Creatine Kinase 81 87 CK-MB (CK-2) 5.26 H Troponin I 0.053 NT-Pro-B Natriuret Pep 03/14/20 03/14/20 03/14/20 09:00 15:00 15:00 Creatine Kinase 80 CK-MB (CK-2) 6.69 H 5.42 H Troponin I 0.053 0.058 NT-Pro-B Natriuret Pep Impressions: Chest CT 03/09/20 13:12 IMPRESSION: 1. Mild left basilar and lingular peripheral consolidation and ground-glass attenuation likely atelectatic change although infectious/infla mmatory process not entirely excluded. 2. Significant three-vessel coronary atherosclerosis. Cardiomegaly. 3. Emphysema. 4. 8 mm right lower lobe ground-glass nodule. Follow-up as below. Chest X-Ray 03/13/20 00:00 IMPRESSION: INCREASING AIRSPACE DISEASE IN THE LEFT LUNG BASE. Hand X-Ray 03/15/20 00:00 IMPRESSION: 1. Osteopenia. 2. Previous amputation of the distal thumb. 3. Diffuse soft tissue edema. No acute process. All labs, radiographs, diagnostic studies and EKGs were personally reviewed: Yes In addition, reports of radiographic and diagnostic studies were read: Yes Assessment and Plan - Diagnosis (1) Acute and chronic respiratory failure with hypoxia Is this a current diagnosis for this admission?: Yes (2) Cor pulmonale, chronic Is this a current diagnosis for this admission?: Yes (3) Pulmonary hypertension Is this a current diagnosis for this admission?: Yes Plan: WHO class III (4) Open wound of left hand Is this a current diagnosis for this admission?: Yes (5) Light chain disease Is this a current diagnosis for this admission?: Yes Plan: Subtype under investigation possible multiple myeloma or amyloidosis (6) Macrocytosis Is this a current diagnosis for this admission?: Yes Plan Summary: 03.16.2020: Respiratory: Patient's respiratory status has improved. Overall has poor prognosis. Had lengthy discussion with the patient about his pulmonary hypertension. He may be an candidate for phosphodiesterase therapy as noted from yesterday's note. We will have pulmonary evaluate the patient. He is possibly a candidate for VQ scan to look at the perfunctory ability of lung and perfusion. Continue current therapy. He will need to be placed on his long- acting beta agonist therapy before discharge. Have reconsulted Dr. Serrano who is aware of the patient. Patient had a consult and appointment with Dr. Serrano last week but unfortunately was unable to make it. He has had multiple hospital admissions which have prevented him from appropriate follow-up at times. Infectious: Inadvertently reported as staph aureus bacteremia is not the case. Blood cultures are still pending. Cultures from wound are MSSA and he has been transitioned to Ancef. We will continue to monitor and follow his counts. White count has improved significantly. Continue Ancef for at least 5 to 7 days and longer if blood cultures are positive. Will need transesophageal echo if if there is bacteremia and it persist. The left hand wound is the same hand that he had previous malignancy in. X-rays do not show any osteomyelitis or any bony changes however if the wound persist a biopsy will need to be undertaken. Cardiac: Patient's cardiac status has remained non-labile. He does have significant pulmonary hypertension with right ventricular strain and cor pulmonale which is chronic. He may be a candidate for phosphodiesterase and digoxin therapy to be considered by the pulmonary service. Hematologic: Patient has a macrocytosis which is can concerning for malignancy. He also has light chain disease with elevation in both lambda and kappa subtypes. I have asked hematology to evaluate the patient for possible amyloidosis and/or multiple myeloma. He does not require transfusion however given his pulmonary disease I would expect a slight higher elevation in hemoglobin and hematocrit from chronic hypoxia. The fact that he has a low hemoglobin/hematocrit in the face of this points to a significant dysfunction. He does not have reticulocytosis which points to marrow issue. Will need to be prudent to watch for hypoxia worsening from anemia. Folate and B12 are appropriate. It appears that he was undergoing some type of work-up as an outpatient at the [facility] but no formal hematologic evaluation was found. 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 Endocrine: Patient's TSH was elevated and his Synthroid has been increased. Renal: Acute on chronic renal failure. He has responded to IV fluids. A judicious balance of fluid therapy will need to be maintained given his pulmonary hypertension. Have changed him to LR at 75 cc an hour. Renal ultrasound has been ordered as well. Metabolic: Continue to monitor and support as needed. Follow calcium with the possibility of multiple myeloma. Alimentary: No active issues continue to follow supportively Neurologic: No active issues. Patient's Neurontin has been held because of encephalopathy and concern for hypercarbia. He is on subcutaneous buprenorphine. He has a history of chronic pain Sedation: Watch for sedation issues especially if Neurontin needs to be restarted. Lines/Tubes: None Other: Had lengthy discussion with the patient about goals of care and end-of-life. He would want full resuscitation and placed on mechanical ventilation but does not want to be maintained on this for an indefinite period of time. He does not have a complete understanding of the terminal nature of his disease and should a malignancy be discovered further amplification of the complexities of his process will need to be discussed with him and his family. Had a lengthy discussion with his daughter Kisha who is in route to the hospital to discuss goals of care. Although the patient is not immediately in danger the extent of his illness is such that established goals of care will need to be maintained. We will report the discussion in a progress note format should the meeting occur. 03.15.2020: Patient's respiratory status has improved. Will continue to monitor accordingly. He has significant pulmonary pretension that may only be palliated with phosphodiesterase inhibitor such as sildenafil. We will reserve this for now. Combination of digoxin and sildenafil as of sometimes been found to be beneficial and at least a 6-minute walk test. Patient has staph aureus bacteremia presumably from of left hand wound. Have ordered a x-ray to rule out osteomyelitis-. He is no longer hypotensive and he is off vasopressor therapy. We will consider transition to stepdown care in the next 12 to 24 hours if he remains stable. Continue steroids but reduce dose to every 12. Follow-up on routine blood cultures. Critical Time Critical Time (minutes): 35 - End-of-life and goals of care discussion/[id number] Level of Care: TELE Anticipated discharge: SNF Within: within 48 hours -: 1. The care of a critical patient is a dynamic process. This note is a r epresentative synopsis but static in nature. The timeframe for treatments given in order is not necessarily the actual time these treatments may have been done. 2. This patient requires critical care secondary to ongoing requirements for therapy not offered or safe outside the critical care environment. Transfer to a lower level of care will result in altered life or limb morbidity and mortali ty. 3. Multidisciplinary rounds completed. 4. ABCDE bundle addressed.
--- NOTE | 2020-03-16 19:25 | RADIOLOGY REPORT (SQ) ---
EXAM DESCRIPTION: U/S RETROPERITON (RENAL/AORTA) IMAGES COMPLETED DATE/TIME: 03/16/2020 6:06 pm REASON FOR STUDY: renal failure COMPARISON: None. TECHNIQUE: Dynamic and static grayscale images acquired of the kidneys and bladder and recorded on P ACS. Additional selected color Doppler and spectral images recorded. LIMITATIONS: None. FINDINGS: RIGHT KIDNEY: Normal size, 10 cm. Normal echogenicity. No solid or suspicious masses. No h ydronephrosis. No calcifications. LEFT KIDNEY: Normal size, 10.8 cm. Normal echogenicity. No solid or suspicious masses. No hydronephr osis. No calcifications. BLADDER: There is a 2.4 x 1 x 2.5 cm somewhat echogenic nodule in the base the bladder. OTHER FINDINGS: No other significant finding. IMPRESSION: Normal kidneys. There appears to be a mass in the base of the bladder. This is on the left side. TECHNICAL DOCUMENTATION: JOB ID: [id number] 2010 [employer] All Rights Reserved Reading location - IP/workstation name: [email or web address]
[2020-03-16] MEDS: ASPIRIN 81 MG TABLET, ENT COATED PO SCH (21:35)
[2020-03-16] MEDS: SIMVASTATIN 40 MG TABLET PO SCH (21:35)
[2020-03-16] MEDS: MONTELUKAST SODIUM 10 MG TABLET PO SCH (21:35)
[2020-03-17] MEDS: CEFAZOLIN SODIUM 2 GM in DEXTROSE 5%-WATER 100 ML IV SCH ×3 (01:50→18:51)
[2020-03-17] MEDS: IPRATROPIUM/ALBUTEROL 0.5-2.5 MG/3 ML AMPUL NEB SCH ×4 (02:08→19:58)
[2020-03-17 05:10] LABS: HEMATOCRIT 23.8 % (37.9-51.0); HEMOGLOBIN 8.4 g/dL (13.5-17.0); MEAN CORPUSCULAR HEMOGLOBIN 37.1 pg (27.0-33.4); MEAN CORPUSCULAR HGB CONC 35.3 g/dL (32.0-36.0); MEAN CORPUSCULAR VOLUME 105 fl (80-97); RED BLOOD COUNT 2.27 10^6/uL (4.35-5.55); RED CELL DISTRIBUTION WIDTH 21.9 % (11.5-14.0)
[2020-03-17] MEDS: LEVOTHYROXINE SODIUM 0.1 MG TABLET PO SCH (05:15)
[2020-03-17] MEDS: METHYLPREDNISOLONE INJ 40 MG/1 ML SDV IV SCH ×2 (05:15→17:15)
[2020-03-17] MEDS: RINGERS SOLUTION,LACTATED 1,000 ML IV PRN (05:16)
[2020-03-17 05:26] LABS: PLATELET COUNT 45 10^3/uL (150-450); WHITE BLOOD COUNT 9.7 10^3/uL (4.0-10.5)
[2020-03-17 05:32] LABS: ABSOLUTE LYMPHOCYTES# (MANUAL) 0.7 10^3/uL (0.5-4.7); ABSOLUTE MONOCYTES # (MANUAL) 0.1 10^3/uL (0.1-1.4); ANISOCYTOSIS 3+; BAND NEUTROPHILS % (MANUAL) 1 % (3-5); BASOPHILS % (MANUAL) 0 % (0-2); EOSINOPHILS % (MANUAL) 0 % (0-6); LYMPHOCYTES % (MANUAL) 7 % (13-45); MONOCYTES % (MANUAL) 1 % (3-13); SEGMENTED NEUTROPHILS % (MAN) 91 % (42-78); TOTAL CELLS COUNTED 100
[2020-03-17 05:33] LABS: TOXIC GRANULATION SLIGHT
[2020-03-17 05:34] LABS: PLATELET COMMENT DECREASED
[2020-03-17 05:36] LABS: ANION GAP 12 (5-19); BLOOD UREA NITROGEN 47 mg/dL (7-20); CALCIUM 8.5 mg/dL (8.4-10.2); CARBON DIOXIDE 22 mmol/L (22-30); CHLORIDE 101 mmol/L (98-107); GLUCOSE 136 mg/dL (75-110); PHOSPHORUS 3.8 mg/dL (2.5-4.5); POTASSIUM 3.9 mmol/L (3.6-5.0)
[2020-03-17 05:40] LABS: OVALOCYTES SLIGHT
[2020-03-17] MEDS: BUDESONIDE NEB 0.5 MG/2 ML AMPUL NEB SCH ×2 (07:38→19:58)
[2020-03-17] MEDS ORDERED: FUROSEMIDE INJ/PF 20 MG/2 ML SDV IV ONE ×3 (08:50→13:15)
[2020-03-17] MEDS ORDERED: MORPHINE SULFATE 10 MG/ML INJ IV ONE (08:50)
[2020-03-17] MEDS ORDERED: MORPHINE SULFATE 10 MG/ML INJ IV PRN (08:52)
--- NOTE | 2020-03-17 08:59 | PDOC PROGRESS REPORT ---
Subjective Progress Note for:: 03/17/20 Subjective:: Called to see the patient with worsening shortness of breath. Audible congested breath sounds at the bedside. He is also complaining of left-sided pain. He wants to lay flat because he states it makes him feel better however I suspect failure and we are trying to keep the head of the bed at least at 30 degrees. His oxygen demand has been increasing. Reason For Visit: HYPOXIA Physical Exam Vital Signs: Temp Pulse Resp BP Pulse Ox 97.4 F 99 22 H 112/70 89 L 03/17/20 03:51 03/17/20 07:42 03/17/20 07:42 03/17/20 04:00 03/17/20 07:42 Intake & Output 03/16/20 03/17/20 03/18/20 06:59 06:59 06:59 Intake Total 1220 4475 Output Total 980 920 Balance 240 3555 Weight 109.2 kg 111.5 kg General appearance: PRESENT: cooperative, severe distress, well-developed, well- nourished Head exam: PRESENT: atraumatic, normocephalic Eye exam: PRESENT: conjunctiva pale. ABSENT: scleral icterus Ear exam: PRESENT: normal external ear exam. ABSENT: bleeding, drainage Mouth exam: PRESENT: moist, tongue midline Respiratory exam: PRESENT: rales - Diffusely through the right side., symmetri kristina, tachypnea - With labored breathing. ABSENT: rhonchi, wheezes Cardiovascular exam: PRESENT: RRR, +S1, +S2, other - Difficult to hear cardiac sounds with diffuse rales. ABSENT: irregular rhythm GI/Abdominal exam: PRESENT: diminished bowel sounds, soft. ABSENT: distended, guarding, tenderness Rectal exam: PRESENT: deferred Extremities exam: ABSENT: pedal edema Musculoskeletal exam: PRESENT: normal inspection Neurological exam: PRESENT: alert, awake, oriented to person, oriented to place, oriented to situation, CN II-XII grossly intact Psychiatric exam: PRESENT: agitated, anxious - Due to difficulty breathing Focused psych exam: ABSENT: delusional, paranoid, restlessness Results Laboratory Results: 03/17/20 04:49 03/17/20 04:49 03/16/20 03/17/20 03/17/20 14:38 04:49 04:49 WBC 9.7 D RBC 2.27 L Hgb 8.4 L Hct 23.8 L MCV 105 H MCH 37.1 H MCHC 35.3 RDW 21.9 H Plt Count 45 L Seg Neutrophils % Not Reportable Sodium 134.5 L Potassium 3.9 Chloride 101 Carbon Dioxide 22 Anion Gap 12 BUN 47 H Creatinine 1.35 H Est GFR ( Amer) > 60 Glucose 136 H Calcium 8.5 Phosphorus 3.8 Magnesium 2.1 C-Reactive Protein 134.5 H 03/09/20 03/09/20 03/10/20 11:45 11:45 05:06 Creatine Kinase 200 H CK-MB (CK-2) 8.77 H Troponin I < 0.012 NT-Pro-B Natriuret Pep 4220 H 3930 H 03/14/20 03/14/20 03/14/20 02:59 02:59 09:00 Creatine Kinase 81 87 CK-MB (CK-2) 5.26 H Troponin I 0.053 NT-Pro-B Natriuret Pep 03/14/20 03/14/20 03/14/20 09:00 15:00 15:00 Creatine Kinase 80 CK-MB (CK-2) 6.69 H 5.42 H Troponin I 0.053 0.058 NT-Pro-B Natriuret Pep Impressions: Chest CT 03/09/20 13:12 IMPRESSION: 1. Mild left basilar and lingular peripheral consolidation and ground-glass attenuation likely atelectatic change although infectious/inflammatory process not entirely excluded. 2. Significant three-vessel coronary atherosclerosis. Cardiomegaly. 3. Emphysema. 4. 8 mm right lower lobe ground-glass nodule. Follow-up as below. Chest X-Ray 03/13/20 00:00 IMPRESSION: INCREASING AIRSPACE DISEASE IN THE LEFT LUNG BASE. Hand X-Ray 03/15/20 00:00 IMPRESSION: 1. Osteopenia. 2. Previous amputation of the distal thumb. 3. Diffuse soft tissue edema. No acute process. Renal Ultrasound 03/16/20 00:00 IMPRESSION: Normal kidneys. There appears to be a mass in the base of the bladder. This is on the left side. Assessment and Plan - Diagnosis (1) Acute and chronic respiratory failure with hypoxia Is this a current diagnosis for this admission?: Yes Plan: We have had to bump him up to a heated high flow nasal cannula to keep his saturations up. He was completely asymptomatic when we had to make this change. He said he uses some sort of a device at home to help his breathing but he does not know what it is. He was supposed to see Dr. Serrano in follow-up because [place] and he was going to see with someone in the community, and he has had several appointments missed with Dr. Serrano, but has not seen him yet. 03/17/2020 The patient is struggling this morning. He is requiring increased oxygen. We will try to keep saturations above 88%. There could be a component with fluid overload as he was over 3 L net positive yesterday. (2) Acute exacerbation of chronic obstructive pulmonary disease Is this a current diagnosis for this admission?: Yes Plan: Resolved. No evidence of wheezing or dyspnea. 03/17/2020 The patient has nebulizers ordered. He does have diffuse rales with no wheezes. He believes his COPD is stable but his acute shortness of breath is more related to volume overload. (3) Chronic diastolic heart failure with preserved ejection fraction Is this a current diagnosis for this admission?: Yes Plan: 03/17/2020 Echocardiogram from this admission reveals preserved ejection fraction with grade 1/4 diastolic dysfunction. Patient also has severe pulmonary hypertension. Due to his recent net positive fluid balance I have ordered Lasix and morphine. (4) Macrocytic anemia Is this a current diagnosis for this admission?: Yes Plan: 03/17/2020 Being worked up by hematology. Myeloma is a consideration but multiple results are still pending. (5) Chronic pain Qualifiers: Chronic pain type: other chronic pain Qualified Code(s): G89.29 - Other chr onic pain Is this a current diagnosis for this admission?: Yes Plan: 03/17/2020 His pain patch is not on formulary. His daughter Kisha is possibly dropping him off the supply that he has at home. As needed analgesics for now. (6) Coronary artery disease Qualifiers: Coronary Disease-Associated Artery/Lesion type: [place] artery [place] vs. transplanted heart: tanana heart Associated angina: without angina Qualified Code(s): I25.10 - Atherosclerotic heart disease of tan[place] coronary artery without angina pectoris Is this a current diagnosis for this admission?: Yes Plan: 03/17/2020 No complaints of chest pain related to coronary artery disease. He does compl ain of some musculoskeletal chest pain on the left. Continue current regimen. (7) Hypothyroidism Qualifiers: Hypothyroidism type: unspecified Qualified Code(s): E03.9 - Hypothyroidism, unspecified Is this a current diagnosis for this admission?: Yes Plan: 03/17/2020 Continue levothyroxine (8) Abrasion of left hand Qualifiers: Encounter type: initial encounter Qualified Code(s): S60.512A - Abrasion of left hand, initial encounter Is this a current diagnosis for this admission?: Yes Plan: Wound care has been to see him, but he said this was the main reason he came to the hospital. Had a foul smell to it, so I empirically started him on some antibiotics. We will continue to have him follow-up with the wound care center. 03/17/2020 Significantly improved. Did receive antibiotic therapy. (9) Hypercholesterolemia Is this a current diagnosis for this admission?: Yes Plan: 03/17/2020 Continue statin therapy (10) Pulmonary hypertension Is this a current diagnosis for this admission?: Yes Plan: WHO class III 03/17/2020 No specific intervention directed at the pulmonary hypertension. Continue curr ent general medical regimen. (11) Thrombocytopenia Is this a current diagnosis for this admission?: Yes Plan: 03/17/2020 Exact etiology unknown. Platelet counts have been decreasing since admission. He is currently not on any heparin products. Hematology is also seeing the patient for his anemia as well as the thrombocytopenia. - Plan Summary Summary: 03/09/2020 The COPD exacerbation with acute on chronic respiratory failure will be treated with nebulizer therapy and supplemental oxygen. No evidence of infection therefore no antibiotics. The patient is suspected of having heart failure. There was cardiomegaly. An echocardiogram and cardiology consult have been ordered. He does have a history of coronary disease. His LDL is still above 100 and I will increase his simvastatin. His TSH was 45. While reviewing his anemia with hematology, a TSH level from there documentation revealed a TSH of 35 several months ago. I will increase his levothyroxine. His anemia is not new. He has been following with the game agent. We will coordinate with Dr. Solorzano 03/10/2020 The patient is doing better. His oxygen demands are less and is breathing more comfortably. Continue with the same regimen. Echocardiogram did reveal that the patient has a normal systolic function. He has grade 1/4 diastolic dysfunction and he has moderate to severe pulmonary hypertension. Continue current regimen. Under the large Band-Aid on his left wrist there was a foul-smelling wound that likely started as an abrasion. We will clean it with soapy water and start with saline dressings. The patient does not have a white count or fever and so no systemic antibiotics yet. Levothyroxine was increased to 200 mg The patient's LDL was not at goal. His simvastatin was increased to 40 mg daily. His hemoglobin did drop to 7.5. I discussed this with hematology. She will be ordering tests that he would have gotten at his follow-up appointment today and these are to monitor his chronic anemia. I did order a transfusion of packed red blood cells. He should feel better with the transfusion. At the end of the visit the patient did bring up placement. He said that he wants to retain some independence but is worried about being alone. I suggested, and he has been looking into, assisted living. I called the rn case mgr and I did ask her to provide information on the area facilities for the patient. The echocardiogram showed severe pulmonary hypertension. Given the right heart failure and pulmonary hypertension the patient likely has cor pulmonale. Continue current treatment plan. - Time Time Spent with patient: 25-34 minutes Medications reviewed and adjusted accordingly: Yes
--- NOTE | 2020-03-17 10:25 | RADIOLOGY REPORT (SQ) ---
EXAM DESCRIPTION: CHEST SINGLE VIEW IMAGES COMPLETED DATE/TIME: 03/17/2020 9:59 am REASON FOR STUDY: Worsening shortness of breath COMPARISON: AP view of the chest from 03/13/2020. EXAM PARAMETERS: NUMBER OF VIEWS: One view. TECHNIQUE: An AP view of the chest was obtained. RADIATION DOSE: NA LIMITATIONS: None. FINDINGS: LUNGS AND PLEURA: Unchanged consolidative opacities in the inferior aspect of the left hem ithorax that obscure the contour of the hemidiaphragm and blunt the costophrenic sulci. The opacitie s in the inferior aspect of the right hemithorax are also unchanged. The round right lateral costoph renic sulcus is blunted. There is no pneumothorax. MEDIASTINUM AND HILAR STRUCTURES: Stable mediastinal and hilar contours. HEART AND VASCULAR STRUCTURES: Stable enlarged cardiac silhouette. BONES: No acute findings. HARDWARE: None in the chest. OTHER: No other finding. IMPRESSION: Unchanged radiographic appearance of the chest. In particular, the consolidative opacit ies in the inferior aspect of the left hemithorax that could represent a combination of pleural fluid , atelectasis and/or consolidation are unchanged. TECHNICAL DOCUMENTATION: JOB ID: [id number] 2010 [email or web address]- All Rights Reserved Reading location - IP/workstation name: [email or web address]
[2020-03-17 10:31] LABS: ARTERIAL BLOOD BASE EXCESS -6.6 mmol/L; ARTERIAL BLOOD H2CO3 0.94 mmol/L (1.05-1.35); ARTERIAL BLOOD HCO3 17.7 mmol/L (20-24); ARTERIAL BLOOD O2 SATURATION 86.4 % (94-98); ARTERIAL BLOOD PCO2 31.2 mmHg (35-45); ARTERIAL BLOOD PH 7.37 (7.35-7.45); ARTERIAL BLOOD TOTAL CO2 18.6 mmol/L (23-27)
[2020-03-17 10:33] LABS: ARTERIAL BLOOD FIO2 100%
[2020-03-17] MEDS: FLUTICASONE NASAL SPRAY 50 MCG/SPRY 120 SPRAY/16 GM NASL SCH ×2 (10:41→21:18)
[2020-03-17] MEDS: LORAZEPAM INJ 2 MG/1 ML VIAL IV PRN ×2 (10:51→19:42)
[2020-03-17] MEDS ORDERED: METHYLPREDNISOLONE INJ 125 MG/2 ML SDV IV ONE (12:11)
[2020-03-17] MEDS ORDERED: MIDODRINE HCL 5 MG TABLET PO ONE (12:28)
--- NOTE | 2020-03-17 12:31 | PDOC PROGRESS REPORT ---
Subjective Progress Note for:: 03/17/20 Subjective:: Despite high flow nasal cannula and 600+ milliliters urine output his saturation still remains less than 80% Reason For Visit: HYPOXIA Physical Exam Vital Signs: Temp Pulse Resp BP Pulse Ox 97.5 F 92 29 H 110/72 84 L 03/17/20 08:00 03/17/20 08:00 03/17/20 08:00 03/17/20 09:27 03/17/20 08:00 Intake & Output 03/16/20 03/17/20 03/18/20 06:59 06:59 06:59 Intake Total 1220 4475 372 Output Total 980 920 Balance 240 3555 372 Weight 109.2 kg 111.5 kg General appearance: PRESENT: severe distress Respiratory exam: PRESENT: decreased breath sounds - At bases, rales - Noticeably decreased rales, symmetrical, tachypnea. ABSENT: rhonchi, wheezes Cardiovascular exam: PRESENT: RRR, +S1, +S2, tachycardia GI/Abdominal exam: PRESENT: diminished bowel sounds, soft. ABSENT: distended, guarding, tenderness Rectal exam: PRESENT: deferred Gentrourinary exam: PRESENT: indwelling catheter Extremities exam: ABSENT: pedal edema Neurological exam: PRESENT: alert, awake, oriented to person, oriented to place, oriented to situation Psychiatric exam: PRESENT: anxious Results Laboratory Results: 03/17/20 04:49 03/17/20 04:49 03/16/20 03/17/20 03/17/20 14:38 04:49 04:49 WBC 9.7 D RBC 2.27 L Hgb 8.4 L Hct 23.8 L MCV 105 H MCH 37.1 H MCHC 35.3 RDW 21.9 H Plt Count 45 L Seg Neutrophils % Not Reportable Carbonic Acid HCO3/H2CO3 Ratio ABG pH ABG pCO2 ABG pO2 ABG HCO3 ABG O2 Saturation ABG Base Excess FiO2 Sodium 134.5 L Potassium 3.9 Chloride 101 Carbon Dioxide 22 Anion Gap 12 BUN 47 H Creatinine 1.35 H Est GFR ( Amer) > 60 Glucose 136 H Calcium 8.5 Phosphorus 3.8 Magnesium 2.1 C-Reactive Protein 134.5 H 03/17/20 10:00 WBC RBC Hgb Hct MCV MCH MCHC RDW Plt Count Seg Neutrophils % Carbonic Acid 0.94 L HCO3/H2CO3 Ratio 18:1 ABG pH 7.37 ABG pCO2 31.2 L ABG pO2 52.0 L ABG HCO3 17.7 L ABG O2 Saturation 86.4 L ABG Base Excess -6.6 FiO2 100% Sodium Potassium Chloride Carbon Dioxide Anion Gap BUN Creatinine Est GFR ( Amer) Glucose Calcium Phosphorus Magnesium C-Reactive Protein 03/09/20 03/09/20 03/10/20 11:45 11:45 05:06 Creatine Kinase 200 H CK-MB (CK-2) 8.77 H Troponin I < 0.012 NT-Pro-B Natriuret Pep 4220 H 3930 H 03/14/20 03/14/20 03/14/20 02:59 02:59 09:00 Creatine Kinase 81 87 CK-MB (CK-2) 5.26 H Troponin I 0.053 NT-Pro-B Natriuret Pep 03/14/20 03/14/20 03/14/20 09:00 15:00 15:00 Creatine Kinase 80 CK-MB (CK-2) 6.69 H 5.42 H Troponin I 0.053 0.058 NT-Pro-B Natriuret Pep Impressions: Chest CT 03/09/20 13:12 IMPRESSION: 1. Mild left basilar and lingular peripheral consolidation and ground-glass attenuation likely atelectatic change although infectious/inflammatory process not entirely excluded. 2. Significant three-vessel coronary atherosclerosis. Cardiomegaly. 3. Emphysema. 4. 8 mm right lower lobe ground-glass nodule. Follow-up as below. Hand X-Ray 03/15/20 00:00 IMPRESSION: 1. Osteopenia. 2. Previous amputation of the distal thumb. 3. Diffuse soft tissue edema. No acute process. Renal Ultrasound 03/16/20 00:00 IMPRESSION: Normal kidneys. There appears to be a mass in the base of the bladder. This is on the left side. Chest X-Ray 03/17/20 00:00 IMPRESSION: Unchanged radiographic appearance of the chest. In particular, the consolidative opacities in the inferior aspect of the left hemithorax that could represent a combination of pleural fluid, atelectasis and/or consolidation are unchanged. Assessment and Plan - Diagnosis (1) Acute and chronic respiratory failure with hypoxia Is this a current diagnosis for this admission?: Yes Plan: We have had to bump him up to a heated high flow nasal cannula to keep his saturations up. He was completely asymptomatic when we had to make this change. He said he uses some sort of a device at home to help his breathing but he does not know what it is. He was supposed to see Dr. Serrano in follow-up because [place] and he was going to see with someone in the community, and he has had several appointments missed with Dr. Serrano, but has not seen him yet. 03/17/2020 The patient is struggling this morning. He is requiring increased oxygen. We will try to keep saturations above 88%. There could be a component with fluid overload as he was over 3 L net positive yesterday 03/17/2020 Second for evaluation You have been utilizing different strategies. The patient has been started on IV furosemide. We are utilizing intravenous morphine to help with breathing that I feel is related to volume overload. Unfortunately his oxygen demands continue to increase. The patient is at a point where despite multiple interventions including IV diuretics, IV steroids and IV morphine his saturations remained less than 80%. We have been discussing the case with the crosscutter Dr. Luna. He in fact came up to review the patient earlier. We had instituted some interventions that he and I discussed. Unfortunately patient is not responding. He is DO NOT RESUSCITATE however there may be other interventions that may help the patient. Dr. Luna has agreed to bring the patient back to the ICU. (2) Acute exacerbation of chronic obstructive pulmonary disease Is this a current diagnosis for this admission?: Yes (3) Macrocytic anemia Is this a current diagnosis for this admission?: Yes (4) Chronic pain Qualifiers: Chronic pain type: other chronic pain Qualified Code(s): G89.29 - Other chronic pain Is this a current diagnosis for this admission?: Yes (5) Coronary artery disease Qualifiers: Coronary Disease-Associated Artery/Lesion type: tor[place]inez artery [place] vs. transplanted heart: torres martinez heart Associated angina: without angina Qualified Code(s): I25.10 - Atherosclerotic heart disease of tor[place]inez coronary artery without angina pectoris Is this a current diagnosis for this admission?: Yes (6) Hypothyroidism Qualifiers: Hypothyroidism type: unspecified Qualified Code(s): E03.9 - Hypothyroidism, unspecified Is this a current diagnosis for this admission?: Yes (7) Abrasion of left hand Qualifiers: Encounter type: initial encounter Qualified Code(s): S60.512A - Abrasion of left hand, initial encounter Is this a current diagnosis for this admission?: Yes (8) Hypercholesterolemia Is this a current diagnosis for this admission?: Yes (9) Pulmonary hypertension Is this a current diagnosis for this admission?: Yes (10) Thrombocytopenia Is this a current diagnosis for this admission?: Yes - Plan Summary Summary: 03/09/2020 The COPD exacerbation with acute on chronic respiratory failure will be treated with nebulizer therapy and supplemental oxygen. No evidence of infection therefore no antibiotics. The patient is suspected of having heart failure. There was cardiomegaly. An echocardiogram and cardiology consult have been ordered. He does have a history of coronary disease. His LDL is still above 100 and I will increase his simvastatin. His TSH was 45. While reviewing his anemia with hematology, a TSH level from there documentation revealed a TSH of 35 several months ago. I will increase his levothyroxine. His anemia is not new. He has been following with the machinist supervisor outside. We will coordinate with Dr. Solorzano 03/10/2020 The patient is doing better. His oxygen demands are less and is breathing more comfortably. Continue with the same regimen. Echocardiogram did reveal that the patient has a normal systolic function. He has grade 1/4 diastolic dysfunction and he has moderate to severe pulmonary hypertension. Continue current regimen. Under the large Band-Aid on his left wrist there was a foul-smelling wound that likely started as an abrasion. We will clean it with soapy water and start with saline dressings. The patient does not have a white count or fever and so no systemic antibiotics yet. Levothyroxine was increased to 200 mg The patient's LDL was not at goal. His simvastatin was increased to 40 mg daily. His hemoglobin did drop to 7.5. I discussed this with hematology. She will be ordering tests that he would have gotten at his follow-up appointment today and these are to monitor his chronic anemia. I did order a transfusion of packed r ed blood cells. He should feel better with the transfusion. At the end of the visit the patient did bring up placement. He said that he wants to retain some independence but is worried about being alone. I suggested, and he has been looking into, assisted living. I called the case picker and I did ask her to provide information on the area facilities for the patient. The echocardiogram showed severe pulmonary hypertension. Given the right heart failure and pulmonary hypertension the patient likely has cor pulmonale. Continue current treatment plan. - Time Total Critical Time (Minutes): 60 Medications reviewed and adjusted accordingly: Yes
[2020-03-17 14:58] LABS: ANION GAP 14 (5-19); BLOOD UREA NITROGEN 49 mg/dL (7-20); CALCIUM 8.6 mg/dL (8.4-10.2); CARBON DIOXIDE 23 mmol/L (22-30); CHLORIDE 99 mmol/L (98-107); GLUCOSE 146 mg/dL (75-110); POTASSIUM 3.8 mmol/L (3.6-5.0)
[2020-03-17] MEDS ORDERED: BUPRENORPHINE TD SCH (15:00)
--- NOTE | 2020-03-17 17:08 | PDOC CRITICAL CARE PROG REPORT ---
General Date:: 03/17/20 ICU Day:: 4 Hospital Day:: 8 Resuscitation Status: Do Not Intubate Medical Power of Tack Cleaner: Kisha Grant Events in the past 12 to 24 Hours:: 03.17.2020: Called by hospitalist service to evaluate the patient who had decompensated overnight. He had been suitable for transfer and was transferred yesterday evening to telemetry. In review it appears that he received 3 L of fluid with an additional liter in the last 24 hours. He had been initially given fluids in the I see you however this was discontinued. He had developed worsening shortness of breath that was not responding to conventional measures. An attempt at BiPAP was met with patient dyssynchrony and he required high flow oxygen plus facemask oxygen to maintain saturation above 80%. He had an increased work of breathing. Although he is DNR/DNI he was brought down to the ICU and attempt to try to salvage and improve his situation given the extreme change in disposition. He was able to ambulate in his room in the ICU. The thought was that the IV fluid volume may be contributing. In light of that he was given Lasix and time but despite this did not improve. Chest x-ray shows slight interstitial changes but more importantly atelectasis. He was brought down to the ICU placed on BiPAP and given nebulized Lasix. He has now improved somewhat but he is still on the 100% on the BiPAP machine to maintain an oxygen saturation that is now at 91 to 92% this will be weaning as a saturation improves. He also had some chest discomfort. EKG shows persistent right bundle branch block pattern with occasional PVCs. Troponin is not significantly changed or elevated. His C-reactive protein however is 134. His white blood cell count deion to 10 with 91% neutrophils. Repeat blood cultures are negative. 03.16.2020: Patient tolerated transition to routine nasal cannula and is being maintained on his usual 8 L/min. Oxygen saturations have been above 90%. No hemodynamic instability. 03.15.2020: Patient has been transition from high flow nasal cannula to usual nasal cannula at his perfunctory 8 L/min. He feels that he is at his baseline respiratory status. No chest pain no shortness of breath. Review of systems relevant to events:: 03.17.2020: His chest pain has improved with treatment. His shortness of breath has improved with BiPAP and treatment. There is been no fevers. He was given an extra dose of Solu-Medrol. 03.16.2020: Reviewed partial medical records from the [facility]. Patient is seen at the [facility]. He is noted from echo from last year to have significant pulmonary pretension. He was seen in the pulmonary clinic but there is no treatment provided and no commentary on the pulmonary hypertension. Patient discloses that he feels that he is at his baseline from a respiratory standpoint. He had low urine output last evening which responded to fluids. Creatinine partially improved. 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 III Reason for ICU Addmission:: Hypoxic and hypercarbic respiratory failure - Medications: Medications reviewed and adjusted accordingly: Yes Vasopressors:: none Sedation:: None Physical Exam Vital Signs: Temp Pulse Resp BP Pulse Ox 97.6 F 107 H 17 118/71 89 L 03/17/20 13:45 03/17/20 14:40 03/17/20 14:00 03/17/20 13:44 03/17/20 13:49 Intake & Output 03/16/20 03/17/20 03/18/20 06:59 06:59 06:59 Intake Total 1220 4475 372 Output Total 207 674 6301 Balance 240 3295 -778 Weight 109.2 kg 111.5 kg 109.2 kg Weight/Height Weight 109.2 kg Height 5 ft 10 in General appearance: PRESENT: cooperative, morbidly obese, other - Moderate distress Exam: Nonintubated morbidly obese 70-year-old white male who is in moderate distress. Evaluated multiple times. Improved on last examination. He has audible rhonchi that improved on multiple examinations Head exam: PRESENT: atraumatic, normocephalic Eye exam: PRESENT: conjunctiva pink, EOMI, PERRLA. ABSENT: conjunctival inje ction, nystagmus, scleral icterus Mouth exam: PRESENT: dry mucosa, neck supple, tongue midline Teeth exam: PRESENT: edentulous Neck exam: ABSENT: carotid bruit, JVD, lymphadenopathy, meningismus, thyromegaly, tracheal deviation, tracheostomy Respiratory exam: PRESENT: accessory muscle use, decreased breath sounds - Has decreased breath sounds bilaterally, retraction, rhonchi, tachypnea, other - All of the above improved on secondary and tertiary examination. ABSENT: unlabored Cardiovascular exam: PRESENT: RRR, +S1, +S2, tachycardia, other - Heart sounds are distant no audible murmurs Pulses: PRESENT: +1 pedal pulses bilateral GI/Abdominal exam: PRESENT: normal bowel sounds, soft. ABSENT: ascites, distended, guarding, mass, organolmegaly, rebound, tenderness Rectal exam: PRESENT: deferred Gentrourinary exam: PRESENT: indwelling catheter Extremities exam: PRESENT: pedal edema Musculoskeletal exam: ABSENT: deformity, dislocation Neurological exam: PRESENT: alert, altered, CN II-XII grossly intact, other - No focal deficits. Slightly more lethargic than usual. Over time oriented to p erson place and time able to communicate on BiPAP.. ABSENT: motor sensory deficit, aphasic Psychiatric exam: PRESENT: anxious Focused psych exam: PRESENT: psychomotor agitation, restlessness Skin exam: PRESENT: other - Left hand ulcer and abrasion with healing and no purulence. ABSENT: cyanosis, erythema Tubes/Lines: PRESENT: Other - Sequeira type urinary catheter Laboratory/Radiographs Laboratory Results: 03/17/20 04:49 03/17/20 14:31 03/17/20 03/17/20 03/17/20 04:49 04:49 10:00 WBC 9.7 D RBC 2.27 L Hgb 8.4 L Hct 23.8 L MCV 105 H MCH 37.1 H MCHC 35.3 RDW 21.9 H Plt Count 45 L Seg Neutrophils % Not Reportable Carbonic Acid 0.94 L HCO3/H2CO3 Ratio 18:1 ABG pH 7.37 ABG pCO2 31.2 L ABG pO2 52.0 L ABG HCO3 17.7 L ABG O2 Saturation 86.4 L ABG Base Excess -6.6 FiO2 100% Sodium 134.5 L Potassium 3.9 Chloride 101 Carbon Dioxide 22 Anion Gap 12 BUN 47 H Creatinine 1.35 H Est GFR ( Amer) > 60 Glucose 136 H Calcium 8.5 Phosphorus 3.8 Magnesium 2.1 03/17/20 14:31 WBC RBC Hgb Hct MCV MCH MCHC RDW Plt Count Seg Neutrophils % Carbonic Acid HCO3/H2CO3 Ratio ABG pH ABG pCO2 ABG pO2 ABG HCO3 ABG O2 Saturation ABG Base Excess FiO2 Sodium 135.8 L Potassium 3.8 Chloride 99 Carbon Dioxide 23 Anion Gap 14 BUN 49 H Creatinine 1.44 H Est GFR ( Amer) 58 L Glucose 146 H Calcium 8.6 Phosphorus Magnesium 2.1 03/09/20 03/09/20 03/10/20 11:45 11:45 05:06 Creatine Kinase 200 H CK-MB (CK-2) 8.77 H Troponin I < 0.012 NT-Pro-B Natriuret Pep 4220 H 3930 H 03/14/20 03/14/20 03/14/20 02:59 02:59 09:00 Creatine Kinase 81 87 CK-MB (CK-2) 5.26 H Troponin I 0.053 NT-Pro-B Natriuret Pep 03/14/20 03/14/20 03/14/20 09:00 15:00 15:00 Creatine Kinase 80 CK-MB (CK-2) 6.69 H 5.42 H Troponin I 0.053 0.058 NT-Pro-B Natriuret Pep 03/17/20 14:31 Creatine Kinase CK-MB (CK-2) Troponin I 0.041 NT-Pro-B Natriuret Pep Impressions: Chest CT 03/09/20 13:12 IMPRESSION: 1. Mild left basilar and lingular peripheral consolidation and ground-glass attenuation likely atelectatic change although infectious/inflammatory process not entirely excluded. 2. Significant three-vessel coronary atherosclerosis. Cardiomegaly. 3. Emphysema. 4. 8 mm right lower lobe ground-glass nodule. Follow-up as below. Hand X-Ray 03/15/20 00:00 IMPRESSION: 1. Osteopenia. 2. Previous amputation of the distal thumb. 3. Diffuse soft tissue edema. No acute process. Renal Ultrasound 03/16/20 00:00 IMPRESSION: Normal kidneys. There appears to be a mass in the base of the bladder. This is on the left side. Chest X-Ray 03/17/20 00:00 IMPRESSION: Unchanged radiographic appearance of the chest. In particular, the consolidative opacities in the inferior aspect of the left hemithorax that could represent a combination of pleural fluid, atelectasis and/or consolidation are unchanged. All labs, radiographs, diagnostic studies and EKGs were personally reviewed: Yes In addition, reports of radiographic and diagnostic studies were read: Yes Assessment and Plan - Diagnosis (1) Acute and chronic respiratory failure with hypoxia Is this a current diagnosis for this admission?: Yes (2) Cor pulmonale, chronic Is this a current diagnosis for this admission?: Yes (3) Pulmonary hypertension Is this a current diagnosis for this admission?: Yes (4) Open wound of left hand Is this a current diagnosis for this admission?: Yes (5) Light chain disease Is this a current diagnosis for this admission?: Yes (6) Macrocytosis Is this a current diagnosis for this admission?: Yes Plan Summary: 03.17.2020: Patient's respiratory status has worsened and this appears to be a combination of atelectasis and possible mild volume overload. He has responded to treatment but still is somewhat hypoxic on BiPAP. His EKG shows occasional PVCs and it is possible given his chest discomfort that this might be related to underlying cardiac disease or related to his respiratory status. Given his continued decline and his significant pulmonary hypertension with possible coronary disease he is not a candidate for sildenafil or further therapy. He is on high BiPAP settings and high FiO2 and attempt to place him on high flow here in the ICU were met with worsening hypoxia. He has limited reserve. We are also awaiting hematology for consultation regarding possible multiple myeloma. Given that, I had his daughter Kisha who is his medical power of deputy county attorney return to the hospital. We had a further lengthy discussion regarding his care. Patient has now decided to transition to hospice. If he continues to decline will transition to comfort measures only here however I have asked case management to determine whether we can get him to an inpatient hospice setting for appropriate care and management. We will also have them consider home hospice if the family is agreeable and can accommodate this. We will continue to provide supportive measures and attempt to give this patient some time to be with his family. His prognosis is very poor and he is not expected to survive more than a few days and certainly no more than 3 months. 03.16.2020: Respiratory: Patient's respiratory status has improved. Overall has poor prognosis. Had lengthy discussion with the patient about his pulmonary hypertension. He may be an candidate for phosphodiesterase therapy as noted from yesterday's note. We will have pulmonary evaluate the patient. He is possibly a candidate for VQ scan to look at the perfunctory ability of lung and perfusion. Continue current therapy. He will need to be placed on his long- acting beta agonist therapy before discharge. Have reconsulted Dr. Serrano who is aware of the patient. Patient had a consult and appointment with Dr. Serrano last week but unfortunately was unable to make it. He has had multiple hospital admissions which have prevented him from appropriate follow-up at times. Infectious: Inadvertently reported as staph aureus bacteremia is not the case. Blood cultures are still pending. Cultures from wound are MSSA and he has been transitioned to Ancef. We will continue to monitor and follow his counts. White count has improved significantly. Continue Ancef for at least 5 to 7 days and longer if blood cultures are positive. Will need transesophageal echo if if there is bacteremia and it persist. The left hand wound is the same hand that he had previous malignancy in. X-rays do not show any osteomyelitis or any bony changes however if the wound persist a biopsy will need to be undertaken. Cardiac: Patient's cardiac status has remained non-labile. He does have significant pulmonary hypertension with right ventricular strain and cor pulmonale which is chronic. He may be a candidate for phosphodiesterase and digoxin therapy to be considered by the pulmonary service. Hematologic: Patient has a macrocytosis which is can concerning for malignancy. He also has light chain disease with elevation in both lambda and kappa subtypes. I have asked hematology to evaluate the patient for possible amyloidosis and/or multiple myeloma. He does not require transfusion however given his pulmonary disease I would expect a slight higher elevation in hemoglobin and hematocrit from chronic hypoxia. The fact that he has a low hemoglobin/hematocrit in the face of this points to a significant dysfunction. He does not have reticulocytosis which points to marrow issue. Will need to be prudent to watch for hypoxia worsening from anemia. Folate and B12 are appropriate. It appears that he was undergoing some type of work-up as an outpatient at the [facility] but no formal hematologic evaluation was found. 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 Endocrine: Patient's TSH was elevated and his Synthroid has been increased. Renal: Acute on chronic renal failure. He has responded to IV fluids. A judicious balance of fluid therapy will need to be maintained given his pulmonary hypertension. Have changed him to LR at 75 cc an hour. Renal ultrasound has been ordered as well. Metabolic: Continue to monitor and support as needed. Follow calcium with the possibility of multiple myeloma. Alimentary: No active issues continue to follow supportively Neurologic: No active issues. Patient's Neurontin has been held because of ence phalopathy and concern for hypercarbia. He is on subcutaneous buprenorphine. He has a history of chronic pain Sedation: Watch for sedation issues especially if Neurontin needs to be restarted. Lines/Tubes: None Other: Had lengthy discussion with the patient about goals of care and end-of-life. He would want full resuscitation and placed on mechanical ventilation but does not want to be maintained on this for an indefinite period of time. He does not have a complete understanding of the terminal nature of his disease and should a malignancy be discovered further amplification of the complexities of his process will need to be discussed with him and his family. Had a lengthy discussion with his daughter Kisha who is in route to the hospital to discuss goals of care. Although the patient is not immediately in danger the extent of his illness is such that established goals of care will need to be maintained. We will report the discussion in a progress note format should the meeting occur. 03.15.2020: Patient's respiratory status has improved. Will continue to monitor accordingly. He has significant pulmonary pretension that may only be palliated with phosphodiesterase inhibitor such as sildenafil. We will reserve this for now. Combination of digoxin and sildenafil as of sometimes been found to be beneficial and at least a 6-minute walk test. Patient has staph aureus bacteremia presumably from of left hand wound. Have ordered a x-ray to rule out osteomyelitis-. He is no longer hypotensive and he is off vasopressor therapy. We will consider transition to stepdown care in the next 12 to 24 hours if he remains stable. Continue steroids but reduce dose to every 12. Follow-up on routine blood cultures. Critical Time Critical Time (minutes): 80 Level of Care: ICU Anticipated discharge: Hospice Within: within 24 hours -: 1. The care of a critical patient is a dynamic process. This note is a repres entative synopsis but static in nature. The timeframe for treatments given in order is not necessarily the actual time these treatments may have been done. 2. This patient requires critical care secondary to ongoing requirements for therapy not offered or safe outside the critical care environment. Transfer to a lower level of care will result in altered life or limb morbidity and mortality. 3. Multidisciplinary rounds completed. 4. ABCDE bundle addressed.
[2020-03-17] MEDS ORDERED: FENTANYL CITRATE INJ/PF 100 MCG/2 ML AMPUL IV PRN (17:22)
[2020-03-17] MEDS ORDERED: FENTANYL CITRATE INJ/PF 100 MCG/2 ML AMPUL IV ONE (17:30)
[2020-03-17] MEDS ORDERED: MIDODRINE HCL 5 MG TABLET PO SCH (18:00)
--- NOTE | 2020-03-17 19:37 | EKG REPORT ---
SEVERITY:- ABNORMAL ECG - SINUS TACHYCARDIA MULTIPLE VENTRICULAR PREMATURE COMPLEXES RIGHT BUNDLE BRANCH BLOCK : Confirmed by: Sai Bender MD 17-Mar-2020 19:37:37
[2020-03-17] MEDS ORDERED: LORAZEPAM INJ 2 MG/1 ML VIAL ONE (20:57)
[2020-03-17] MEDS ORDERED: LORAZEPAM INJ 2 MG/1 ML VIAL IV ONE (21:15)
[2020-03-17] MEDS: MONTELUKAST SODIUM 10 MG TABLET PO SCH (21:18)
[2020-03-17] MEDS: ASPIRIN 81 MG TABLET, ENT COATED PO SCH (21:18)
[2020-03-17] MEDS ORDERED: FUROSEMIDE INJ/PF 20 MG/2 ML SDV IV SCH (22:00)
[2020-03-17 23:39] LABS: INTERNATIONAL RATION (INR) 1.61; PROTHROMBIN TIME 19.3 SEC (11.4-15.4)
[2020-03-17 23:40] LABS: FIBRINOGEN 402 mg/dL (209-497)
[2020-03-17 23:43] LABS: D-DIMER 3.15 ug/mL (0.00-0.50)
[2020-03-17 23:44] LABS: ALBUMIN 3.3 g/dL (3.5-5.0); ALKALINE PHOSPHATASE 69 U/L (38-126); ASPARTATE AMINO TRANSFERASE 63 U/L (17-59); BILIRUBIN,DIRECT 0.5 mg/dL (0.0-0.4); BILIRUBIN,TOTAL 1.1 mg/dL (0.2-1.3); BLOOD UREA NITROGEN 53 mg/dL (7-20); CALCIUM 8.5 mg/dL (8.4-10.2); CARBON DIOXIDE 15 mmol/L (22-30); CHLORIDE 100 mmol/L (98-107); GLUCOSE 201 mg/dL (75-110); PHOSPHORUS 5.7 mg/dL (2.5-4.5); POTASSIUM 4.6 mmol/L (3.6-5.0); TOTAL PROTEIN 6.3 g/dL (6.3-8.2)
[2020-03-17 23:51] LABS: ANION GAP 21 (5-19)
[2020-03-17 23:53] LABS: ARTERIAL BLOOD BASE EXCESS -14.8 mmol/L; ARTERIAL BLOOD H2CO3 0.95 mmol/L (1.05-1.35); ARTERIAL BLOOD O2 SATURATION 83.5 % (94-98); ARTERIAL BLOOD PCO2 31.7 mmHg (35-45)
[2020-03-17 23:54] LABS: ARTERIAL BLOOD FIO2 100%
[2020-03-18] MEDS ORDERED: NORMAL SALINE 1000 ML 500 ML IV ONE (00:36)
[2020-03-18] MEDS ORDERED: ATROPINE SULFATE INJ 1 MG/1 ML VIAL ONE (00:51)
[2020-03-18] MEDS ORDERED: EPINEPHRINE INJ 1 MG/10 ML DISP.SYRIN ONE ×2 (00:53→00:58)
--- NOTE | 2020-03-18 01:10 | RADIOLOGY REPORT (SQ) ---
EXAM DESCRIPTION: XR CHEST 1 VIEW COMPLETED DATE/TME: 03/17/2020 22:59 CLINICAL HISTORY: refract hypoxia; r/o worse infiltrate/congestion COMPARISON: March 17, 2020 FINDINGS: Abnormal opacity at the left lower lung is unchanged compared with the prior exam. There is a new left perihilar opacity. There is shift of the mediastinum to the left which could be secondary to underlying volume loss/atelectasis. EKG leads project over the chest. IMPRESSION: New left perihilar opacity could be secondary to an infectious process. Increased opacity at the left lower lung is unchanged and could represent a combination of pleural fluid and atelectasis. Recommend follow-up.
[2020-03-18] MEDS: IPRATROPIUM/ALBUTEROL 0.5-2.5 MG/3 ML AMPUL NEB SCH (02:29)
[2020-03-18 02:34] VITALS: BP 65/51
[2020-03-18] MEDS ORDERED: EPINEPHRINE INJ 1 MG/10 ML DISP.SYRIN IV ONE ×2 (03:15)
[2020-03-18] MEDS ORDERED: ATROPINE SULFATE INJ 1 MG/1 ML VIAL IV ONE (03:15)
--- NOTE | 2020-03-18 06:30 | Death Summary ---
Summary Date : 03/18/20 Time of :: 01:06 Autopsy: No Resuscitation Status: Do Not Resuscitate - and Do Not Intubate - Final Diagnosis (1) Acute and chronic respiratory failure with hypoxia Is this a current diagnosis for this admission?: Yes (2) Cor pulmonale, chronic Is this a current diagnosis for this admission?: Yes (3) Pulmonary hypertension Is this a current diagnosis for this admission?: Yes (5) Hypothyroidism Is this a current diagnosis for this admission?: Yes (6) Light chain disease Is this a current diagnosis for this admission?: Yes (7) Macrocytosis Is this a current diagnosis for this admission?: Yes (8) Open wound of left hand Is this a current diagnosis for this admission?: Yes Hospital Course:: Jose Croft is a 70 year-old male with a past medical history significant for chronic respiratory failure due to hypoxia and hypercapnia on 8L home O2, COPD, chronic Cor Pulmonale, CAD, and hypothyroidism who was admitted for acute on chronic respiratory failure, COPD exacerbation, severe pulmonary HTN, and right- sided heart failure with preserved ejection fraction of left ventricle. Throughout his hospital course he was diuresed with improvement of his oxygen requirements transitioning from non-invasive ventilation to his home 8L O2 regimen for which he was subsequently transferred to the medical melo and Cardiology signed off while making arrangements for outpatient follow up. Earlier yesterday morning, Mr Croft reportedly became hypoxic with an SPO2 in the 70's while ambulating around his room for which he returned to ICU, received diuretics for presumed volume overload given intake documentation of >4L in a 24 hr period, and was placed on non-invasive ventilation for refractory hypoxia. A very detailed conversation was had between Dr Luna, Mr Croft, and Kisha Croft (patient's daughter) for which the decision was made for Mr Croft to be a DNR/DNI. Patient's SPO2 has been in the low 80's for which Mr Croft's oxygenation initially improved after placing him in right lateral decubitus position for optimal lung perfusion with a labile SPO2 of 91-98% (from 83%). However, this ultimately did not last despite bronchodilator nebulizer treatments and patient became hypoxic again. A CXR was obtained to evaluate for worsening intrapulmonary process which demonstrated increased left-sided infiltrate now involving left upper lobe which may be pneumonia. However, patient was already on non-invasive ventilation with an exhaled tidal volume of 1L and unlabored, though he remained with refractory hypoxia despite 100% supplemental oxygen. It was later discovered that the 4L of IV intake was likely somewhat of an error due to electronic medical record format limitations and the patient had likely only received approximately 2L in the 24 hr period as there was no documentation of boluses besides maintenance IV fluid with antibiotic volumes that were accounted for. CXR from the morning didn't demonstrate significant pulmonary congestion. Pulse oximeter was no longer able to obtain a reading for which an ABG was performed demonstrating metabolic acidosis with hypoxemia with an increasing base deficit, worsening SANTO, for which a 500 mL fluid bolus was administered for intravascular volume depletion on bedside [id number] ultrasound by myself. A d-dimer was obtained and elevated with the possibility of a PE contributing to hypoxia, but a Heparin infusion was not initiated awaiting the CBC results to ensure Hgb not downtrending with worsening thrombocytopenia. Unfortunately, lab informed me that we had to redraw the CBC which I helped obtain using ultrasound, but the results were not available in time as the patient continued to deteriorate rapidly. He became unresponsive, with an agonal type of breathing pattern, and developed bradycardia for which I notified his daughter Kisha that Mr Croft was dying. We administered Atropine when HR was 45 with a pulse with no significant response followed by Epinephrine while he also still had a pulse to attempt keeping him alive until Kisha was able to arrive at [facility]. However, before I hung up with Kisha, Mr Croft's HR decreased to 20 from 75 bpm and I notified her that he will not survive until she arrives from approximately 20 minutes away. The patient's wishes were respected and maintained with no compressions, ambu-bag assisted ventilations, or intubation. Mr Croft subsequently developed PEA followed by asystole. His exam was unresponsive with dilated/fixed pupils, no cough/gag/corneal reflexes, no s pontaneous respiratory effort, and no pulmonary or cardiac sounds auscultated for which his was pronounced. Time of : 01:[address] Luna and Mr Croft's daughter, Kisha, were both notified. Critical Care Time Spent: 60 minutes
[2020-03-18 06:40] LABS: HEMATOCRIT 32.1 % (37.9-51.0); MEAN CORPUSCULAR HEMOGLOBIN 36.2 pg (27.0-33.4); MEAN CORPUSCULAR HGB CONC 33.1 g/dL (32.0-36.0); RED BLOOD COUNT 2.94 10^6/uL (4.35-5.55)
[2020-03-18 06:42] LABS: ANISOCYTOSIS 3+; BAND NEUTROPHILS % (MANUAL) 9 % (3-5); BASOPHILS % (MANUAL) 0 % (0-2); EOSINOPHILS % (MANUAL) 0 % (0-6); LYMPHOCYTES % (MANUAL) 4 % (13-45); MONOCYTES % (MANUAL) 0 % (3-13); OVALOCYTES SLIGHT; PLATELET COMMENT DECREASED; POIKILOCYTOSIS SLIGHT; SCHISTOCYTES SLIGHT; SEGMENTED NEUTROPHILS % (MAN) 87 % (42-78); TOTAL CELLS COUNTED 100; TOXIC GRANULATION 1+
[2020-03-18 06:43] LABS: HEMOGLOBIN 10.6 g/dL (13.5-17.0); MEAN CORPUSCULAR VOLUME 109 fl (80-97); WHITE BLOOD COUNT 24.4 10^3/uL (4.0-10.5)
[2020-03-18 06:44] LABS: PLATELET COUNT 54 10^3/uL (150-450)
[2020-03-19 13:37] LABS: ANTIMYELOPEROXIDASE (MPO) AB <9.0 U/mL (0.0-9.0); CYTOPLASMIC (C-ANCA) <1:20 titer (Neg:<1:20)
[2020-03-20 13:02] LABS: ATYPICAL PANCA <1:20 titer (Neg:<1:20)
[2020-03-24] MEDS ORDERED: BUPRENORPHINE TD SCH (10:00)
== END 2020-03-18 01:06 | DRG 189 ==
LOC: ER 11:53 → EH 16:23 → 4N 19:17 → 3W 03-12 11:35 → ICU 03-13 21:58 → 4W 03-16 21:14 → ICU 03-17 13:41
PROVIDERS: ADMIT Hospitalist; ATTEND Internal Medicine Critical Care Medicine
PROC: 30233N1 Transfusion of Nonautologous Red Blood Cells into Peripheral Vein, Percutaneous Approach (ICD-10-PCS; principal; 2020-03-10)
PROC: 5A09457 Assistance with Respiratory Ventilation, 24-96 Consecutive Hours, Continuous Positive Airway Pressure (ICD-10-PCS; 2020-03-13)
DX: J96.21 Acute and chronic respiratory failure with hypoxia (principal); J18.9 Pneumonia, unspecified organism; J44.1 Chronic obstructive pulmonary disease with (acute) exacerbation; L03.114 Cellulitis of left upper limb; N17.9 Acute kidney failure, unspecified; E87.1 Hypo-osmolality and hyponatremia; E85.81 Light chain (AL) amyloidosis; I50.810 Right heart failure, unspecified; I25.10 Atherosclerotic heart disease of native coronary artery without angina pectoris; E78.5 Hyperlipidemia, unspecified; E03.9 Hypothyroidism, unspecified; N40.0 Benign prostatic hyperplasia without lower urinary tract symptoms; M19.90 Unspecified osteoarthritis, unspecified site; G89.29 Other chronic pain; D53.9 Nutritional anemia, unspecified; I51.7 Cardiomegaly; X58.XXXA Exposure to other specified factors, initial encounter; S60.812A Abrasion of left wrist, initial encounter; I27.29 Other secondary pulmonary hypertension; I27.81 Cor pulmonale (chronic); D75.89 Other specified diseases of blood and blood-forming organs; E78.00 Pure hypercholesterolemia, unspecified; B95.61 Methicillin susceptible Staphylococcus aureus infection as the cause of diseases classified elsewhere; N18.3 Chronic kidney disease, stage 3 (moderate); I95.9 Hypotension, unspecified; D69.6 Thrombocytopenia, unspecified; J96.22 Acute and chronic respiratory failure with hypercapnia; Z66 Do not resuscitate; I71.4 Abdominal aortic aneurysm, without rupture; Z85.828 Personal history of other malignant neoplasm of skin; Z88.7 Allergy status to serum and vaccine; Z91.012 Allergy to eggs; Z87.891 Personal history of nicotine dependence; Z99.81 Dependence on supplemental oxygen; Z79.899 Other long term (current) drug therapy; I25.2 Old myocardial infarction
CPT/HCPCS: 36415; 36430; 36600; 71045; 71250; 76770; 80048; 80053; 80061; 81001; 82232; 82550; 82553; 82607; 82728; 82746; 82784; 82803; 83516; 83540; 83550; 83735; 83880; 83883; 84100; 84439; 84443; 84466; 84481; 84484; 85025; 85027; 85045; 85379; 85384; 85610; 85652; 85730; 86140; 86256; 86320; 86850; 86900; 86901; 86920; 87040; 87070; 87077; 87186; 87205; 93005; 93010; 93306; 94640; 94660; 94799; 99221; 99285; 99291; 99292; C1887; J0171; J0461; J0690; J1265; J1940; J2020; J2060; J2185; J2270; J2550; J2920; J2930; J3370; J3490; J7030; J7060; J7120; J7620; P9016